=== PATIENT | female | born 1975 | race American Indian/Alaskan Native ===

== ENCOUNTER 2018-09-14 01:53 | Inpatient (IN) | payer SELFPAY ==
--- NOTE | 2018-09-14 02:35 | Emergency Department Report ---
ED Abdominal Pain HPI - General Stated Complaint: N & V Time Seen by Provider: 09/14/18 02:04 - History of Present Illness Initial Comments: 43-year-old presents to ED with complaint of abdominal pain. Patient is accompanied by her mother who is her slot machine mechanic. States patient has history of a learning disability, however no other medical problems. Mother reports patient has been having abdominal pain, had one episode of emesis earlier today. Mother states they were both walking home from a friend's house and patient seemed to become weak and have trouble walking. Denies fever, cough, diarrhea or constipation. Patient is poor historian, able to somewhat answer questions. MD Complaint: abdominal pain -: days(s) (1) Location: suprapubic Quality: other (unable to state) Consistency: other (unable to state) Associated Symptoms: nausea, vomiting. denies: diarrhea, fever, chills, constipation - Related Data Home Medications Medication Instructions Recorded Confirmed Last Taken No Known Home Medications [No 09/14/18 09/14/18 Unknown Reported Home Medications] Allergies Allergy/AdvReac Type Severity Reaction Status Date / Time No Known Allergies Allergy Unverified 09/14/18 02:35 ED Review of Systems ROS: Stated complaint: N & V Other details as noted in HPI Comment: Unobtainable due to pts medical conditions (pt is poor historian) Genitourinary: abnormal menses (mother reports heavy menstrual periods recently) ED Past Medical Hx - Medications Home Medications: Home Medications Medication Instructions Recorded Confirmed Last Taken Type No Known Home Medications [No 09/14/18 09/14/18 Unknown History Reported Home Medications] ED Physical Exam - General General appearance: alert, in no apparent distress - Head Head exam: Present: atraumatic, normocephalic - Eye Eye exam: Present: normal appearance - ENT ENT exam: Present: mucous membranes moist - Neck Neck exam: Present: normal inspection - Respiratory Respiratory exam: Present: normal lung sounds bilaterally. Absent: respiratory distress - Cardiovascular Cardiovascular Exam: Present: regular rate, normal rhythm - GI/Abdominal GI/Abdominal exam: Present: tenderness, other (firm mass palpated in lower abdomen). Absent: distended - Rectal Rectal exam: Present: heme (-) stool - External exam: Present: other (no active bleeding) - Extremities Exam Extremities exam: Present: normal inspection - Neurological Exam Neurological exam: Present: alert, other (moves all extremities) - Skin Skin exam: Present: warm, dry, intact, normal color ED Course Vital Signs 09/14/18 09/14/18 09/14/18 02:25 03:30 05:00 Temperature 97.2 F L 93.3 F L Pulse Rate 81 65 91 H Respiratory 22 20 35 H Rate Blood Pressure 108/72 Blood Pressure 102/60 97/54 [Left] O2 Sat by Pulse 97 99 99 Oximetry 09/14/18 09/14/18 09/14/18 05:56 06:22 06:30 Temperature Pulse Rate 89 94 H 95 H Respiratory 31 H 22 Rate Blood Pressure Blood Pressure 93/53 [Left] O2 Sat by Pulse 99 99 Oximetry ED Medical Decision Making - Lab Data Result diagrams: 09/14/18 20:21 09/14/18 20:21 - Radiology Data Radiology results: report reviewed, image reviewed - Medical Decision Making 43 year old female with weakness and abdominal pain. Patient is poor historian. Mom states no PCP, no history of any medical problems, only a learning disability. On exam patient has firm mass in the suprapubic area. Per CT, this seems to be a fibroid uterus. Mother states patient has been recently having heavy periods. Patient's hemoglobin resulted at 2.7. This was confirmed on repeat. Patient has multiple lab abnormalities including mildly elevated WBCs, severely elevated lactic acid, bicarbonate level of 8. Blood and urine cultures sent, patient covered empirically with antibiotics. Patient resuscitated with IV fluids, 4 units of PRBCs ordered for patient, along with a bicarbonate drip. Patient also has elevated anion gap, however, glucose normal, alcohol level normal, only trace ketones in the urine. Patient also has acute renal failure with creatinine of 1.8. Spoke w/ hospitalist, Dr Leroy, for admission. Requests bridge orders be placed. - Differential Diagnosis fibroids, , constipation Critical Care Time: Yes Critical care time in (mins) excluding proc time.: 60 Critical care attestation.: If time is entered above; I have spent that time in minutes in the direct care of this critically ill patient, excluding procedure time. Critical Care Time: 60 minutes ED Disposition Clinical Impression: Severe anemia, Fibroid uterus, Metabolic acidosis, Acute renal failure, Menorrhagia Disposition: OP ADMIT IP TO THIS HOSP Is pt being admited?: Yes Condition: Critical Time of Disposition: 04:59
[2018-09-14 03:04] LABS: Red Blood Count 1.27 M/mm3 (3.65-5.03)
[2018-09-14 03:05] LABS: Hematocrit 10.4 % (30.3-42.9); Hemoglobin 2.7 gm/dl (10.1-14.3); Mean Corpuscular HGB Conc 26 % (30-34); Mean Corpuscular Volume 82 fl (79-97); Red Cell Distribution Width 31.8 % (13.2-15.2)
[2018-09-14 03:06] LABS: Platelet Count 477 K/mm3 (140-440)
[2018-09-14 03:15] LABS: Amorphous Crystals,Urine 2+; Bilirubin,Urine NEG (Negative); Blood,Urine SM (Negative); Color,Urine Yellow (Yellow); Hyaline Casts,Urine 12 /LPF; Mucus,Urine FEW /HPF; Urobilinogen,Urine < 2.0 mg/dL (<2.0)
[2018-09-14 03:17] LABS: Alanine Aminotransferase 23 units/L (7-56); Albumin 4.1 g/dL (3.9-5); BUN/Creatinine Ratio 8; Blood Urea Nitrogen 17 mg/dL (7-17); Calcium 8.6 mg/dL (8.4-10.2); Hemolysis Index 1
[2018-09-14 03:19] LABS: Bilirubin,Direct < 0.2 mg/dL (0-0.2)
[2018-09-14] MEDS ORDERED: NACL 0.9% 1000 ML IV ONE (03:26)
[2018-09-14 03:55] LABS: INR 1.58 (0.87-1.13); Partial Thromboplastin Time 31.1 Sec. (24.2-36.6)
[2018-09-14 04:04] LABS: Albumin 3.9 g/dL (3.9-5); Calcium 8.7 mg/dL (8.4-10.2)
[2018-09-14 04:08] LABS: Amphetamine Screen,Urine PRESUMPTIVE NEGATIVE; Benzodiazepines Screen,Urine PRESUMPTIVE NEGATIVE; Cannabinoid Screen,Urine PRESUMPTIVE NEGATIVE; Cocaine Screen,Urine PRESUMPTIVE NEGATIVE; Methadone Screen,Urine PRESUMPTIVE NEGATIVE; Opiate Screen,Urine PRESUMPTIVE NEGATIVE
[2018-09-14] MEDS ORDERED: ZOSYN/NS 4.5GM/100ML 4.5 GM/100 ML VIAL IV ONE (04:11)
[2018-09-14 04:13] LABS: Hemoglobin 2.7 gm/dl (10.1-14.3); Red Blood Count 1.28 M/mm3 (3.65-5.03)
[2018-09-14 04:14] LABS: Hematocrit 10.4 % (30.3-42.9); Mean Corpuscular HGB Conc 26 % (30-34); Mean Corpuscular Volume 81 fl (79-97)
[2018-09-14 04:15] LABS: Platelet Count 474 K/mm3 (140-440); Red Cell Distribution Width 33.7 % (13.2-15.2)
--- NOTE | 2018-09-14 04:37 | XRay Report ---
FINAL REPORT PROCEDURE: XR CHEST 1V AP TECHNIQUE: Chest radiograph anteroposterior view. CPT 60623 HISTORY: sob COMPARISON: No prior studies are available for comparison. FINDINGS: Heart: The heart is enlarged Mediastinum/Vessels: Normal. Lungs/Pleural space: The lungs are expanded. There are no infiltrates, effusions or pneumothoraces.. Bony thorax: No acute osseous abnormality. Life support devices: None. IMPRESSION: The heart is enlarged The lungs are expanded. There are no infiltrates, effusions or pneumothoraces.. .
--- NOTE | 2018-09-14 04:39 | Cat Scan Report ---
FINAL REPORT PROCEDURE: CT HEAD/BRAIN WO CON TECHNIQUE: Computerized tomography of the head was performed without contrast material. HISTORY: ams COMPARISON: No prior studies are available for comparison. FINDINGS: Skull and scalp: Normal. Paranasal sinuses: Normal. Ventricles and subarachnoid spaces: Normal. Cerebrum: No evidence of hemorrhage, acute infarction or mass . Cerebellum and brainstem: No evidence of hemorrhage, acute infarction or mass. Vasculature: Normal. Comments: None. IMPRESSION: Normal Examination
--- NOTE | 2018-09-14 04:50 | Cat Scan Report ---
FINAL REPORT PROCEDURE: CT ABDOMEN PELVIS WO CON TECHNIQUE: Computerized axial tomography of the abdomen and pelvis was performed without intravenous contrast. This study is performed without intravascular contrast material and its sensitivity for ab dominal and pelvic pathology, including neoplasms, inflammation, abscess, free fluid, thrombosis, art erial dissection and infarction, is reduced compared with a contrast enhanced study. HISTORY: abd pain COMPARISON: No prior studies are available for comparison. FINDINGS: Visualized lower thorax: No significant abnormality. Liver: Normal size and attenuation. Spleen: Normal size and attenuation. Gallbladder and biliary system: The gallbladder is not discretely visible.. Pancreas: Normal. Adrenals: Normal. Kidneys: There are no kidney stones or ureteral stones. There is no hydronephrosis.. GI tract: There is no bowel obstruction, colitis or enteritis. The appendix is normal.. Lymph nodes and mesentery: Normal. Vasculature: Normal. Bladder: Normal. Reproductive organs: The uterus is enlarged and contains multiple fibroid tumors. The overall size of the uterus including the fibroids is 25 centimeters by 15 centimeters x 11 centimeters. Several fibr oids are partially calcified and necrotic. No discrete ovarian abnormality is identified.. Peritoneum: There is no ascites or free air, abscess or adenopathy.. Musculoskeletal structures: No significant abnormality. IMPRESSION: The gallbladder is not discretely visible. There are no kidney stones or ureteral stones. There is no hydronephrosis. There is no bowel obstruction, colitis or enteritis. The appendix is normal. The uterus is enlarged and contains multiple fibroid tumors. The overall size of the uterus including the fibroids is 25 centimeters by 15 centimeters x 11 centimeters. Several fibroids are partially ca lcified and necrotic. No discrete ovarian abnormality is identified. There is no ascites or free air, abscess or adenopathy.
[2018-09-14] MEDS ORDERED: NACL 0.9% 500 ML 500 ML IV ONE (04:56)
[2018-09-14] MEDS ORDERED: SODIUM BICARBONATE 50 MEQ in NACL 0.9% 1000 ML 1,000 ML IV ONE (04:57)
[2018-09-14 05:11] LABS: Band Neutrophils # (Manual) 0.3 K/mm3; Basophils % (Manual) 0 % (0.0-1.8); Eosinophils % (Manual) 0 % (0.0-4.3); Total Cells Counted 100
[2018-09-14 05:12] LABS: Anisocytosis 2+; Hypochromasia 2+; Ovalocytes Few; Poikilocytosis 1+; Spherocytes Few; Tear Drop Cells Few
[2018-09-14 05:13] LABS: Platelet Estimate Consistent w Auto
[2018-09-14 05:14] LABS: Anisocytosis 2+; Band Neutrophils # (Manual) 0.4 K/mm3; Basophils % (Manual) 0 % (0.0-1.8); Eosinophils % (Manual) 0 % (0.0-4.3); Hypochromasia 2+; Poikilocytosis 1+; Spherocytes Few; Total Cells Counted 100
[2018-09-14 05:15] LABS: Ovalocytes Few; Platelet Estimate Consistent w Auto; Tear Drop Cells Few
--- NOTE | 2018-09-14 07:46 | History and Physical Report ---
History of Present Illness Date of examination: 09/14/18 Date of admission: 09/14/18 05:20 Chief complaint: Nausea vomiting abdominal pain 2 days History of present illness: 43-year-old female patient with significant past medical history of menorrhagia with heavy periods for the last 2-3 months Was brought to the emergency room with nausea and vomiting and abdominal pain of 2-3 days duration Patient and her mother both are poor historians, report that she had about 3-4 episodes of vomiting, denies hematemesis or melena No history of fever, does not have a physician, not on any medications, has noticed heavy periods passing clots for the last 2-3 months Last period ended on 07 of September, no active bleeding today Initial workup in the emergency room is consistent with severe anemia with hemoglobin of 2.7 CT abdomen and pelvis show fibroid uterus 2515 cm Patient also has severe metabolic and lactic acidosis, acute kidney injury, possible sepsis No other history available Patient is receiving second unit of PRBC. Past History Past Medical History: other (menorrhagia) Past Surgical History: tonsillectomy (dictated) Social history: lives with family. denies: smoking, alcohol abuse, prescription drug abuse Family history: hypertension Medications and Allergies Allergies Allergy/AdvReac Type Severity Reaction Status Date / Time No Known Allergies Allergy Unverified 09/14/18 02:35 Home Medications Medication Instructions Recorded Confirmed Last Taken Type No Known Home Medications [No 09/14/18 09/14/18 Unknown History Reported Home Medications] Active Meds: Active Medications Sodium Bicarbonate 50 meq/ (Sodium Chloride) 1,050 mls @ 100 mls/hr IV DIRECT ONE Stop: 09/14/18 15:26 Last Admin: 09/14/18 05:49 Dose: 100 mls/hr Documented by: Review of Systems Constitutional: weakness, no weight loss, no weight gain, no fever, no chills Ears, nose, mouth and throat: no ear discharge, no nasal congestion Cardiovascular: lightheadedness, no chest pain, no palpitations, no shortness of breath Respiratory: no cough with sputum, no hemoptysis, no shortness of breath Gastrointestinal: abdominal pain, nausea, vomiting, no diarrhea, no hematemesis Genitourinary Female: menorrhagia, other (fibroid uterus), no flank pain, no dysuria Menstruation: other (menorrhagia) Musculoskeletal: no myalgias, no arthritis Integumentary: no rash, no lesions Neurological: other (?developmental delay) Psychiatric: no anxiety, no depression Endocrine: no cold intolerance Hematologic/Lymphatic: no easy bruising, no easy bleeding Allergic/Immunologic: no urticaria, no allergic rhinitis Exam - Constitutional Vitals: Temp Pulse Resp BP Pulse Ox 93.3 F L 89 31 H 93/53 99 09/14/18 05:00 09/14/18 05:56 09/14/18 05:56 09/14/18 05:56 09/14/18 05:56 General appearance: Present: no acute distress, well-nourished, other (alert awake responding appropriately) - EENT Eyes: Present: PERRL, EOM intact - Neck Neck: Present: supple, normal ROM - Respiratory Respiratory effort: normal Respiratory: bilateral: diminished, negative: rales, rhonchi, wheezing - Cardiovascular Rhythm: regular Heart Sounds: Present: S1 & S2 - Extremities Extremities: no ischemia, No edema - Abdominal General gastrointestinal: Present: soft, non-tender, non-distended, normal bowel sounds - Integumentary Integumentary: Present: clear, warm - Musculoskeletal Musculoskeletal: strength equal bilaterally, generalized weakness - Psychiatric Psychiatric: appropriate mood/affect, other (slow speech, poor understanding) - Neurologic Neurologic: moves all extremities Results - Labs CBC & Chem 7: 09/14/18 09:20 09/14/18 03:14 Labs: Abnormal lab results 09/14/18 09/14/18 09/14/18 Range/Units 02:42 02:42 03:14 WBC 13.8 H (4.5-11.0) K/mm3 RBC 1.27 L (3.65-5.03) M/mm3 Hgb 2.7 L* (10.1-14.3) gm/dl Hct 10.4 L* (30.3-42.9) % MCH 21 L (28-32) pg MCHC 26 L (30-34) % RDW 31.8 H (13.2-15.2) % Plt Count 477 H (140-440) K/mm3 Seg Neuts % (Manual) 89.0 H (40.0-70.0) % Lymphocytes % (Manual) 7.0 L (13.4-35.0) % Nucleated RBC % 3.0 H (0.0-0.9) % Seg Neutrophils # Man 12.3 H (1.8-7.7) K/mm3 Lymphocytes # (Manual) 1.0 L (1.2-5.4) K/mm3 PT (12.2-14.9) Sec. INR (0.87-1.13) Chloride (98-107) mmol/L Carbon Dioxide 8 L* (22-30) mmol/L Creatinine 2.2 H (0.7-1.2) mg/dL Lactic Acid (0.7-2.0) mmol/L AST 42 H (5-40) units/L Lipase 74 H (13-60) units/L Salicylates (2.8-20.0) mg/dL Acetaminophen (10.0-30.0) ug/mL Crossmatch See Detail 09/14/18 09/14/18 09/14/18 Range/Units 03:14 03:14 03:14 WBC 13.6 H (4.5-11.0) K/mm3 RBC 1.28 L (3.65-5.03) M/mm3 Hgb 2.7 L* (10.1-14.3) gm/dl Hct 10.4 L* (30.3-42.9) % MCH 21 L (28-32) pg MCHC 26 L (30-34) % RDW 33.7 H (13.2-15.2) % Plt Count 474 H (140-440) K/mm3 Seg Neuts % (Manual) 85.0 H (40.0-70.0) % Lymphocytes % (Manual) 7.0 L (13.4-35.0) % Nucleated RBC % 2.0 H (0.0-0.9) % Seg Neutrophils # Man 11.6 H (1.8-7.7) K/mm3 Lymphocytes # (Manual) 1.0 L (1.2-5.4) K/mm3 PT 19.3 H (12.2-14.9) Sec. INR 1.58 H (0.87-1.13) Chloride 97.4 L (98-107) mmol/L Carbon Dioxide 8 L* (22-30) mmol/L Creatinine 1.8 H (0.7-1.2) mg/dL Lactic Acid (0.7-2.0) mmol/L AST 42 H (5-40) units/L Lipase (13-60) units/L Salicylates (2.8-20.0) mg/dL Acetaminophen (10.0-30.0) ug/mL Crossmatch 09/14/18 09/14/18 09/14/18 Range/Units 03:14 04:50 04:50 WBC (4.5-11.0) K/mm3 RBC (3.65-5.03) M/mm3 Hgb (10.1-14.3) gm/dl Hct (30.3-42.9) % MCH (28-32) pg MCHC (30-34) % RDW (13.2-15.2) % Plt Count (140-440) K/mm3 Seg Neuts % (Manual) (40.0-70.0) % Lymphocytes % (Manual) (13.4-35.0) % Nucleated RBC % (0.0-0.9) % Seg Neutrophils # Man (1.8-7.7) K/mm3 Lymphocytes # (Manual) (1.2-5.4) K/mm3 PT (12.2-14.9) Sec. INR (0.87-1.13) Chloride (98-107) mmol/L Carbon Dioxide (22-30) mmol/L Creatinine (0.7-1.2) mg/dL Lactic Acid 17.30 H* (0.7-2.0) mmol/L AST (5-40) units/L Lipase (13-60) units/L Salicylates < 0.3 L (2.8-20.0) mg/dL Acetaminophen < 5.0 L (10.0-30.0) ug/mL Crossmatch 09/14/18 Range/Units 04:50 WBC (4.5-11.0) K/mm3 RBC (3.65-5.03) M/mm3 Hgb (10.1-14.3) gm/dl Hct (30.3-42.9) % MCH (28-32) pg MCHC (30-34) % RDW (13.2-15.2) % Plt Count (140-440) K/mm3 Seg Neuts % (Manual) (40.0-70.0) % Lymphocytes % (Manual) (13.4-35.0) % Nucleated RBC % (0.0-0.9) % Seg Neutrophils # Man (1.8-7.7) K/mm3 Lymphocytes # (Manual) (1.2-5.4) K/mm3 PT (12.2-14.9) Sec. INR (0.87-1.13) Chloride (98-107) mmol/L Carbon Dioxide (22-30) mmol/L Creatinine (0.7-1.2) mg/dL Lactic Acid 15.30 H* (0.7-2.0) mmol/L AST (5-40) units/L Lipase (13-60) units/L Salicylates (2.8-20.0) mg/dL Acetaminophen (10.0-30.0) ug/mL Crossmatch Assessment and Plan --Severe anemia; secondary to menorrhagia due to fibroid uterus Type and cross, transfuse 4 units of PRBC Patient has no active bleeding today --Menorrhagia; secondary to fibroid uterus [facility] evaluation --Acute versus acute on chronic blood loss anemia; Transfuse PRBC, iron profile --History of fibroid uterus; no active bleeding [facility] evaluation --Acute kidney injury; vasomotor nephropathy Gentle IV hydration, avoid nephrotoxins, nephrology evaluation if needed --Lactic acidosis; probably secondary to metabolic acidosis Rule out sepsis, closely monitor --Severe metabolic acidosis; IV hydration, bicarbonate therapy as needed --Possible sepsis; empiric antibiotics Vanco and Zosyn Blood cultures, urine cultures, supportive care --Mild acute pancreatitis; mild elevation of lipase IV fluids, supportive cares --DVT prophylaxis; SCDs No pharmacological anticoagulation in view of severe anemia Closely monitor the patient and adjust management as needed Critical care time 50 minutes Follow critical care [facility] evaluation and recommendations Plan of care is reviewed with the patient, her mother at the bedside as well as her nurse
[2018-09-14] MEDS ORDERED: NACL 0.9% 500 ML 500 ML ONE (07:51)
[2018-09-14] MEDS ORDERED: VANCOMYCIN/NS 1 GM/250 ML 1 GM/250 ML BAG IV SCH (08:00)
[2018-09-14] MEDS ORDERED: NACL 0.9% 1000 ML 1,000 ML IV SCH (08:00)
[2018-09-14 09:47] LABS: Hematocrit 15.1 % (30.3-42.9); Hemoglobin 4.8 gm/dl (10.1-14.3)
[2018-09-14] MEDS ORDERED: LASIX IV ONE ×2 (10:00→12:30)
[2018-09-14] MEDS ORDERED: NACL 0.9% 1000 ML 1,000 ML with SODIUM BICARBONATE 50 MEQ IV SCH (10:00)
[2018-09-14] MEDS ORDERED: PROTONIX IV SCH (10:00)
[2018-09-14] MEDS ORDERED: VANCOMYCIN 1,250 MG in NACL 0.9% 250ML 250 ML IV ONE (11:00)
--- NOTE | 2018-09-14 11:26 | Consultation ---
History of Present Illness Consult date: 09/14/18 Requesting physician: FRANCISCO TODD History of present illness: PULMONARY/CCM CONSULT NOTE (Full dictation # [id number]) Please see dictated notes for full details Past History Past Medical History: other (menorrhagia) Past Surgical History: tonsillectomy (dictated) Social history: lives with family. denies: smoking, alcohol abuse, prescription drug abuse Family history: hypertension Medications and Allergies Allergies Allergy/AdvReac Type Severity Reaction Status Date / Time No Known Allergies Allergy Unverified 09/14/18 02:35 Home Medications Medication Instructions Recorded Confirmed Last Taken Type No Known Home Medications [No 09/14/18 09/14/18 Unknown History Reported Home Medications] Active Meds: Active Medications Piperacillin Sod/Tazobactam Sod (Zosyn/Ns 4.5gm/100ml) 4.5 gm in 100 mls @ 200 mls/hr IV Q8HR RAHEL; Protocol Sodium Bicarbonate 50 meq/ (Sodium Chloride) 1,050 mls @ 75 mls/hr IV DIRECT RAHEL Vancomycin HCl 1,250 mg/ (Sodium Chloride) 275 mls @ 166.667 mls/hr IV ONCE ONE Stop: 09/14/18 12:38 Vancomycin HCl (Vancomycin/Ns 1 Gm/250 Ml) 1 gm in 250 mls @ 167.007 mls/hr IV Q24HR RAHEL Pantoprazole Sodium (Protonix) 40 mg IV QDAY RAHEL Physical Examination Vital signs: Vital Signs Temp Pulse Resp BP Pulse Ox 97.2 F L 81 22 108/72 97 09/14/18 02:25 09/14/18 02:25 09/14/18 02:25 09/14/18 02:25 09/14/18 02:25 Results - Laboratory Findings CBC and BMP: 09/14/18 09:20 09/14/18 03:14 PT/INR, D-dimer PT 19.3 Sec. (12.2-14.9) H 09/14/18 03:14 INR 1.58 (0.87-1.13) H 09/14/18 03:14 Abnormal lab findings: Abnormal Labs 09/14/18 09/14/18 09/14/18 02:42 02:42 03:14 WBC 13.8 H RBC 1.27 L Hgb 2.7 L* Hct 10.4 L* MCH 21 L MCHC 26 L RDW 31.8 H Plt Count 477 H Seg Neuts % (Manual) 89.0 H Lymphocytes % (Manual) 7.0 L Nucleated RBC % 3.0 H Seg Neutrophils # Man 12.3 H Lymphocytes # (Manual) 1.0 L PT INR Chloride Carbon Dioxide 8 L* Creatinine 2.2 H Lactic Acid AST 42 H Lipase 74 H Salicylates Acetaminophen Crossmatch See Detail 09/14/18 09/14/18 09/14/18 03:14 03:14 03:14 WBC 13.6 H RBC 1.28 L Hgb 2.7 L* Hct 10.4 L* MCH 21 L MCHC 26 L RDW 33.7 H Plt Count 474 H Seg Neuts % (Manual) 85.0 H Lymphocytes % (Manual) 7.0 L Nucleated RBC % 2.0 H Seg Neutrophils # Man 11.6 H Lymphocytes # (Manual) 1.0 L PT 19.3 H INR 1.58 H Chloride 97.4 L Carbon Dioxide 8 L* Creatinine 1.8 H Lactic Acid AST 42 H Lipase Salicylates Acetaminophen Crossmatch 09/14/18 09/14/18 09/14/18 03:14 04:50 04:50 WBC RBC Hgb Hct MCH MCHC RDW Plt Count Seg Neuts % (Manual) Lymphocytes % (Manual) Nucleated RBC % Seg Neutrophils # Man Lymphocytes # (Manual) PT INR Chloride Carbon Dioxide Creatinine Lactic Acid 17.30 H* AST Lipase Salicylates < 0.3 L Acetaminophen < 5.0 L Crossmatch 09/14/18 09/14/18 04:50 09:20 WBC RBC Hgb 4.8 L* Hct 15.1 L* MCH MCHC RDW Plt Count Seg Neuts % (Manual) Lymphocytes % (Manual) Nucleated RBC % Seg Neutrophils # Man Lymphocytes # (Manual) PT INR Chloride Carbon Dioxide Creatinine Lactic Acid 15.30 H* AST Lipase Salicylates Acetaminophen Crossmatch
[2018-09-14] MEDS ORDERED: ZOSYN/NS 4.5GM/100ML 4.5 GM/100 ML VIAL IV SCH (14:00)
[2018-09-14] MEDS ORDERED: NACL 0.9% 500 ML 500 ML IV NR (14:33)
[2018-09-14] MEDS: ZOSYN/NS 2.25 GM/50ML 2.25 GM/50 ML BAG IV SCH ×2 (14:40→22:30)
--- NOTE | 2018-09-14 16:38 | Consultation ---
PULMONARY CRITICAL CARE CONSULTATION CONSULTING PHYSICIAN: Dr. Pierre, Emergency Room physician. REASON FOR CONSULTATION: Critical care management, severe symptomatic anemia, hemoglobin 2.7. CHIEF COMPLAINT AND HISTORY OF PRESENT ILLNESS: The patient is a 43-year-old -[place]aysian female with mild mental retardation otherwise and a history of menorrhagia with heavy periods. According to the mother, this was diagnosed early last year. She denies significantly heavy periods of late. Her history has been back and forth, but she told other physicians that she has had heavy periods for the last 2-3 months. She told me that her most recent period lasted 6 days instead of 3 days. She described as having clots during the period. She denies any hematochezia, melena, hematemesis, hemoptysis, or gross hematuria. She was brought into the Emergency Room secondary to nausea, vomiting, and abdominal pain that had been going on for about 2-3 days. In the initial workup, she was found to have a serum hemoglobin of 2.[address] abdomen and pelvis showed a fibroid uterus with the largest one of about 25 x 15 cm. She was found to have a severe metabolic acidosis and anion gap metabolic acidosis with a significant lactic acidosis also. She was admitted with early sepsis and we are asked to assist with management. When I stopped by to see the patient, she was feeling better. She had received 2 units of PRBC and was on her third unit. She did seem to also mention some chest pain. She denied any fevers or chills otherwise. The patient is a nonsmoker. That really is as much of the history of this presentation as I have. PAST MEDICAL HISTORY: Menorrhagia. PAST SURGICAL HISTORY: Tonsillectomy. MEDICATIONS: She was on at the time I stopped by to see her were reviewed. Pertinent medications included the following: Protonix 40 mg IV daily, Zosyn 2.25 grams IV q. 8 hours, sodium bicarbonate drip 50 mEq per liter of normal saline running at 75 mL per hour, also vancomycin 1 gram IV q. 24 hours. ALLERGIES: No known drug allergies. DIET: Well-built lady. Family denies acute weight loss or gain in the preceding few weeks to months. FAMILY AND SOCIAL HISTORY: Lives with her mother. Denies alcohol, tobacco, or illicit drug use or abuse. Family history, otherwise significant only for hypertension. REVIEW OF SYSTEMS: Difficult to obtain secondary to the patient's mental status. Otherwise, it is as in the body of the history above. She has had no seizures since she has been over here and no loss of consciousness. PHYSICAL EXAMINATION: VITAL SIGNS: At presentation in the emergency room, she was initially 97.2 Fahrenheit, but dropped to 93.3 degrees Fahrenheit with a pulse of 91, respiratory rate of 35, and blood pressure 97/54 with O2 sats of 99%, inspired oxygen concentration at that time was not recorded. When I stopped her, she was 100% on 2 liters nasal cannula. GENERAL: She is a well-built, middle-aged -Malaysian female with facies of mental retardation, resting peacefully in bed with a normal respiratory effort at rest. HEAD, EYES, EARS, NOSE, AND THROAT: She is anicteric. No conjunctival erythema. Oropharynx is moist. She is partially dentulous. No gross jugular venous distention, no thyromegaly. Grossly, no palpable lymph nodes in the supraclavicular or submandibular lymph node chains. LUNGS: Auscultation of both lung [place] unremarkable. Lungs are clear bilaterally. HEART: Heart sounds 1 and 2 are heard. They were regular in rate and rhythm at the time of my evaluation, without rubs or murmurs. ABDOMEN: Soft. It is protuberant. There is infraumbilical swelling that probably is related to the fibroid in question. It is mildly tender. EXTREMITIES: Without overt digital clubbing or cyanosis. No pedal edema. Dorsalis pedis pulses are palpable bilaterally. NEUROLOGIC: Pupils are equal, round, about 3 mm. Extraocular muscle movements are intact. They are reactive to light. She moves all 4 extremities spontaneously. SKIN: The skin is of normal turgor without cellulitis or rash. LABORATORY DATA: From my review are as follows: Admission white cell count 13,600 with a hemoglobin of 2.7, hematocrit of 10.4, platelet count of 474. No significant band forms reported. INR is elevated at 1.58. Serum sodium is 138, potassium 3.9, chloride 97, bicarbonate 8, BUN 17, creatinine 1.8, glucose was 82. Anion gap of 37 with a lactic acid level of 17.3 at that time. Liver function test: AST 42, otherwise essentially within normal limits. Lipase was slightly elevated at 74. Urinalysis was negative for leukocyte esterase and nitrites. Urine drug screen was negative. Aspirin, Tylenol, and alcohol levels were within expected limits. Two sets of blood cultures, no growth to date. A chest x-ray was done. I have reviewed the chest x-ray. I have also reviewed the radiologist's interpretation. I do agree there is gross cardiomegaly. There is slight increase in interstitial markings, nothing major. Perhaps mild interstitial edema, no gross pneumothorax, no gross bony fracture. A CT scan was also done of the abdomen and pelvis essentially reports the fibroid in question, describing it as 25 x 15 x 11 cm. There are multiple fibroids that are partially calcified necrotic. No discrete ovarian abnormality otherwise, no abscess, no hydronephrosis. A CT scan also of her head was done and that was read as being normal examination. ASSESSMENT: 1. Severe symptomatic anemia, probably secondary to menorrhagia, probably secondary to multiple uterine fibroids. 2. Menorrhagia. 3. Multiple uterine fibroids. 4. Acute blood loss anemia with a normal MCV, I doubt we are dealing with a chronic anemia. 5. Acute kidney injury, possibly vasomotor nephropathy. 6. Lactic acidosis. 7. Systemic inflammatory response syndrome. 8. Severe metabolic acidosis. 9. Early sepsis. 10. Possible pancreatitis. 11. Mild mental retardation. 12. Leukocytosis. 13. Elevated serum INR. PLAN: I do feel also we need to rule out the ingestion of any occult fluid that may actually cause this high anion gap metabolic acidosis. I will order a serum osmolality just to make sure we are not dealing with a high osmolar gap acidosis. We will continue blood transfusions. She will also get platelets and cryoprecipitate. ROAD TRAFFIC CONTROLLER consultation will be in order, as with this degree of anemia she might benefit from a fibroidectomy or perhaps even a hysterectomy. Oxygen will be supplemented to keep sats greater than or equal to about 90%. She will be on GI and DVT prophylaxis. I will repeat a lactic acid level to ensure that we are headed in the right direction. We will continue empiric antibiotic therapy for now, but I will also get a CRP level to help need a clinical decision making and antibiotic de-escalation. Flu and pneumonia vaccination will be addressed per protocol. Hematology consultation has been placed. Thank you very much for the consult. We will follow along. We will make further recommendations as picture progresses/becomes clearer. Hopefully, she tolerates the blood transfusions. She is looking much better and she can hopefully be transferred to a telemetry floor later today. JOB# [id number] DEBBY/WOO RAMIRES
[2018-09-14 20:44] LABS: Hematocrit 23.8 % (30.3-42.9); Hemoglobin 7.5 gm/dl (10.1-14.3); Mean Corpuscular HGB Conc 32 % (30-34); Mean Corpuscular Volume 82 fl (79-97); Platelet Count 329 K/mm3 (140-440); Red Blood Count 2.91 M/mm3 (3.65-5.03)
[2018-09-14 20:49] LABS: Red Cell Distribution Width 23.6 % (13.2-15.2)
[2018-09-14 20:57] LABS: Calcium 7.9 mg/dL (8.4-10.2)
[2018-09-14 21:31] LABS: Basophils % (Manual) 0 % (0.0-1.8); Eosinophils % (Manual) 0 % (0.0-4.3); Total Cells Counted 100
[2018-09-14 21:32] LABS: Platelet Estimate Consistent w Auto
[2018-09-14 21:33] LABS: Anisocytosis 1+; Ovalocytes Rare; Poikilocytosis 1+; Tear Drop Cells Rare
[2018-09-14 21:34] LABS: Spherocytes Rare
[2018-09-15 00:42] LABS: BUN/Creatinine Ratio 13; Blood Urea Nitrogen 14 mg/dL (7-17); Calcium 7.8 mg/dL (8.4-10.2); Hemolysis Index 1
[2018-09-15 00:50] LABS: Hematocrit 23.7 % (30.3-42.9); Hemoglobin 7.5 gm/dl (10.1-14.3)
[2018-09-15 05:48] LABS: Alanine Aminotransferase 48 units/L (7-56); Albumin 3.4 g/dL (3.9-5); BUN/Creatinine Ratio 12; Blood Urea Nitrogen 13 mg/dL (7-17); Calcium 7.8 mg/dL (8.4-10.2); Hemolysis Index 0
[2018-09-15 05:51] LABS: Hemoglobin 8.1 gm/dl (10.1-14.3); Mean Corpuscular HGB Conc 32 % (30-34); Mean Corpuscular Volume 82 fl (79-97); Platelet Count 310 K/mm3 (140-440); Red Blood Count 3.06 M/mm3 (3.65-5.03)
[2018-09-15 05:56] LABS: Red Cell Distribution Width 23.8 % (13.2-15.2)
[2018-09-15] MEDS: SODIUM BICARBONATE 50 MEQ in NACL 0.9% 1000 ML 1,000 ML IV SCH ×2 (07:00→18:13)
[2018-09-15 07:14] LABS: Anisocytosis 1+; Band Neutrophils # (Manual) 0.2 K/mm3; Basophils % (Manual) 0 % (0.0-1.8); Eosinophils % (Manual) 0 % (0.0-4.3); Total Cells Counted 100
[2018-09-15 07:15] LABS: Ovalocytes Few; Platelet Estimate Consistent w Auto; Spherocytes Rare
--- NOTE | 2018-09-15 08:42 | Progress Note ---
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 versus outpatient --History of fibroid uterus; no active bleeding, Out pt ARCHITECTURAL WOOD MODEL MAKER evaluation --Acute kidney injury; vasomotor nephropathy Resolved, gentle hydration and closely monitor renal function --Lactic acidosis; probably secondary to metabolic acidosis Rule out sepsis, lactic acid trending down --Severe metabolic acidosis; IV hydration, significant improvement Symptoms improved --Possible sepsis; empiric antibiotics Vanco and Zosyn Blood cultures, urine cultures, supportive care --Mild acute pancreatitis; mild elevation of lipase IV fluids, supportive cares --DVT prophylaxis; SCDs No pharmacological anticoagulation in view of severe anemia Possible discharge in 1-2 days if stable Critical care time 31 min Plan of care is reviewed with the patient, her mother at the bedside as well as her nurse Patient is stable to be transferred out of ICU to medical floor History Interval history: Patient seen and examined medical records reviewed No new events reported by the nursing Patient's hemoglobin significantly improved after 4 units of transfusion No active bleeding, Patient is comfortable Vital signs noted Hospitalist Physical - Constitutional Vitals: Temp Pulse Resp BP Pulse Ox 98.4 F 65 19 119/62 100 09/15/18 03:48 09/15/18 06:50 09/15/18 06:50 09/15/18 06:50 09/15/18 06:50 General appearance: Present: no acute distress, well-nourished, other (alert awake responding appropriately) - EENT Eyes: Present: PERRL, EOM intact - Neck Neck: Present: supple, normal ROM - Respiratory Respiratory effort: normal Respiratory: bilateral: diminished, negative: rales, rhonchi, wheezing - Cardiovascular Rhythm: regular Heart Sounds: Present: S1 & S2 - Extremities Extremities: no ischemia, No edema - Abdominal General gastrointestinal: soft, non-tender, non-distended, normal bowel sounds - Integumentary Integumentary: Present: clear, warm - Psychiatric Psychiatric: appropriate mood/affect, cooperative - Neurologic Neurologic: moves all extremities Results - Labs CBC & Chem 7: 09/15/18 04:07 09/15/18 04:07 Labs: Laboratory Last Values WBC 12.3 K/mm3 (4.5-11.0) H 09/15/18 04:07 RBC 3.06 M/mm3 (3.65-5.03) L 09/15/18 04:07 Hgb 8.1 gm/dl (10.1-14.3) L 09/15/18 04:07 Hct 25.0 % (30.3-42.9) L 09/15/18 04:07 MCV 82 fl (79-97) 09/15/18 04:07 MCH 26 pg (28-32) L 09/15/18 04:07 MCHC 32 % (30-34) 09/15/18 04:07 RDW 23.8 % (13.2-15.2) H 09/15/18 04:07 Plt Count 310 K/mm3 (140-440) 09/15/18 04:07 Lymph % (Auto) Ignition Specialist 09/14/18 03:14 [place] % (Auto) Ignition Specialist 09/14/18 03:14 Eos % (Auto) Ignition Specialist 09/14/18 03:14 Baso % (Auto) Ignition Specialist 09/14/18 03:14 Lymph # Ignition Specialist 09/14/18 03:14 [place] # Ignition Specialist 09/14/18 03:14 Eos # Ignition Specialist 09/14/18 03:14 Baso # Ignition Specialist 09/14/18 03:14 Add Manual Diff Complete 09/15/18 04:07 Total Counted 100 09/15/18 04:07 Seg Neutrophils % Ignition Specialist 09/14/18 03:14 Seg Neuts % (Manual) 85.0 % (40.0-70.0) H 09/15/18 04:07 Band Neutrophils % 2.0 % 09/15/18 04:07 Lymphocytes % (Manual) 9.0 % (13.4-35.0) L 09/15/18 04:07 Reactive Lymphs % (Man) 0 % 09/15/18 04:07 Monocytes % (Manual) 4.0 % (0.0-7.3) 09/15/18 04:07 Eosinophils % (Manual) 0 % (0.0-4.3) 09/15/18 04:07 Basophils % (Manual) 0 % (0.0-1.8) 09/15/18 04:07 Metamyelocytes % 0 % 09/15/18 04:07 Myelocytes % 0 % 09/15/18 04:07 Promyelocytes % 0 % 09/15/18 04:07 Blast Cells % 0 % 09/15/18 04:07 Nucleated RBC % 5.0 % (0.0-0.9) H 09/15/18 04:07 Seg Neutrophils # Ignition Specialist 09/14/18 03:14 Seg Neutrophils # Man 10.5 K/mm3 (1.8-7.7) H 09/15/18 04:07 Band Neutrophils # 0.2 K/mm3 09/15/18 04:07 Lymphocytes # (Manual) 1.1 K/mm3 (1.2-5.4) L 09/15/18 04:07 Abs React Lymphs (Man) 0.0 K/mm3 09/15/18 04:07 Monocytes # (Manual) 0.5 K/mm3 (0.0-0.8) 09/15/18 04:07 Eosinophils # (Manual) 0.0 K/mm3 (0.0-0.4) 09/15/18 04:07 Basophils # (Manual) 0.0 K/mm3 (0.0-0.1) 09/15/18 04:07 Metamyelocytes # 0.0 K/mm3 09/15/18 04:07 Myelocytes # 0.0 K/mm3 09/15/18 04:07 Promyelocytes # 0.0 K/mm3 09/15/18 04:07 Blast Cells # 0.0 K/mm3 09/15/18 04:07 WBC Morphology Not Reportable 09/15/18 04:07 Hypersegmented Neuts Not Reportable 09/15/18 04:07 Hyposegmented Neuts Not Reportable 09/15/18 04:07 Hypogranular Neuts Not Reportable 09/15/18 04:07 Smudge Cells Not Reportable 09/15/18 04:07 Toxic Granulation Not Reportable 09/15/18 04:07 Toxic Vacuolation Not Reportable 09/15/18 04:07 Dohle Bodies Not Reportable 09/15/18 04:07 Pelger-Huet Anomaly Not Reportable 09/15/18 04:07 Mendel Rods Not Reportable 09/15/18 04:07 Platelet Estimate Consistent w auto 09/15/18 04:07 Clumped Platelets Not Reportable 09/15/18 04:07 Plt Clumps, EDTA Not Reportable 09/15/18 04:07 Large Platelets Not Reportable 09/15/18 04:07 Giant Platelets Not Reportable 09/15/18 04:07 Platelet Satelliting Not Reportable 09/15/18 04:07 Plt Morphology Comment Not Reportable 09/15/18 04:07 RBC Morphology Not Reportable 09/15/18 04:07 Dimorphic RBCs Not Reportable 09/15/18 04:07 Polychromasia Not Reportable 09/15/18 04:07 Hypochromasia Not Reportable 09/15/18 04:07 Poikilocytosis Not Reportable 09/15/18 04:07 Anisocytosis 1+ 09/15/18 04:07 Microcytosis Not Reportable 09/15/18 04:07 Macrocytosis Not Reportable 09/15/18 04:07 Spherocytes Rare 09/15/18 04:07 Pappenheimer Bodies Not Reportable 09/15/18 04:07 Sickle Cells Not Reportable 09/15/18 04:07 Target Cells Not Reportable 09/15/18 04:07 Tear Drop Cells Not Reportable 09/15/18 04:07 Ovalocytes Few 09/15/18 04:07 Helmet Cells Not Reportable 09/15/18 04:07 [place] Bodies Not Reportable 09/15/18 04:07 [place] Rings Not Reportable 09/15/18 04:07 Carla Cells Not Reportable 09/15/18 04:07 Bite Cells Not Reportable 09/15/18 04:07 Crenated Cell Not Reportable 09/15/18 04:07 Elliptocytes Rare 09/15/18 04:07 Acanthocytes (Spur) Not Reportable 09/15/18 04:07 Rouleaux Not Reportable 09/15/18 04:07 Hemoglobin C Crystals Not Reportable 09/15/18 04:07 Schistocytes Not Reportable 09/15/18 04:07 Malaria parasites Not Reportable 09/15/18 04:07 Macho Bodies Not Reportable 09/15/18 04:07 Hem Pathologist Commnt No 09/15/18 04:07 PT 19.3 Sec. (12.2-14.9) H 09/14/18 03:14 INR 1.58 (0.87-1.13) H 09/14/18 03:14 APTT 31.1 Sec. (24.2-36.6) 09/14/18 03:14 POC ABG pH 7.356 (7.35-7.45) 09/14/18 12:39 POC ABG pCO2 30.6 (35-45) L 09/14/18 12:39 POC ABG pO2 41 (80-105) L 09/14/18 12:39 POC ABG HCO3 17.1 09/14/18 12:39 POC ABG Total CO2 18 09/14/18 12:39 POC ABG O2 Sat 75 09/14/18 12:39 POC ABG Base Excess -8 09/14/18 12:39 FiO2 28 % 09/14/18 12:39 Sodium 145 mmol/L (137-145) 09/15/18 04:07 Potassium 3.8 mmol/L (3.6-5.0) 09/15/18 04:07 Chloride 117.4 mmol/L (98-107) H 09/15/18 04:07 Carbon Dioxide 21 mmol/L (22-30) L 09/15/18 04:07 Anion Gap 10 mmol/L 09/15/18 04:07 BUN 13 mg/dL (7-17) 09/15/18 04:07 Creatinine 1.1 mg/dL (0.7-1.2) 09/15/18 04:07 Estimated GFR > 60 ml/min 09/15/18 04:07 BUN/Creatinine Ratio 12 % 09/15/18 04:07 Glucose 79 mg/dL (65-100) 09/15/18 04:07 Osmolality 308 Mosm/kg 09/14/18 04:50 Lactic Acid 1.90 mmol/L (0.7-2.0) 09/14/18 22:49 Calcium 7.8 mg/dL (8.4-10.2) L 09/15/18 04:07 Phosphorus 1.80 mg/dL (2.5-4.5) L 09/15/18 04:07 Magnesium 1.90 mg/dL (1.7-2.3) 09/15/18 04:07 Total Bilirubin 0.80 mg/dL (0.1-1.2) 09/15/18 04:07 Direct Bilirubin < 0.2 mg/dL (0-0.2) 09/14/18 02:42 AST 64 units/L (5-40) H 09/15/18 04:07 ALT 48 units/L (7-56) 09/15/18 04:07 Alkaline Phosphatase 60 units/L (35-129) 09/15/18 04:07 C-Reactive Protein 1.20 mg/dL (0.00-1.30) 09/14/18 04:50 Total Protein 6.6 g/dL (6.3-8.2) 09/15/18 04:07 Albumin 3.4 g/dL (3.9-5) L 09/15/18 04:07 Albumin/Globulin Ratio 1.1 % 09/15/18 04:07 Lipase 74 units/L (13-60) H 09/14/18 02:42 HCG, Quant < 2 mIU/mL (0-4) 09/14/18 02:42 Urine Color Yellow (Yellow) 09/14/18 02:25 Urine Turbidity Slightly-cloudy (Clear) 09/14/18 02:25 Urine pH 5.0 (5.0-7.0) 09/14/18 02:25 Ur Specific [place] 1.008 (1.003-1.030) 09/14/18 02:25 Urine Protein 30 mg/dl mg/dL (Negative) 09/14/18 02:25 Urine Glucose (UA) Neg mg/dL (Negative) 09/14/18 02:25 Urine Ketones Tr mg/dL (Negative) 09/14/18 02:25 Urine Blood Sm (Negative) 09/14/18 02:25 Urine Nitrite Neg (Negative) 09/14/18 02:25 Urine Bilirubin Neg (Negative) 09/14/18 02:25 Urine Urobilinogen < 2.0 mg/dL (<2.0) 09/14/18 02:25 Ur Leukocyte Esterase Neg (Negative) 09/14/18 02:25 Urine WBC (Auto) 1.0 /HPF (0.0-6.0) 09/14/18 02:25 Urine RBC (Auto) 1.0 /HPF (0.0-6.0) 09/14/18 02:25 U Epithel Cells (Auto) 3.0 /HPF (0-13.0) 09/14/18 02:25 Amorphous Crystals 2+ 09/14/18 02:25 Hyaline Casts 12 /LPF 09/14/18 02:25 Urine Mucus Few /HPF 09/14/18 02:25 Salicylates < 0.3 mg/dL (2.8-20.0) L 09/14/18 04:50 Urine Opiates Screen Presumptive negative 09/14/18 03:17 Urine Methadone Screen Presumptive negative 09/14/18 03:17 Acetaminophen < 5.0 ug/mL (10.0-30.0) L 09/14/18 04:50 Ur Barbiturates Screen Presumptive negative 09/14/18 03:17 Ur Phencyclidine Scrn Presumptive negative 09/14/18 03:17 Ur Amphetamines Screen Presumptive negative 09/14/18 03:17 U Benzodiazepines Scrn Presumptive negative 09/14/18 03:17 Urine Cocaine Screen Presumptive negative 09/14/18 03:17 U Marijuana (THC) Screen Presumptive negative 09/14/18 03:17 Drugs of Abuse Note Disclamer 09/14/18 03:17 Plasma/Serum Alcohol < 0.01 % (0-0.07) 09/14/18 04:50 Blood Type B POSITIVE 09/14/18 03:14 Antibody Screen Negative 09/14/18 03:14 Crossmatch See Detail 09/14/18 03:14
[2018-09-15] MEDS ORDERED: KPHOS 40 MMOL in NACL 0.9% 500 ML 500 ML IV ONE (09:00)
[2018-09-15] MEDS: PROTONIX PO SCH (09:37)
[2018-09-15] MEDS: VANCOMYCIN/NS 1 GM/250 ML 1 GM/250 ML BAG IV SCH (09:58)
--- NOTE | 2018-09-15 12:23 | Progress Note ---
Assessment and Plan Severe symptomatic anemia, probably secondary to menorrhagia, probablysecondary to multiple uterine fibroids. Menorrhagia. Multiple uterine fibroids. Acute blood loss anemia with a normal MCV Acute kidney injury, possibly vasomotor nephropathy. Lactic acidosis. Systemic inflammatory response syndrome. Severe metabolic acidosis. Early sepsis. Possible pancreatitis. Mild mental retardation. 1Leukocytosis. Elevated serum INR. Subjective Date of service: 09/15/18 Objective Vital Signs - 12hr 09/15/18 09/15/18 09/15/18 00:30 00:40 00:50 Temperature Pulse Rate 68 71 66 Respiratory 18 17 15 Rate Blood Pressure 118/77 118/77 118/77 O2 Sat by Pulse 100 100 100 Oximetry 09/15/18 09/15/18 09/15/18 01:00 01:10 01:20 Temperature Pulse Rate 71 69 70 Respiratory 19 20 20 Rate Blood Pressure 108/70 108/70 108/70 O2 Sat by Pulse 100 98 99 Oximetry 09/15/18 09/15/18 09/15/18 01:30 01:40 01:50 Temperature Pulse Rate 71 70 69 Respiratory 18 19 21 Rate Blood Pressure 110/64 110/64 110/64 O2 Sat by Pulse 99 98 99 Oximetry 09/15/18 09/15/18 09/15/18 02:00 02:10 02:20 Temperature Pulse Rate 64 68 65 Respiratory 20 21 18 Rate Blood Pressure 110/71 110/71 110/71 O2 Sat by Pulse 97 97 97 Oximetry 09/15/18 09/15/18 09/15/18 02:30 02:40 02:50 Temperature Pulse Rate 66 68 73 Respiratory 21 18 25 H Rate Blood Pressure 113/68 113/68 113/68 O2 Sat by Pulse 97 99 96 Oximetry 09/15/18 09/15/18 09/15/18 03:00 03:10 03:20 Temperature Pulse Rate 71 71 80 Respiratory 19 25 H 16 Rate Blood Pressure 113/68 125/101 125/101 O2 Sat by Pulse 97 94 95 Oximetry 09/15/18 09/15/18 09/15/18 03:30 03:40 03:48 Temperature 98.4 F Pulse Rate 73 69 Respiratory 25 H 12 Rate Blood Pressure 111/75 111/75 O2 Sat by Pulse 98 98 Oximetry 01/26/19 01/26/19 01/26/19 03:50 04:00 04:10 Temperature Pulse Rate 68 66 73 Respiratory 12 22 17 Rate Blood Pressure 111/75 113/68 113/68 O2 Sat by Pulse 94 100 99 Oximetry 09/15/18 09/15/18 09/15/18 04:20 04:30 04:40 Temperature Pulse Rate 68 69 68 Respiratory 24 22 19 Rate Blood Pressure 113/68 128/57 128/57 O2 Sat by Pulse 97 100 99 Oximetry 09/15/18 09/15/18 09/15/18 04:50 05:00 05:10 Temperature Pulse Rate 67 68 67 Respiratory 18 20 19 Rate Blood Pressure 128/57 121/75 121/75 O2 Sat by Pulse 99 100 100 Oximetry 09/15/18 09/15/18 09/15/18 05:20 05:30 05:40 Temperature Pulse Rate 74 Respiratory 21 Rate Blood Pressure 121/75 117/63 117/63 O2 Sat by Pulse 100 99 100 Oximetry 09/15/18 09/15/18 09/15/18 05:50 06:00 06:10 Temperature Pulse Rate 71 72 68 Respiratory 23 30 H 25 H Rate Blood Pressure 117/63 122/72 117/63 O2 Sat by Pulse 100 100 100 Oximetry 09/15/18 09/15/18 09/15/18 06:20 06:30 06:40 Temperature Pulse Rate 67 69 66 Respiratory 21 22 21 Rate Blood Pressure 117/63 119/62 119/62 O2 Sat by Pulse 100 100 99 Oximetry 09/15/18 09/15/18 09/15/18 06:50 07:00 08:00 Temperature Pulse Rate 65 69 63 Respiratory 19 17 19 Rate Blood Pressure 119/62 115/72 113/71 O2 Sat by Pulse 100 100 100 Oximetry 09/15/18 09/15/18 09/15/18 09:00 10:00 11:00 Temperature Pulse Rate 72 71 81 Respiratory 25 H 24 22 Rate Blood Pressure 121/82 120/81 123/87 O2 Sat by Pulse 100 99 100 Oximetry 09/15/18 11:25 Temperature 98.6 F Pulse Rate Respiratory Rate Blood Pressure O2 Sat by Pulse Oximetry CBC and BMP: 09/15/18 04:07 09/15/18 04:07 ABG, PT/INR, D-dimer: ABG POC ABG pH 7.356 (7.35-7.45) 09/14/18 12:39 POC ABG pCO2 30.6 (35-45) L 09/14/18 12:39 POC ABG pO2 41 (80-105) L 09/14/18 12:39 POC ABG HCO3 17.1 09/14/18 12:39 POC ABG Total CO2 18 09/14/18 12:39 POC ABG O2 Sat 75 09/14/18 12:39 PT/INR, D-dimer PT 19.3 Sec. (12.2-14.9) H 09/14/18 03:14 INR 1.58 (0.87-1.13) H 09/14/18 03:14 Abnormal lab findings: Abnormal Labs 09/14/18 09/14/18 09/14/18 02:42 02:42 03:14 WBC 13.8 H RBC 1.27 L Hgb 2.7 L* Hct 10.4 L* MCH 21 L MCHC 26 L RDW 31.8 H Plt Count 477 H Seg Neuts % (Manual) 89.0 H Lymphocytes % (Manual) 7.0 L Nucleated RBC % 3.0 H Seg Neutrophils # Man 12.3 H Lymphocytes # (Manual) 1.0 L PT INR POC ABG pCO2 POC ABG pO2 Chloride Carbon Dioxide 8 L* Creatinine 2.2 H Glucose Lactic Acid Calcium Phosphorus AST 42 H Albumin Lipase 74 H Salicylates Acetaminophen Crossmatch See Detail 09/14/18 09/14/18 09/14/18 03:14 03:14 03:14 WBC 13.6 H RBC 1.28 L Hgb 2.7 L* Hct 10.4 L* MCH 21 L MCHC 26 L RDW 33.7 H Plt Count 474 H Seg Neuts % (Manual) 85.0 H Lymphocytes % (Manual) 7.0 L Nucleated RBC % 2.0 H Seg Neutrophils # Man 11.6 H Lymphocytes # (Manual) 1.0 L PT 19.3 H INR 1.58 H POC ABG pCO2 POC ABG pO2 Chloride 97.4 L Carbon Dioxide 8 L* Creatinine 1.8 H Glucose Lactic Acid Calcium Phosphorus AST 42 H Albumin Lipase Salicylates Acetaminophen Crossmatch 09/14/18 09/14/18 09/14/18 03:14 04:50 04:50 WBC RBC Hgb Hct MCH MCHC RDW Plt Count Seg Neuts % (Manual) Lymphocytes % (Manual) Nucleated RBC % Seg Neutrophils # Man Lymphocytes # (Manual) PT INR POC ABG pCO2 POC ABG pO2 Chloride Carbon Dioxide Creatinine Glucose Lactic Acid 17.30 H* Calcium Phosphorus AST Albumin Lipase Salicylates < 0.3 L Acetaminophen < 5.0 L Crossmatch 09/14/18 09/14/18 09/14/18 04:50 09:20 12:39 WBC RBC Hgb 4.8 L* Hct 15.1 L* MCH MCHC RDW Plt Count Seg Neuts % (Manual) Lymphocytes % (Manual) Nucleated RBC % Seg Neutrophils # Man Lymphocytes # (Manual) PT INR POC ABG pCO2 30.6 L POC ABG pO2 41 L Chloride Carbon Dioxide Creatinine Glucose Lactic Acid 15.30 H* Calcium Phosphorus AST Albumin Lipase Salicylates Acetaminophen Crossmatch 09/14/18 09/14/18 09/14/18 20:21 20:21 20:21 WBC 12.4 H RBC 2.91 L Hgb 7.5 L Hct 23.8 L D MCH 26 L MCHC RDW 23.6 H Plt Count Seg Neuts % (Manual) 89.0 H Lymphocytes % (Manual) 7.0 L Nucleated RBC % Seg Neutrophils # Man 11.0 H Lymphocytes # (Manual) 0.9 L PT INR POC ABG pCO2 POC ABG pO2 Chloride 109.3 H Carbon Dioxide 20 L D Creatinine 1.4 H Glucose 107 H Lactic Acid 2.70 H* Calcium 7.9 L Phosphorus AST Albumin Lipase Salicylates Acetaminophen Crossmatch 09/14/18 09/15/18 09/15/18 22:49 00:14 04:07 WBC 12.3 H RBC 3.06 L Hgb 7.5 L 8.1 L Hct 23.7 L 25.0 L MCH 26 L MCHC RDW 23.8 H Plt Count Seg Neuts % (Manual) 85.0 H Lymphocytes % (Manual) 9.0 L Nucleated RBC % 5.0 H Seg Neutrophils # Man 10.5 H Lymphocytes # (Manual) 1.1 L PT INR POC ABG pCO2 POC ABG pO2 Chloride 115.3 H Carbon Dioxide 20 L Creatinine Glucose Lactic Acid Calcium 7.8 L Phosphorus AST Albumin Lipase Salicylates Acetaminophen Crossmatch 09/15/18 04:07 WBC RBC Hgb Hct MCH MCHC RDW Plt Count Seg Neuts % (Manual) Lymphocytes % (Manual) Nucleated RBC % Seg Neutrophils # Man Lymphocytes # (Manual) PT INR POC ABG pCO2 POC ABG pO2 Chloride 117.4 H Carbon Dioxide 21 L Creatinine Glucose Lactic Acid Calcium 7.8 L Phosphorus 1.80 L AST 64 H Albumin 3.4 L Lipase Salicylates Acetaminophen Crossmatch
--- NOTE | 2018-09-15 15:46 | Event Note ---
Date: 09/15/18 [id number]
[2018-09-15] MEDS: ZOSYN/NS 4.5GM/100ML 4.5 GM/100 ML VIAL IV SCH ×2 (17:07→22:17)
[2018-09-15 17:22] LABS: Iron 12 ug/dL (37-170); Total Iron Binding Capacity 341 mcg/dL (250-450)
[2018-09-15] MEDS ORDERED: FERRLECIT 125 MG in NACL 0.9% 100 ML IV ONE (19:00)
--- NOTE | 2018-09-16 01:35 | Consultation ---
REFERRED BY: Araceli Parish MD REASON FOR CONSULTATION: Severe anemia. HISTORY OF PRESENT ILLNESS: I saw the patient, a 43-year-old female in the medical floor. The patient has history of menorrhagia with heavy cycles for the last few months. She came to the hospital because of nausea, vomiting. She was also feeling weak. No history of fever. During this admission, hemoglobin was found to be 2.7 and radiology showed a 25 cm x 15 cm fibroid uterus. I have been asked to evaluate the patient for anemia. The patient has been given blood transfusion. At this time, the patient says she is feeling better. The patient's mother was also present during the discussion. At this time, no headache, no visual disturbances, no ear discharge, no chest pain, no palpitations, and no vomiting, but history of vomiting present. Has a history of heavy cycles. No hematemesis, no hematochezia, no hematuria. PAST MEDICAL HISTORY: As above. SURGICAL HISTORY: Tonsil surgery. SOCIAL HISTORY: Lives with family members. No history of tobacco or alcohol usage. FAMILY HISTORY: Hypertension. ALLERGIES: None. HOME MEDICATIONS: Reviewed. PHYSICAL EXAMINATION: VITAL SIGNS: Temperature 98, pulse 81, respiration 26, BP 145/92. HEENT: Pallor present. No icterus. NECK: No neck lymph nodes. HEART: S1, S2. LUNGS: Clear to auscultation. ABDOMEN: Soft. Pelvic was palpable. NEUROLOGIC: Alert, awake, follows commands. EXTREMITIES: No calf tenderness. LABORATORY DATA: White cells 12, hemoglobin 8, MCV 82, platelet is 310. Potassium 3.8, creatinine 1.1, calcium 7.8, B12 of 1076, folate 11, serum iron low at 12, ferritin 20. At admission, hemoglobin was 2.7. ASSESSMENT: 1. Severe anemia, likely secondary to menorrhagia. The patient received blood transfusion. 2. Low iron. We will look into giving iron infusion. 3. BONE GRINDER evaluation will help. 4. History of menorrhagia. 5. Uterine fibroids. 6. Renal impairment history. 7. History of lactic acidosis. 8. History of elevated lipase. I will follow the patient during inpatient stay and then in the clinic setting. JOB# [id number] NM/WOO REYNOLDSD
[2018-09-16 05:15] LABS: Hematocrit 23.6 % (30.3-42.9); Hemoglobin 7.5 gm/dl (10.1-14.3); Mean Corpuscular HGB Conc 32 % (30-34); Mean Corpuscular Volume 82 fl (79-97); Platelet Count 286 K/mm3 (140-440); Red Blood Count 2.89 M/mm3 (3.65-5.03)
[2018-09-16 05:21] LABS: Red Cell Distribution Width 24.2 % (13.2-15.2)
[2018-09-16 05:36] LABS: BUN/Creatinine Ratio 10; Blood Urea Nitrogen 9 mg/dL (7-17); Calcium 7.4 mg/dL (8.4-10.2); Hemolysis Index 1
[2018-09-16] MEDS: ZOSYN/NS 4.5GM/100ML 4.5 GM/100 ML VIAL IV SCH ×3 (06:59→23:12)
[2018-09-16 08:16] LABS: Band Neutrophils # (Manual) 0.1 K/mm3; Basophils % (Manual) 0 % (0.0-1.8); Eosinophils % (Manual) 0 % (0.0-4.3); Total Cells Counted 100
[2018-09-16 08:17] LABS: Hypochromasia Few; Target Cells Few
[2018-09-16 08:18] LABS: Large Platelets Few; Platelet Estimate Consistent w Auto
[2018-09-16] MEDS: VANCOMYCIN/NS 1 GM/250 ML 1 GM/250 ML BAG IV SCH (11:09)
[2018-09-16] MEDS: PROTONIX PO SCH (11:10)
[2018-09-16] MEDS: SODIUM BICARBONATE 50 MEQ in NACL 0.9% 1000 ML 1,000 ML IV SCH (15:31)
--- NOTE | 2018-09-16 17:43 | Progress Note ---
Assessment and Plan Assessment and plan: --Hypo phosphatemia : Corrected --Severe anemia; secondary to menorrhagia due to fibroid uterus s/p 4 units of PRBC, hemoglobin improved from 4.8-8.1-7.5 today Patient has no active bleeding today --Acute versus acute on chronic blood loss anemia; Status post 4 unit PRBC transfusion, improved --Menorrhagia; secondary to fibroid uterus APPLIED PSYCHOLOGY PROFESSOR evaluation inpatient versus outpatient --History of fibroid uterus; no active bleeding, Out pt APPLIED PSYCHOLOGY PROFESSOR evaluation --Acute kidney injury; vasomotor nephropathy, Resolved, gentle hydration and closely monitor renal function --Lactic acidosis; probably secondary to metabolic acidosis Resolved --Severe metabolic acidosis; IV hydration, significant improvement --Possible sepsis; empiric antibiotics Vanco and Zosyn Blood cultures, urine cultures, negative to date --Mild acute pancreatitis; mild elevation of lipase Comes improved --DVT prophylaxis; SCDs No pharmacological anticoagulation in view of severe anemia Possible discharge tomorrow if stable Plan of care is reviewed with the patient, her mother at the bedside as well as her nurse Patient is stable to be transferred out of ICU to medical floor History Interval history: Patient seen and examined medical records reviewed Patient feels slightly better Hematology oncology evaluated the patient Recommended and patient received iron infusion No new events reported by the nursing Vital signs reviewed Hospitalist Physical - Constitutional Vitals: Temp Pulse Resp BP Pulse Ox 98.7 F 81 19 123/84 98 09/16/18 11:36 09/16/18 11:36 09/16/18 11:36 09/16/18 11:36 09/16/18 11:36 General appearance: Present: no acute distress, well-nourished, other (alert awake responding appropriately) - EENT Eyes: Present: PERRL, EOM intact - Neck Neck: Present: supple, normal ROM - Respiratory Respiratory effort: normal Respiratory: bilateral: diminished, negative: rales, rhonchi, wheezing - Cardiovascular Rhythm: regular Heart Sounds: Present: S1 & S2 - Extremities Extremities: no ischemia, pulses intact - Abdominal General gastrointestinal: soft, non-tender, non-distended, normal bowel sounds - Integumentary Integumentary: Present: clear, warm - Psychiatric Psychiatric: appropriate mood/affect, cooperative - Neurologic Neurologic: CNII-XII intact, moves all extremities Results - Labs CBC & Chem 7: 09/16/18 04:30 09/16/18 04:30 Labs: Laboratory Last Values WBC 12.5 K/mm3 (4.5-11.0) H 09/16/18 04:30 RBC 2.89 M/mm3 (3.65-5.03) L 09/16/18 04:30 Hgb 7.5 gm/dl (10.1-14.3) L 09/16/18 04:30 Hct 23.6 % (30.3-42.9) L 09/16/18 04:30 MCV 82 fl (79-97) 09/16/18 04:30 MCH 26 pg (28-32) L 09/16/18 04:30 MCHC 32 % (30-34) 09/16/18 04:30 RDW 24.2 % (13.2-15.2) H 09/16/18 04:30 Plt Count 286 K/mm3 (140-440) 09/16/18 04:30 Lymph % (Auto) Hostess 09/14/18 03:14 [place] % (Auto) Hostess 09/14/18 03:14 Eos % (Auto) Hostess 09/14/18 03:14 Baso % (Auto) Hostess 09/14/18 03:14 Lymph # Hostess 09/14/18 03:14 [place] # Hostess 09/14/18 03:14 Eos # Hostess 09/14/18 03:14 Baso # Hostess 09/14/18 03:14 Add Manual Diff Complete 09/16/18 04:30 Total Counted 100 09/16/18 04:30 Seg Neutrophils % Hostess 09/14/18 03:14 Seg Neuts % (Manual) 93.0 % (40.0-70.0) H 09/16/18 04:30 Band Neutrophils % 1.0 % 09/16/18 04:30 Lymphocytes % (Manual) 5.0 % (13.4-35.0) L 09/16/18 04:30 Reactive Lymphs % (Man) 0 % 09/16/18 04:30 Monocytes % (Manual) 1.0 % (0.0-7.3) 09/16/18 04:30 Eosinophils % (Manual) 0 % (0.0-4.3) 09/16/18 04:30 Basophils % (Manual) 0 % (0.0-1.8) 09/16/18 04:30 Metamyelocytes % 0 % 09/16/18 04:30 Myelocytes % 0 % 09/16/18 04:30 Promyelocytes % 0 % 09/16/18 04:30 Blast Cells % 0 % 09/16/18 04:30 Nucleated RBC % Not Reportable 09/16/18 04:30 Seg Neutrophils # Hostess 09/14/18 03:14 Seg Neutrophils # Man 11.6 K/mm3 (1.8-7.7) H 09/16/18 04:30 Band Neutrophils # 0.1 K/mm3 09/16/18 04:30 Lymphocytes # (Manual) 0.6 K/mm3 (1.2-5.4) L 09/16/18 04:30 Abs React Lymphs (Man) 0.0 K/mm3 09/16/18 04:30 Monocytes # (Manual) 0.1 K/mm3 (0.0-0.8) 09/16/18 04:30 Eosinophils # (Manual) 0.0 K/mm3 (0.0-0.4) 09/16/18 04:30 Basophils # (Manual) 0.0 K/mm3 (0.0-0.1) 09/16/18 04:30 Metamyelocytes # 0.0 K/mm3 09/16/18 04:30 Myelocytes # 0.0 K/mm3 09/16/18 04:30 Promyelocytes # 0.0 K/mm3 09/16/18 04:30 Blast Cells # 0.0 K/mm3 09/16/18 04:30 WBC Morphology Not Reportable 09/16/18 04:30 Hypersegmented Neuts Not Reportable 09/16/18 04:30 Hyposegmented Neuts Not Reportable 09/16/18 04:30 Hypogranular Neuts Not Reportable 09/16/18 04:30 Smudge Cells Not Reportable 09/16/18 04:30 Toxic Granulation Not Reportable 09/16/18 04:30 Toxic Vacuolation Not Reportable 09/16/18 04:30 Dohle Bodies Not Reportable 09/16/18 04:30 Pelger-Huet Anomaly Not Reportable 09/16/18 04:30 Mendel Rods Not Reportable 09/16/18 04:30 Platelet Estimate Consistent w auto 09/16/18 04:30 Clumped Platelets Not Reportable 09/16/18 04:30 Plt Clumps, EDTA Not Reportable 09/16/18 04:30 Large Platelets Few 09/16/18 04:30 Giant Platelets Not Reportable 09/16/18 04:30 Platelet Satelliting Not Reportable 09/16/18 04:30 Plt Morphology Comment Not Reportable 09/16/18 04:30 RBC Morphology Not Reportable 09/16/18 04:30 Dimorphic RBCs Not Reportable 09/16/18 04:30 Polychromasia Not Reportable 09/16/18 04:30 Hypochromasia Few 09/16/18 04:30 Poikilocytosis Not Reportable 09/16/18 04:30 Anisocytosis Not Reportable 09/16/18 04:30 Microcytosis Not Reportable 09/16/18 04:30 Macrocytosis Not Reportable 09/16/18 04:30 Spherocytes Not Reportable 09/16/18 04:30 Pappenheimer Bodies Not Reportable 09/16/18 04:30 Sickle Cells Not Reportable 09/16/18 04:30 Target Cells Few 09/16/18 04:30 Tear Drop Cells Not Reportable 09/16/18 04:30 Ovalocytes Not Reportable 09/16/18 04:30 Helmet Cells Not Reportable 09/16/18 04:30 Monique-[place] Bodies Not Reportable 09/16/18 04:30 Wisner Rings Not Reportable 09/16/18 04:30 Vest Cells Not Reportable 09/16/18 04:30 Bite Cells Not Reportable 09/16/18 04:30 Crenated Cell Not Reportable 09/16/18 04:30 Elliptocytes Not Reportable 09/16/18 04:30 Acanthocytes (Spur) Not Reportable 09/16/18 04:30 Rouleaux Not Reportable 09/16/18 04:30 Hemoglobin C Crystals Not Reportable 09/16/18 04:30 Schistocytes Not Reportable 09/16/18 04:30 Malaria parasites Not Reportable 09/16/18 04:30 Macho Bodies Not Reportable 09/16/18 04:30 Hem Pathologist Commnt No 09/16/18 04:30 PT 19.3 Sec. (12.2-14.9) H 09/14/18 03:14 INR 1.58 (0.87-1.13) H 09/14/18 03:14 APTT 31.1 Sec. (24.2-36.6) 09/14/18 03:14 POC ABG pH 7.356 (7.35-7.45) 09/14/18 12:39 POC ABG pCO2 30.6 (35-45) L 09/14/18 12:39 POC ABG pO2 41 (80-105) L 09/14/18 12:39 POC ABG HCO3 17.1 09/14/18 12:39 POC ABG Total CO2 18 09/14/18 12:39 POC ABG O2 Sat 75 09/14/18 12:39 POC ABG Base Excess -8 09/14/18 12:39 FiO2 28 % 09/14/18 12:39 Sodium 141 mmol/L (137-145) 09/16/18 04:30 Potassium 3.6 mmol/L (3.6-5.0) 09/16/18 04:30 Chloride 109.5 mmol/L (98-107) H 09/16/18 04:30 Carbon Dioxide 22 mmol/L (22-30) 09/16/18 04:30 Anion Gap 13 mmol/L 09/16/18 04:30 BUN 9 mg/dL (7-17) 09/16/18 04:30 Creatinine 0.9 mg/dL (0.7-1.2) 09/16/18 04:30 Estimated GFR > 60 ml/min 09/16/18 04:30 BUN/Creatinine Ratio 10 % 09/16/18 04:30 Glucose 78 mg/dL (65-100) 09/16/18 04:30 Osmolality 308 Mosm/kg 09/14/18 04:50 Lactic Acid 1.90 mmol/L (0.7-2.0) 09/14/18 22:49 Calcium 7.4 mg/dL (8.4-10.2) L 09/16/18 04:30 Phosphorus 2.80 mg/dL (2.5-4.5) D 09/16/18 04:30 Magnesium 1.70 mg/dL (1.7-2.3) 09/16/18 04:30 Iron 12 ug/dL (37-170) L 09/15/18 16:42 TIBC 341 mcg/dL (250-450) 09/15/18 16:42 Ferritin 20.0 ng/mL (13.0-400.0) 09/15/18 16:48 Total Bilirubin 0.80 mg/dL (0.1-1.2) 09/15/18 04:07 Direct Bilirubin < 0.2 mg/dL (0-0.2) 09/14/18 02:42 AST 64 units/L (5-40) H 09/15/18 04:07 ALT 48 units/L (7-56) 09/15/18 04:07 Alkaline Phosphatase 60 units/L (35-129) 09/15/18 04:07 C-Reactive Protein 1.20 mg/dL (0.00-1.30) 09/14/18 04:50 Total Protein 6.6 g/dL (6.3-8.2) 09/15/18 04:07 Albumin 3.4 g/dL (3.9-5) L 09/15/18 04:07 Albumin/Globulin Ratio 1.1 % 09/15/18 04:07 Lipase 74 units/L (13-60) H 09/14/18 02:42 Vitamin B12 1076 pg/mL (211-911) H 09/15/18 16:49 Folate 11.58 ng/mL (7.3-26.0) 09/15/18 16:42 HCG, Quant < 2 mIU/mL (0-4) 09/14/18 02:42 Urine Color Yellow (Yellow) 09/14/18 02:25 Urine Turbidity Slightly-cloudy (Clear) 09/14/18 02:25 Urine pH 5.0 (5.0-7.0) 09/14/18 02:25 Ur Specific Somis 1.008 (1.003-1.030) 09/14/18 02:25 Urine Protein 30 mg/dl mg/dL (Negative) 09/14/18 02:25 Urine Glucose (UA) Neg mg/dL (Negative) 09/14/18 02:25 Urine Ketones Tr mg/dL (Negative) 09/14/18 02:25 Urine Blood Sm (Negative) 09/14/18 02:25 Urine Nitrite Neg (Negative) 09/14/18 02:25 Urine Bilirubin Neg (Negative) 09/14/18 02:25 Urine Urobilinogen < 2.0 mg/dL (<2.0) 09/14/18 02:25 Ur Leukocyte Esterase Neg (Negative) 09/14/18 02:25 Urine WBC (Auto) 1.0 /HPF (0.0-6.0) 09/14/18 02:25 Urine RBC (Auto) 1.0 /HPF (0.0-6.0) 09/14/18 02:25 U Epithel Cells (Auto) 3.0 /HPF (0-13.0) 09/14/18 02:25 Amorphous Crystals 2+ 09/14/18 02:25 Hyaline Casts 12 /LPF 09/14/18 02:25 Urine Mucus Few /HPF 09/14/18 02:25 Salicylates < 0.3 mg/dL (2.8-20.0) L 09/14/18 04:50 Urine Opiates Screen Presumptive negative 09/14/18 03:17 Urine Methadone Screen Presumptive negative 09/14/18 03:17 Acetaminophen < 5.0 ug/mL (10.0-30.0) L 09/14/18 04:50 Ur Barbiturates Screen Presumptive negative 09/14/18 03:17 Ur Phencyclidine Scrn Presumptive negative 09/14/18 03:17 Ur Amphetamines Screen Presumptive negative 09/14/18 03:17 U Benzodiazepines Scrn Presumptive negative 09/14/18 03:17 Urine Cocaine Screen Presumptive negative 09/14/18 03:17 U Marijuana (THC) Screen Presumptive negative 09/14/18 03:17 Drugs of Abuse Note Disclamer 09/14/18 03:17 Plasma/Serum Alcohol < 0.01 % (0-0.07) 09/14/18 04:50 Blood Type B POSITIVE 09/14/18 03:14 Antibody Screen Negative 09/14/18 03:14 Crossmatch See Detail 09/14/18 03:14
--- NOTE | 2018-09-16 21:58 | Hem/Onc Progress Note ---
Assessment and Plan 1. Severe anemia, likely secondary to menorrhagia. The patient received blood transfusion. 2. Low iron. iron infusion. 3. TOBACCO CLASSER evaluation will help. 4. History of menorrhagia. 5. Uterine fibroids. 6. Renal impairment history. 7. History of lactic acidosis. 8. History of elevated lipase. I will follow the patient during inpatient stay and then in the clinic setting. s/p iv iron - Patient Problems (1) Severe anemia Current Visit: Yes Status: Acute Subjective Date of service: 09/16/18 Principal diagnosis: anemia Objective - Constitutional Vitals: Last Vital Signs Temp 98.8 F 09/16/18 17:13 Pulse 82 09/16/18 17:13 Resp 18 09/16/18 17:13 BP 138/89 09/16/18 17:13 Pulse Ox 100 09/16/18 17:13 Pain Intensity (0-10): denies any pain General appearance: no acute distress Performance status: 3-limited selfcare - EENT ENT: edentulous (partially) - Respiratory Respiratory effort: Positive: normal Respiratory: bilateral: CTA - Cardiovascular Heart Sounds: Present: S1 & S2 Extremities: No edema - Gastrointestinal General gastrointestinal: Present: soft, other (pelvic mass) Rectal Exam: deferred - Genitourinary Female genitourinary: Present: deferred - Integumentary Integumentary: warm - Neurologic Neurologic: moves all extremities - Labs Lab Results: Laboratory Results - last 24 hr 09/16/18 09/16/18 04:30 04:30 WBC 12.5 H RBC 2.89 L Hgb 7.5 L Hct 23.6 L MCV 82 MCH 26 L MCHC 32 RDW 24.2 H Plt Count 286 Add Manual Diff Complete Total Counted 100 Seg Neuts % (Manual) 93.0 H Band Neutrophils % 1.0 Lymphocytes % (Manual) 5.0 L Reactive Lymphs % (Man) 0 Monocytes % (Manual) 1.0 Eosinophils % (Manual) 0 Basophils % (Manual) 0 Metamyelocytes % 0 Myelocytes % 0 Promyelocytes % 0 Blast Cells % 0 Nucleated RBC % Not Reportable Seg Neutrophils # Man 11.6 H Band Neutrophils # 0.1 Lymphocytes # (Manual) 0.6 L Abs React Lymphs (Man) 0.0 Monocytes # (Manual) 0.1 Eosinophils # (Manual) 0.0 Basophils # (Manual) 0.0 Metamyelocytes # 0.0 Myelocytes # 0.0 Promyelocytes # 0.0 Blast Cells # 0.0 WBC Morphology Not Reportable Hypersegmented Neuts Not Reportable Hyposegmented Neuts Not Reportable Hypogranular Neuts Not Reportable Smudge Cells Not Reportable Toxic Granulation Not Reportable Toxic Vacuolation Not Reportable Dohle Bodies Not Reportable Pelger-Huet Anomaly Not Reportable Mendel Rods Not Reportable Platelet Estimate Consistent w auto Clumped Platelets Not Reportable Plt Clumps, EDTA Not Reportable Large Platelets Few Giant Platelets Not Reportable Platelet Satelliting Not Reportable Plt Morphology Comment Not Reportable RBC Morphology Not Reportable Dimorphic RBCs Not Reportable Polychromasia Not Reportable Hypochromasia Few Poikilocytosis Not Reportable Anisocytosis Not Reportable Microcytosis Not Reportable Macrocytosis Not Reportable Spherocytes Not Reportable Pappenheimer Bodies Not Reportable Sickle Cells Not Reportable Target Cells Few Tear Drop Cells Not Reportable Ovalocytes Not Reportable Helmet Cells Not Reportable Mon[place] Bodies Not Reportable [place] Rings Not Reportable Carla Cells Not Reportable Bite Cells Not Reportable Crenated Cell Not Reportable Elliptocytes Not Reportable Acanthocytes (Spur) Not Reportable Rouleaux Not Reportable Hemoglobin C Crystals Not Reportable Schistocytes Not Reportable Malaria parasites Not Reportable Macho Bodies Not Reportable Hem Pathologist Commnt No Sodium 141 Potassium 3.6 Chloride 109.5 H Carbon Dioxide 22 Anion Gap 13 BUN 9 Creatinine 0.9 Estimated GFR > 60 BUN/Creatinine Ratio 10 Glucose 78 Calcium 7.4 L Phosphorus 2.80 D Magnesium 1.70 Medications & Allergies - Medications Allergies/Adverse Reactions: Allergies No Known Allergies Allergy (Unverified 09/14/18 02:35) Home Medications: Home Medications Medication Instructions Recorded Confirmed Last Taken Type RX: Ferrous Sulfate [Feosol 325 MG 325 mg PO BID #60 tablet 09/17/18 Unknown Rx tab] Active Medications: Generic Name Dose Route Start Last Admin Trade Name Freq PRN Reason Stop Dose Admin Sodium Bicarbonate 50 meq/ 1,050 mls @ 75 mls/hr 09/14/18 10:00 09/16/18 15:31 Sodium Chloride IV 75 mls/hr DIRECT RAHEL Administration Piperacillin Sod/Tazobactam Sod 4.5 gm in 100 mls @ 200 mls/hr 09/15/18 14:00 09/16/18 14:10 Zosyn/Ns 4.5gm/100ml IV 200 mls/hr Q8HR RAHEL Administration Vancomycin HCl 1 gm in 250 mls @ 167.007 mls/hr 09/17/18 00:00 Vancomycin/Ns 1 Gm/250 Ml IV Q12H RAHEL Pantoprazole Sodium 40 mg 09/15/18 10:00 09/16/18 11:10 Protonix PO 40 mg DAILY RAHEL Administration
--- NOTE | 2018-09-16 22:09 | Event Note ---
Date: 09/16/18 H&H holding No bleeding Clinically stable .... will see prn
[2018-09-17] MEDS: VANCOMYCIN/NS 1 GM/250 ML 1 GM/250 ML BAG IV SCH ×2 (00:12→12:00)
[2018-09-17 04:31] LABS: Hematocrit 22.5 % (30.3-42.9); Hemoglobin 7.3 gm/dl (10.1-14.3); Mean Corpuscular HGB Conc 32 % (30-34); Mean Corpuscular Volume 82 fl (79-97); Platelet Count 280 K/mm3 (140-440); Red Blood Count 2.77 M/mm3 (3.65-5.03)
[2018-09-17 04:33] LABS: Red Cell Distribution Width 24.8 % (13.2-15.2)
[2018-09-17 04:41] LABS: BUN/Creatinine Ratio 7; Blood Urea Nitrogen 6 mg/dL (7-17); Calcium 7.8 mg/dL (8.4-10.2); Hemolysis Index 7
[2018-09-17] MEDS: ZOSYN/NS 4.5GM/100ML 4.5 GM/100 ML VIAL IV SCH ×2 (05:24→13:59)
[2018-09-17] MEDS: SODIUM BICARBONATE 50 MEQ in NACL 0.9% 1000 ML 1,000 ML IV SCH (06:07)
[2018-09-17 06:15] LABS: Anisocytosis 1+; Band Neutrophils # (Manual) 0.1 K/mm3; Basophils % (Manual) 0 % (0.0-1.8); Hypochromasia Few; Total Cells Counted 100
[2018-09-17 06:16] LABS: Ovalocytes Few
--- NOTE | 2018-09-17 07:49 | Discharge Summary ---
Providers - Providers Date of Admission: 09/14/18 05:20 Date of discharge: 09/17/18 Attending physician: JUANIS DOUGLAS 09/14/18 05:24 Consult to Physician [CONS] Stat Comment: Answering service notified @ [id number] Consulting Provider: JEAN-PIERRE STARR Physician Instructions: accidently ordered as stat suppose to be routine Reason For Exam: critical care 09/14/18 08:06 Consult to Physician [CONS] Routine Comment: Consulting Provider: MAYO YANG Physician Instructions: Reason For Exam: Severe anemia Hb 2.7/h/o fibroid uterus 09/14/18 11:51 Consult to Physician [CONS] Routine Comment: Consulting Provider: MELISSA ESCALANTE Physician Instructions: Reason For Exam: severe anemia Primary care physician: HENRIQUE CUBA Hospitalization Reason for admission: Nausea and vomiting, generalized weakness/severe anemia Condition: Stable Pertinent studies: Echocardiogram; 45-50% ejection fraction, systolic function lower limits of normal CT head; no acute abnormality CT abdomen and pelvis; uterus is enlarged, multiple fibroids, hold all size of the uterus including fibroids is 25 cm 15 cm 11 cm, several fibroids have partially calcified and necrotic Chest x-ray; cardiomegaly Procedures: s/p 4 units PRBC transfusion Hospital course: 43-year-old female patient with significant past medical history of menorrhagia with heavy periods for the last 2-3 months Was admitted through emergency room with nausea , vomiting and abdominal pain of 2-3 days duration Patient and her mother both are poor historians, report that she had about 3-4 episodes of vomiting, denies hematemesis or melena No history of fever, does not have a physician, not on any medications, has noticed heavy periods passing clots for the last 2-3 months Last period ended on 07 of September, no active bleeding today Initial workup in the emergency room is consistent with severe anemia with hemoglobin of 2.7 CT abdomen and pelvis show fibroid uterus 2515 cm Patient also has severe metabolic and lactic acidosis, acute kidney injury, possible sepsis admitted to ICU Symptomatically managed, received 4 units of PRBC,emperic antibiotics and IV hydration Patient also received bicarb with significant improvement. Blood cultures neg to date,Stabilised and transferred to floor,hematology evaluated and pt received iron transfusion. Patient is comfortable in no new complaints vital signs stable Patient did not have any active bleeding during this admission, advised to see by the HOME DAY CARE PROVIDER For further evaluation of menorrhagia and fibroid uterus upon discharge Patient and mother verbalized understanding Patient is hemodynamically and clinically stable at discharge Discharge diagnosis; --Severe anemia; secondary to menorrhagia due to fibroid uterus s/p 4 units of PRBC, hemoglobin improved from 2.7- 4.8-8.1-7.5-7.3 today Patient has no active bleeding --Menorrhagia; secondary to fibroid uterus HOME DAY CARE PROVIDER evaluation outpatient,as patient has no active bleeding --History of fibroid uterus; no active bleeding, Out pt HOME DAY CARE PROVIDER evaluation --Acute kidney injury; vasomotor nephropathy, Resolved, --Lactic acidosis; probably secondary to metabolic acidosis, resolved --Hypo phosphatemia : Corrected --Severe metabolic acidosis; IV hydration, significant improvement --Possible sepsis; empiric antibiotics Vanco and Zosyn Cultures negative to date -mild malnutrition Disposition: - TO HOME OR SELFCARE Time spent for discharge: 32 min Core Measure Documentation - Palliative Care Palliative Care/ Comfort Measures: Not Applicable - Core Measures Any of the following diagnoses?: none Exam - Constitutional Vitals: Temp Pulse Resp BP Pulse Ox 99.8 F H 72 20 148/86 98 09/17/18 00:09/17/18 00:09/17/18 00:09/17/18 00:09/17/18 00:09 General appearance: Present: no acute distress, well-nourished - EENT Eyes: Present: PERRL, EOM intact - Neck Neck: Present: supple, normal ROM - Respiratory Respiratory effort: normal Respiratory: bilateral: diminished, negative: rales, rhonchi, wheezing - Cardiovascular Rhythm: regular Heart Sounds: Present: S1 & S2 - Extremities Extremities: no ischemia, No edema - Abdominal General gastrointestinal: Present: soft, non-tender, non-distended, normal bowel sounds - Integumentary Integumentary: Present: clear, warm - Musculoskeletal Musculoskeletal: strength equal bilaterally - Psychiatric Psychiatric: appropriate mood/affect, cooperative - Neurologic Neurologic: CNII-XII intact, moves all extremities Plan Activity: advance as tolerated Diet: regular Additional Instructions: Advised to see Private HOME DAY CARE PROVIDER for further evaluation of fibroid uterus and menorrhagia Follow up with: HENRIQUE CUBA DO [Primary Care Provider] - 3-5 Days MAYO YANG MD [Staff Physician] - 7 Days Prescriptions: Ferrous Sulfate [Feosol 325 MG tab] 325 mg PO BID #60 tablet
--- NOTE | 2018-09-17 08:16 | Hem/Onc Progress Note ---
Assessment and Plan 1. Severe anemia, likely secondary to menorrhagia. The patient received blood transfusion. 2. Low iron. iron infusion. 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 4. History of menorrhagia. 5. Uterine fibroids. 6. Renal impairment history. 7. History of lactic acidosis. 8. History of elevated lipase. I will follow the patient during inpatient stay and then in the clinic setting. s/p iv iron oral iron OP follow up - Patient Problems (1) Severe anemia Status: Acute Subjective Date of service: 09/17/18 Principal diagnosis: anemia Interval history: feeling better Objective - Constitutional Vitals: Last Vital Signs Temp 98.9 F 09/17/18 05:56 Pulse 68 09/17/18 05:56 Resp 18 09/17/18 05:56 BP 144/70 09/17/18 05:56 Pulse Ox 99 09/17/18 05:56 Pain Intensity (0-10): denies any pain General appearance: no acute distress Performance status: 3-limited selfcare - EENT ENT: edentulous (partial) Lymph node exam: negative cervical, negative supraclavicular - Respiratory Respiratory effort: Positive: normal Respiratory: bilateral: CTA - Cardiovascular Heart Sounds: Present: S1 & S2 Extremities: No edema - Gastrointestinal General gastrointestinal: Present: soft, other (pelvic mass) Rectal Exam: deferred - Genitourinary Female genitourinary: Present: deferred - Integumentary Integumentary: warm - Musculoskeletal Musculoskeletal: strength equal bilaterally - Neurologic Neurologic: moves all extremities - Labs Lab Results: Laboratory Results - last 24 hr 09/16/18 09/17/18 09/17/18 04:30 03:56 03:56 WBC 10.6 RBC 2.77 L Hgb 7.3 L Hct 22.5 L MCV 82 MCH 26 L MCHC 32 RDW 24.8 H Plt Count 280 Add Manual Diff Complete Complete Total Counted 100 100 Seg Neuts % (Manual) 93.0 H 80.0 H Band Neutrophils % 1.0 1.0 Lymphocytes % (Manual) 5.0 L 14.0 Reactive Lymphs % (Man) 0 0 Monocytes % (Manual) 1.0 3.0 Eosinophils % (Manual) 0 2.0 Basophils % (Manual) 0 0 Metamyelocytes % 0 0 Myelocytes % 0 0 Promyelocytes % 0 0 Blast Cells % 0 0 Nucleated RBC % Not Reportable Not Reportable Seg Neutrophils # Man 11.6 H 8.5 H Band Neutrophils # 0.1 0.1 Lymphocytes # (Manual) 0.6 L 1.5 Abs React Lymphs (Man) 0.0 0.0 Monocytes # (Manual) 0.1 0.3 Eosinophils # (Manual) 0.0 0.2 Basophils # (Manual) 0.0 0.0 Metamyelocytes # 0.0 0.0 Myelocytes # 0.0 0.0 Promyelocytes # 0.0 0.0 Blast Cells # 0.0 0.0 WBC Morphology Not Reportable Not Reportable Hypersegmented Neuts Not Reportable Not Reportable Hyposegmented Neuts Not Reportable Not Reportable Hypogranular Neuts Not Reportable Not Reportable Smudge Cells Not Reportable Not Reportable Toxic Granulation Not Reportable Not Reportable Toxic Vacuolation Not Reportable Not Reportable Dohle Bodies Not Reportable Not Reportable Pelger-Huet Anomaly Not Reportable Not Reportable Mendel Rods Not Reportable Not Reportable Platelet Estimate Consistent w auto Appears normal Clumped Platelets Not Reportable Not Reportable Plt Clumps, EDTA Not Reportable Not Reportable Large Platelets Few Not Reportable Giant Platelets Not Reportable Not Reportable Platelet Satelliting Not Reportable Not Reportable Plt Morphology Comment Not Reportable Not Reportable RBC Morphology Not Reportable Not Reportable Dimorphic RBCs Not Reportable Not Reportable Polychromasia Not Reportable 1+ Hypochromasia Few Few Poikilocytosis Not Reportable Not Reportable Anisocytosis Not Reportable 1+ Microcytosis Not Reportable Not Reportable Macrocytosis Not Reportable Not Reportable Spherocytes Not Reportable Not Reportable Pappenheimer Bodies Not Reportable Not Reportable Sickle Cells Not Reportable Not Reportable Target Cells Few Not Reportable Tear Drop Cells Not Reportable Not Reportable Ovalocytes Not Reportable Few Helmet Cells Not Reportable Not Reportable [place] Bodies Not Reportable Not Reportable [place] Rings Not Reportable Not Reportable Carla Cells Not Reportable Not Reportable Bite Cells Not Reportable Not Reportable Crenated Cell Not Reportable Not Reportable Elliptocytes Not Reportable Rare Acanthocytes (Spur) Not Reportable Not Reportable Rouleaux Not Reportable Not Reportable Hemoglobin C Crystals Not Reportable Not Reportable Schistocytes Not Reportable Not Reportable Malaria parasites Not Reportable Not Reportable [place] Bodies Not Reportable Not Reportable Hem Pathologist Commnt No No Sodium 142 Potassium 3.5 L Chloride 110.6 H Carbon Dioxide 23 Anion Gap 12 BUN 6 L Creatinine 0.9 Estimated GFR > 60 BUN/Creatinine Ratio 7 Glucose 78 Calcium 7.8 L Medications & Allergies - Medications Allergies/Adverse Reactions: Allergies No Known Allergies Allergy (Unverified 09/14/18 02:35) Home Medications: Home Medications Medication Instructions Recorded Confirmed Last Taken Type RX: Ferrous Sulfate [Feosol 325 MG 325 mg PO BID #60 tablet 09/17/18 Unknown Rx tab] Active Medications: Generic Name Dose Route Start Last Admin Trade Name Freq PRN Reason Stop Dose Admin Sodium Bicarbonate 50 meq/ 1,050 mls @ 75 mls/hr 09/14/18 10:00 09/17/18 06:07 Sodium Chloride IV 75 mls/hr DIRECT RAHEL Administration Piperacillin Sod/Tazobactam Sod 4.5 gm in 100 mls @ 200 mls/hr 09/15/18 14:00 09/17/18 05:24 Zosyn/Ns 4.5gm/100ml IV 200 mls/hr Q8HR RAHEL Administration Vancomycin HCl 1 gm in 250 mls @ 167.007 mls/hr 09/17/18 00:00 09/17/18 00:12 Vancomycin/Ns 1 Gm/250 Ml IV 167.007 mls/hr Q12H RAHEL Administration Pantoprazole Sodium 40 mg 09/15/18 10:00 09/16/18 11:10 Protonix PO 40 mg DAILY RAHEL Administration
[2018-09-17] MEDS ORDERED: FEOSOL PO SCH (10:00)
[2018-09-17] MEDS: PROTONIX PO SCH (10:20)
[2018-09-17 12:44] VITALS: BP 142/87
--- NOTE | 2018-09-17 14:04 | Progress Note ---
Assessment and Plan - Patient Problems (1) Metabolic acidosis Current Visit: Yes Status: Acute (2) Acute renal failure Current Visit: Yes Status: Acute (3) Severe anemia Current Visit: Yes Status: Acute (4) Menorrhagia Current Visit: Yes Status: Acute Subjective Date of service: 09/17/18 Principal diagnosis: anemia Objective Vital Signs - 12hr 09/17/18 09/17/18 05:56 11:39 Temperature 98.9 F 99.0 F Pulse Rate 68 71 Respiratory 18 16 Rate Blood Pressure 144/70 142/87 O2 Sat by Pulse 99 99 Oximetry CBC and BMP: 09/17/18 03:56 09/17/18 03:56 ABG, PT/INR, D-dimer: ABG POC ABG pH 7.356 (7.35-7.45) 09/14/18 12:39 POC ABG pCO2 30.6 (35-45) L 09/14/18 12:39 POC ABG pO2 41 (80-105) L 09/14/18 12:39 POC ABG HCO3 17.1 09/14/18 12:39 POC ABG Total CO2 18 09/14/18 12:39 POC ABG O2 Sat 75 09/14/18 12:39 PT/INR, D-dimer PT 19.3 Sec. (12.2-14.9) H 09/14/18 03:14 INR 1.58 (0.87-1.13) H 09/14/18 03:14 Abnormal lab findings: Abnormal Labs 09/14/18 09/14/18 09/14/18 02:42 02:42 03:14 WBC 13.8 H RBC 1.27 L Hgb 2.7 L* Hct 10.4 L* MCH 21 L MCHC 26 L RDW 31.8 H Plt Count 477 H Seg Neuts % (Manual) 89.0 H Lymphocytes % (Manual) 7.0 L Nucleated RBC % 3.0 H Seg Neutrophils # Man 12.3 H Lymphocytes # (Manual) 1.0 L PT INR POC ABG pCO2 POC ABG pO2 Potassium Chloride Carbon Dioxide 8 L* BUN Creatinine 2.2 H Glucose Lactic Acid Calcium Phosphorus Iron AST 42 H Albumin Lipase 74 H Vitamin B12 Salicylates Acetaminophen Crossmatch See Detail 09/14/18 09/14/18 09/14/18 03:14 03:14 03:14 WBC 13.6 H RBC 1.28 L Hgb 2.7 L* Hct 10.4 L* MCH 21 L MCHC 26 L RDW 33.7 H Plt Count 474 H Seg Neuts % (Manual) 85.0 H Lymphocytes % (Manual) 7.0 L Nucleated RBC % 2.0 H Seg Neutrophils # Man 11.6 H Lymphocytes # (Manual) 1.0 L PT 19.3 H INR 1.58 H POC ABG pCO2 POC ABG pO2 Potassium Chloride 97.4 L Carbon Dioxide 8 L* BUN Creatinine 1.8 H Glucose Lactic Acid Calcium Phosphorus Iron AST 42 H Albumin Lipase Vitamin B12 Salicylates Acetaminophen Crossmatch 09/14/18 09/14/18 09/14/18 03:14 04:50 04:50 WBC RBC Hgb Hct MCH MCHC RDW Plt Count Seg Neuts % (Manual) Lymphocytes % (Manual) Nucleated RBC % Seg Neutrophils # Man Lymphocytes # (Manual) PT INR POC ABG pCO2 POC ABG pO2 Potassium Chloride Carbon Dioxide BUN Creatinine Glucose Lactic Acid 17.30 H* Calcium Phosphorus Iron AST Albumin Lipase Vitamin B12 Salicylates < 0.3 L Acetaminophen < 5.0 L Crossmatch 09/14/18 09/14/18 09/14/18 04:50 09:20 12:39 WBC RBC Hgb 4.8 L* Hct 15.1 L* MCH MCHC RDW Plt Count Seg Neuts % (Manual) Lymphocytes % (Manual) Nucleated RBC % Seg Neutrophils # Man Lymphocytes # (Manual) PT INR POC ABG pCO2 30.6 L POC ABG pO2 41 L Potassium Chloride Carbon Dioxide BUN Creatinine Glucose Lactic Acid 15.30 H* Calcium Phosphorus Iron AST Albumin Lipase Vitamin B12 Salicylates Acetaminophen Crossmatch 09/14/18 09/14/18 09/14/18 20:21 20:21 20:21 WBC 12.4 H RBC 2.91 L Hgb 7.5 L Hct 23.8 L D MCH 26 L MCHC RDW 23.6 H Plt Count Seg Neuts % (Manual) 89.0 H Lymphocytes % (Manual) 7.0 L Nucleated RBC % Seg Neutrophils # Man 11.0 H Lymphocytes # (Manual) 0.9 L PT INR POC ABG pCO2 POC ABG pO2 Potassium Chloride 109.3 H Carbon Dioxide 20 L D BUN Creatinine 1.4 H Glucose 107 H Lactic Acid 2.70 H* Calcium 7.9 L Phosphorus Iron AST Albumin Lipase Vitamin B12 Salicylates Acetaminophen Crossmatch 09/14/18 09/15/18 09/15/18 22:49 00:14 04:07 WBC 12.3 H RBC 3.06 L Hgb 7.5 L 8.1 L Hct 23.7 L 25.0 L MCH 26 L MCHC RDW 23.8 H Plt Count Seg Neuts % (Manual) 85.0 H Lymphocytes % (Manual) 9.0 L Nucleated RBC % 5.0 H Seg Neutrophils # Man 10.5 H Lymphocytes # (Manual) 1.1 L PT INR POC ABG pCO2 POC ABG pO2 Potassium Chloride 115.3 H Carbon Dioxide 20 L BUN Creatinine Glucose Lactic Acid Calcium 7.8 L Phosphorus Iron AST Albumin Lipase Vitamin B12 Salicylates Acetaminophen Crossmatch 09/15/18 09/15/18 09/15/18 04:07 16:42 16:49 WBC RBC Hgb Hct MCH MCHC RDW Plt Count Seg Neuts % (Manual) Lymphocytes % (Manual) Nucleated RBC % Seg Neutrophils # Man Lymphocytes # (Manual) PT INR POC ABG pCO2 POC ABG pO2 Potassium Chloride 117.4 H Carbon Dioxide 21 L BUN Creatinine Glucose Lactic Acid Calcium 7.8 L Phosphorus 1.80 L Iron 12 L AST 64 H Albumin 3.4 L Lipase Vitamin B12 1076 H Salicylates Acetaminophen Crossmatch 09/16/18 09/16/18 09/17/18 04:30 04:30 03:56 WBC 12.5 H RBC 2.89 L 2.77 L Hgb 7.5 L 7.3 L Hct 23.6 L 22.5 L MCH 26 L 26 L MCHC RDW 24.2 H 24.8 H Plt Count Seg Neuts % (Manual) 93.0 H 80.0 H Lymphocytes % (Manual) 5.0 L Nucleated RBC % Seg Neutrophils # Man 11.6 H 8.5 H Lymphocytes # (Manual) 0.6 L PT INR POC ABG pCO2 POC ABG pO2 Potassium Chloride 109.5 H Carbon Dioxide BUN Creatinine Glucose Lactic Acid Calcium 7.4 L Phosphorus Iron AST Albumin Lipase Vitamin B12 Salicylates Acetaminophen Crossmatch 09/17/18 03:56 WBC RBC Hgb Hct MCH MCHC RDW Plt Count Seg Neuts % (Manual) Lymphocytes % (Manual) Nucleated RBC % Seg Neutrophils # Man Lymphocytes # (Manual) PT INR POC ABG pCO2 POC ABG pO2 Potassium 3.5 L Chloride 110.6 H Carbon Dioxide BUN 6 L Creatinine Glucose Lactic Acid Calcium 7.8 L Phosphorus Iron AST Albumin Lipase Vitamin B12 Salicylates Acetaminophen Crossmatch
== END 2018-09-17 14:30 | disposition home or self-care (01) | DRG 871 ==
LOC: ED 01:53 → CC1 05:20 → 3A 09-15 13:01
PROVIDERS: ADMIT Internal Medicine; ATTEND Internal Medicine
PROC: 30233N1 Transfusion of Nonautologous Red Blood Cells into Peripheral Vein, Percutaneous Approach (ICD-10-PCS; principal; 2018-09-14)
PROC: 30233K1 Transfusion of Nonautologous Frozen Plasma into Peripheral Vein, Percutaneous Approach (ICD-10-PCS; 2018-09-14)
PROC: 4A033R1 Measurement of Arterial Saturation, Peripheral, Percutaneous Approach (ICD-10-PCS; 2018-09-14)
DX: A41.9 Sepsis, unspecified organism (principal); N17.0 Acute kidney failure with tubular necrosis; K85.90 Acute pancreatitis without necrosis or infection, unspecified; E87.2 Acidosis; E44.1 Mild protein-calorie malnutrition; D62 Acute posthemorrhagic anemia; N92.0 Excessive and frequent menstruation with regular cycle; D64.9 Anemia, unspecified; D25.9 Leiomyoma of uterus, unspecified; F70 Mild intellectual disabilities; E83.39 Other disorders of phosphorus metabolism; Z68.24 Body mass index [BMI] 24.0-24.9, adult; Z82.49 Family history of ischemic heart disease and other diseases of the circulatory system
CPT/HCPCS: 36415; 36430; 36600; 70450; 71045; 74176; 80048; 80053; 80076; 80307; 80320; 81001; 82140; 82607; 82728; 82747; 82803; 83550; 83690; 83735; 83930; 84100; 84702; 85007; 85014; 85018; 85025; 85610; 85730; 86140; 86850; 86900; 86901; 86920; 87040; 87086; 93306; G0378; C9113; G0480; J2543; J2916; J3370; J7030; J7040; J7050; P9016; P9017

== ENCOUNTER 2019-11-03 00:41 | Inpatient (IN) | payer SELFPAY ==
[2019-11-03 02:14] LABS: Hemoglobin 2.1 gm/dl (10.1-14.3)
[2019-11-03 02:15] LABS: Hematocrit 6.9 % (30.3-42.9); Mean Corpuscular HGB Conc 31 % (30-34); Mean Corpuscular Volume 70 fl (79-97); Platelet Count 124 K/mm3 (140-440); Red Cell Distribution Width 27.3 % (13.2-15.2)
[2019-11-03] MEDS ORDERED: SODIUM CHLORIDE 0.9% 500 ML 500 ML IV ONE ×2 (02:36→05:41)
[2019-11-03] MEDS ORDERED: SODIUM CHLORIDE 0.9% 1000 ML 1,000 ML IV ONE ×2 (02:37→05:00)
[2019-11-03] MEDS ORDERED: SODIUM CHLORIDE 0.9% 1000 ML 1,000 ML ONE (02:39)
--- NOTE | 2019-11-03 02:42 | Emergency Department Report ---
HPI - General Chief Complaint: Vaginal Bleeding Time Seen by Provider: 11/03/19 02:27 - HPI HPI: Room 7 The patient is a 44-year-old female present with a chief complaint of heavy menses. The patient's mother states the patient has a history of uterine fibroids and heavy menses. The patient states the patient cycle began 10/27/2019, lasted for 3 days and stopped. The mother states the patient was going through approximately 3 pads per day. The mother states the cycle returned today and was again heavy. Mother states the patient stayed in bed all day signaling that she is fatigued. The patient has a history of developmental delay and did not answer my questions. ED Past Medical Hx - Past Medical History Previous Medical History?: Yes Additional medical history: developmental disorder, fibroids - Surgical History Past Surgical History?: Yes Additional Surgical History: tonsillectomy - Family History Family history: no significant - Social History Smoking Status: Never Smoker Substance Use Type: None - Medications Home Medications: Home Medications Medication Instructions Recorded Confirmed Last Taken Type Ferrous Sulfate [Feosol 325 MG tab] 325 mg PO BID #60 tablet 09/17/18 Unknown Rx ED Review of Systems ROS: Stated complaint: GENERAL WEAKNESS Other details as noted in HPI Comment: Unobtainable due to pts medical conditions Physical Exam - Physical Exam Vital Signs: Vital Signs 11/03/19 01:11 Temperature 99.9 F H Pulse Rate 119 H Respiratory 18 Rate Blood Pressure 102/54 O2 Sat by Pulse 99 Oximetry Physical Exam: GENERAL: The patient is well-nourished female lying on stretcher not appearing to be in acute distress HEENT: Normocephalic. Atraumatic. Extraocular motions are intact. Patient has moist mucous membranes. NECK: Supple. Trachea midline CHEST/LUNGS: Clear to auscultation. There is no respiratory distress noted. HEART/CARDIOVASCULAR: Regular. There is tachycardia. There is no gallop rub or murmur. ABDOMEN: Abdomen is soft, nontender. Patient has normal bowel sounds. There is no abdominal distention. SKIN: There is no rash. There is no edema. There is no diaphoresis. NEURO: The patient is awake and alert. The patient is cooperative. The patient has normal speech MUSCULOSKELETAL: There is no evidence of acute injury. ED Course Vital Signs 11/03/19 01:11 Temperature 99.9 F H Pulse Rate 119 H Respiratory 18 Rate Blood Pressure 102/54 O2 Sat by Pulse 99 Oximetry ED Medical Decision Making - Lab Data Result diagrams: 11/03/19 01:33 11/03/19 02:50 Laboratory Tests 11/03/19 11/03/19 11/03/19 01:33 01:33 01:33 WBC 7.2 RBC 1.00 L Hgb 2.1 L* Hct 6.9 L* MCV 70 L MCH 21 L MCHC 31 RDW 27.3 H Plt Count 124 L Lymph % (Auto) Subscription Clerk [place] % (Auto) Subscription Clerk Eos % (Auto) Subscription Clerk Baso % (Auto) Subscription Clerk Lymph # Subscription Clerk [place] # Subscription Clerk Eos # Subscription Clerk Baso # Subscription Clerk Add Manual Diff Complete Total Counted 100 Seg Neutrophils % Subscription Clerk Seg Neuts % (Manual) 86.0 H Band Neutrophils % 0 Lymphocytes % (Manual) 12.0 L Reactive Lymphs % (Man) 0 Monocytes % (Manual) 2.0 Eosinophils % (Manual) 0 Basophils % (Manual) 0 Metamyelocytes % 0 Myelocytes % 0 Promyelocytes % 0 Blast Cells % 0 Nucleated RBC % Not Reportable Seg Neutrophils # Subscription Clerk Seg Neutrophils # Man 6.2 Band Neutrophils # 0.0 Lymphocytes # (Manual) 0.9 L Abs React Lymphs (Man) 0.0 Monocytes # (Manual) 0.1 Eosinophils # (Manual) 0.0 Basophils # (Manual) 0.0 Metamyelocytes # 0.0 Myelocytes # 0.0 Promyelocytes # 0.0 Blast Cells # 0.0 WBC Morphology Not Reportable Hypersegmented Neuts Not Reportable Hyposegmented Neuts Not Reportable Hypogranular Neuts Not Reportable Smudge Cells Not Reportable Toxic Granulation Not Reportable Toxic Vacuolation Not Reportable Dohle Bodies Not Reportable Pelger-Huet Anomaly Not Reportable Mendel Rods Not Reportable Platelet Estimate Not Reportable Clumped Platelets Not Reportable Plt Clumps, EDTA Not Reportable Large Platelets Not Reportable Giant Platelets Not Reportable Platelet Satelliting Not Reportable Plt Morphology Comment Not Reportable RBC Morphology Not Reportable Dimorphic RBCs Not Reportable Polychromasia Rare Hypochromasia 3+ Poikilocytosis Not Reportable Anisocytosis 2+ Microcytosis 1+ Macrocytosis 1+ Spherocytes Not Reportable Pappenheimer Bodies Not Reportable Sickle Cells Not Reportable Target Cells Not Reportable Tear Drop Cells Not Reportable Ovalocytes Few Helmet Cells Not Reportable [place] Bodies Not Reportable [place] Rings Not Reportable Carla Cells Not Reportable Bite Cells Not Reportable Crenated Cell Not Reportable Elliptocytes Rare Acanthocytes (Spur) Not Reportable Rouleaux Not Reportable Hemoglobin C Crystals Not Reportable Schistocytes Not Reportable Malaria parasites Not Reportable [place] Bodies Not Reportable Hem Pathologist Commnt No Sodium Potassium Chloride Carbon Dioxide Anion Gap BUN Creatinine Estimated GFR BUN/Creatinine Ratio Glucose Calcium HCG, Quant < 2 Urine Color Urine Turbidity Urine pH Ur Specific [place] Urine Protein Urine Glucose (UA) Urine Ketones Urine Blood Urine Nitrite Urine Bilirubin Urine Urobilinogen Ur Leukocyte Esterase Urine WBC (Auto) Urine RBC (Auto) U Epithel Cells (Auto) Blood Type B POSITIVE Antibody Screen Crossmatch 11/03/19 11/03/19 11/03/19 02:50 02:55 04:16 WBC RBC Hgb Hct MCV MCH MCHC RDW Plt Count Lymph % (Auto) [place] % (Auto) Eos % (Auto) Baso % (Auto) Lymph # [place] # Eos # Baso # Add Manual Diff Total Counted Seg Neutrophils % Seg Neuts % (Manual) Band Neutrophils % Lymphocytes % (Manual) Reactive Lymphs % (Man) Monocytes % (Manual) Eosinophils % (Manual) Basophils % (Manual) Metamyelocytes % Myelocytes % Promyelocytes % Blast Cells % Nucleated RBC % Seg Neutrophils # Seg Neutrophils # Man Band Neutrophils # Lymphocytes # (Manual) Abs React Lymphs (Man) Monocytes # (Manual) Eosinophils # (Manual) Basophils # (Manual) Metamyelocytes # Myelocytes # Promyelocytes # Blast Cells # WBC Morphology Hypersegmented Neuts Hyposegmented Neuts Hypogranular Neuts Smudge Cells Toxic Granulation Toxic Vacuolation Dohle Bodies Pelger-Huet Anomaly Mendel Rods Platelet Estimate Clumped Platelets Plt Clumps, EDTA Large Platelets Giant Platelets Platelet Satelliting Plt Morphology Comment RBC Morphology Dimorphic RBCs Polychromasia Hypochromasia Poikilocytosis Anisocytosis Microcytosis Macrocytosis Spherocytes Pappenheimer Bodies Sickle Cells Target Cells Tear Drop Cells Ovalocytes Helmet Cells [place] Bodies [place] Rings Carla Cells Bite Cells Crenated Cell Elliptocytes Acanthocytes (Spur) Rouleaux Hemoglobin C Crystals Schistocytes Malaria parasites [place] Bodies Hem Pathologist Commnt Sodium 139 Potassium 4.3 Chloride 101.2 Carbon Dioxide 16 L Anion Gap 26 BUN 13 Creatinine 1.2 Estimated GFR 59 BUN/Creatinine Ratio 11 Glucose 113 H Calcium 8.5 HCG, Quant Urine Color Yellow Urine Turbidity Slightly-cloudy Urine pH 5.0 Ur Specific [place] 1.011 Urine Protein 100 mg/dl Urine Glucose (UA) Neg Urine Ketones Neg Urine Blood Mod Urine Nitrite Neg Urine Bilirubin Neg Urine Urobilinogen < 2.0 Ur Leukocyte Esterase Neg Urine WBC (Auto) 4.0 Urine RBC (Auto) 65.0 U Epithel Cells (Auto) 4.0 Blood Type B POSITIVE Antibody Screen Negative Crossmatch See Detail - Radiology Data Radiology results: report reviewed (Pelvic ultrasound), image reviewed (Pelvic ultrasound) Pelvic ultrasound (read by radiologist)-uterine fibroids - Differential Diagnosis Menorrhagia, symptomatic anemia Critical care attestation.: If time is entered above; I have spent that time in minutes in the direct care of this critically ill patient, excluding procedure time. ED Disposition Clinical Impression: Menorrhagia, Fibroid uterus, Symptomatic anemia Disposition: 09 OP ADMIT IP TO THIS HOSP Is pt being admited?: Yes Does the pt Need Aspirin: No Condition: Fair Referrals: PRIMARY CARE, [Primary Care Provider] - 3-5 Days Time of Disposition: 04:51 (Hospitalist notified (Dr. Verito De Leon))
[2019-11-03 03:01] LABS: Anisocytosis 2+; Basophils % (Manual) 0 % (0.0-1.8); Eosinophils % (Manual) 0 % (0.0-4.3); Macrocytosis 1+; Total Cells Counted 100
[2019-11-03 03:02] LABS: Hypochromasia 3+
[2019-11-03 03:05] LABS: Ovalocytes Few
[2019-11-03 03:44] LABS: Calcium 8.5 mg/dL (8.4-10.2)
--- NOTE | 2019-11-03 04:40 | Ultrasound Report ---
CLINICAL DATA: Menorrhagia TECHNICAL DATA: Ultrasound, pelvic (nonobstetric), real-time with image documentation; transabdominal imaging with Do ppler was performed. FINDINGS: The uterus measures 17.3 x 9.5 x 12.3 cm Multiple uterine fibroids are present largest measuring 7.8 cm. The right and left ovaries cannot be identified. There is no significant quantity of free fluid depen dently within the pelvis. IMPRESSION: Large uterus with multiple uterine fibroids GUIDELINES FOR IMAGING OF OVARIAN--ADNEXAL CYST: WOMEN OF REPRODUCTIVE AGE: 1. Cysts <=3 cm: Normal physiologic findings; at the discretion of the interpreting physician whether or not to describe them in the imaging report; do not need follow-up. 2. Cysts >3 and <=5 cm: Should be described in the imaging report with a statement that they are almo st certainly benign; do not need follow-up. 3. Cysts >5 and <=7 cm: Should be described in the imaging report with a statement that they are almo st certainly benign; yearly follow-up with US recommended. 4. Cysts >7 cm: Since these may be difficult to assess completely with US, further imaging with magne tic resonance (MR) or surgical evaluation should be considered. POSTMENOPAUSAL WOMEN: 1. Cysts <=1 cm: Are clinically inconsequential; at the discretion of the interpreting physician whet her or not to describe them in the imaging report; do not need follow-up. 2. Cysts >1 and <=7 cm: Should be described in the imaging report with statement that they are almost certainly benign; yearly follow-up, at least initially, with US recommended. Some practices may opt to increase the lower size threshold for follow-up from 1 cm to as high as 3 cm. One may opt to fadia nue follow-up annually or to decrease the frequency of follow-up once stability or decrease in size h as been confirmed. Cysts in the larger end of this range should still generally be followed on a regu lar basis. 3. Cysts >7 cm: Since these may be difficult to assess completely with US, further imaging with MR or surgical evaluation should be considered. Signer Name: Juaquin Nayak MD Signed: 11/03/2019 4:36 AM Workstation Name: [id number]
[2019-11-03 04:48] LABS: Bilirubin,Urine NEG (Negative); Blood,Urine MOD (Negative); Color,Urine Yellow (Yellow); Urobilinogen,Urine < 2.0 mg/dL (<2.0)
[2019-11-03] MEDS ORDERED: medroxyPROGESTERone ACETATE 5 MG TAB PO ONE (04:51)
[2019-11-03] MEDS ORDERED: ONDANSETRON 4 MG/2 ML INJ ONE (05:05)
[2019-11-03] MEDS ORDERED: ONDANSETRON 4 MG/2 ML INJ IV ONE (05:15)
[2019-11-03 05:33] LABS: Hematocrit 8.4 % (30.3-42.9); Hemoglobin 2.7 gm/dl (10.1-14.3)
[2019-11-03] MEDS ORDERED: ONDANSETRON 4 MG/2 ML INJ IV PRN (05:43)
--- NOTE | 2019-11-03 05:49 | History and Physical Report ---
History of Present Illness History of present illness: 44-year-old woman with a history of fibroid, menorrhagia, developmental delay comes emergency room with complaints of generalized weakness, fatigue. Mother at bedside states that started her. Last week Monday which continued until . Her. Then started back on Monday, she has heavy cycles. At home she difficulty doing her ADLs. Patient was supposed to follow-up with [facility] outpatient from the last admission, they have not done so. Patient will be admitted for anemia, menorrhagia Review Of Systems: Constitutional: no weight loss, fever, chills Ears, eyes, nose, mouth and throat: no nasal congestion, no nasal discharge, no sinus pressure, blurry vision, diplopia Neck: No neck pain or rigidity. Cardiovascular: No palpitations, chest pain Respiratory: No shortness of breath, cough Gastrointestinal: No hematochezia Genitourinary : no dysuria, frequency Musculoskeletal: no muscle ache , joint pain Integumentary: no rash, no pruritis Neurological: no parathesias, focal weakness Endocrine: no cold or heat intolerance, no polyuria or polydipsia Hematologic/Lymphatic: no easy bruising, no easy bleeding, no gland swelling Allergic/Immunologic: no urticaria, no angioedema. PAST MEDICAL HISTORY: ibroid, menorrhagia, developmental delay PAST SURGICAL HISTORY: Tonsillectomy SOCIAL HISTORY: Denies alcohol, tobacco, drugs FAMILY HISTORY: Hypertension Medications and Allergies Allergies Allergy/AdvReac Type Severity Reaction Status Date / Time No Known Allergies Allergy Unverified 09/14/18 02:35 Home Medications Medication Instructions Recorded Confirmed Last Taken Type Ferrous Sulfate [Feosol 325 MG tab] 325 mg PO BID #60 tablet 09/17/18 Unknown Rx Active Meds: Active Medications Sodium Chloride (Nacl 0.9% 1000 Ml) 1,000 mls @ 999 mls/hr IV BOLUS ONE Stop: 11/03/19 06:00 Last Admin: 11/03/19 05:20 Dose: 999 mls/hr Documented by: Sodium Chloride (Nacl 0.9% 500 Ml) 500 mls @ 0 mls/hr IV ONCE ONE Stop: 11/03/19 05:42 Exam - Physical Exam Narrative exam: Gen. appearance: Patient lying in bed, no apparent distress HEENT: Normocephalic, atraumatic, pupils equally round and reactive to light, extraocular movement intact, and no sclericterus,. No JVD or thyromegaly or nodule,neck supple, no carotid bruit ,mucous membranes moist, no exudate or erythema Heart: S1, S2, regular rate and rhythm Lungs: Clear bilaterally, breathing comfortable Abdomen: Positive bowel sounds, nontender, nondistended, no organomegaly Extremity: no edema, cyanosis, clubbing Skin: No rash, nodules, warm, dry Neuro: speech is fluent, moves extremities, sensory intact - Constitutional Vitals: Temp Pulse Resp BP Pulse Ox 98.2 F 105 H 24 127/111 100 11/03/19 04:35 11/03/19 05:20 11/03/19 05:20 11/03/19 05:20 11/03/19 05:20 Results - Labs CBC & Chem 7: 11/03/19 05:09 11/03/19 02:50 Labs: Abnormal lab results 11/03/19 11/03/19 11/03/19 Range/Units 01:33 02:50 02:55 RBC 1.00 L (3.65-5.03) M/mm3 Hgb 2.1 L* (10.1-14.3) gm/dl Hct 6.9 L* (30.3-42.9) % MCV 70 L (79-97) fl MCH 21 L (28-32) pg RDW 27.3 H (13.2-15.2) % Plt Count 124 L (140-440) K/mm3 Seg Neuts % (Manual) 86.0 H (40.0-70.0) % Lymphocytes % (Manual) 12.0 L (13.4-35.0) % Lymphocytes # (Manual) 0.9 L (1.2-5.4) K/mm3 Carbon Dioxide 16 L (22-30) mmol/L Glucose 113 H (65-100) mg/dL Crossmatch See Detail 11/03/19 Range/Units 05:09 RBC (3.65-5.03) M/mm3 Hgb 2.7 L* (10.1-14.3) gm/dl Hct 8.4 L* (30.3-42.9) % MCV (79-97) fl MCH (28-32) pg RDW (13.2-15.2) % Plt Count (140-440) K/mm3 Seg Neuts % (Manual) (40.0-70.0) % Lymphocytes % (Manual) (13.4-35.0) % Lymphocytes # (Manual) (1.2-5.4) K/mm3 Carbon Dioxide (22-30) mmol/L Glucose (65-100) mg/dL Crossmatch Assessment and Plan Pelvic ultrasound reviewed Assessment Severe anemia secondary to menorrhagia/fibroids Transfuse packed red blood cells, consult C.O.D. CLERK Thrombocytopenia, continue to monitor DVT prophylaxis
--- NOTE | 2019-11-03 09:52 | Event Note ---
Date: 11/03/19 Brief progress note Patient seen and examined This is the second IMS visit of the day Vital signs and lab results reviewed Discussed with patient's mother Patient is hypotensive with map of 2 liters of normal saline bolus Discussed with Dr. Bernal We will transfer patient to ICU Consult placed with Dr. Bernal Patient is typed and crossmatched for 4 units of PRBC Will give additional 500 units of IV normal saline bolus
--- NOTE | 2019-11-03 12:44 | Consultation ---
History of Present Illness Consult date: 11/03/19 Requesting physician: CARLEY AGUILAR Reason for consult: menorrhagia History of present illness: Pt is a 44 year old nulligravida LMP 10/27/19 presents with symptoms of weakness and fatigue for the past week. The history is obtained from the patient's mother as the patient is minimally verbal. She reports that the patient has had heavy periods once a month for the last year but only began to have the present symptoms 1 week ago. She is tired walking from her bed to the bathroom. She has never been to a questioned documents examiner, nor has she ever had a Pap smear. The patient's mother has the information for [facility] which she plans to call once the patient is discharged. Past History Past Medical History: hematologic disorders (severe anemia, thrombocytopenia ) Past Surgical History: no surgical history [employer] History: fibroids Family/Genetic History: heart disease Social history: no significant social history - Obstetrical History : 0 Medications and Allergies Allergies Allergy/AdvReac Type Severity Reaction Status Date / Time No Known Allergies Allergy Unverified 09/14/18 02:35 Home Medications Medication Instructions Recorded Confirmed Last Taken Type Ferrous Sulfate [Feosol 325 MG tab] 325 mg PO BID #60 tablet 09/17/18 Unknown Rx Active Meds: Active Medications Acetaminophen (Tylenol) 650 mg PO Q4H PRN PRN Reason: Pain MILD(1-3)/Fever >100.5/TOBAR Ondansetron HCl (Zofran) 4 mg IV Q8H PRN PRN Reason: Nausea And Vomiting Sodium Chloride (Sodium Chloride Flush Syringe 10 Ml) 10 ml IV BID RAHEL Sodium Chloride (Sodium Chloride Flush Syringe 10 Ml) 10 ml IV PRN PRN PRN Reason: LINE FLUSH Review of Systems All systems: negative - Vital Signs Vital signs: Vital Signs Pulse Resp BP Pulse Ox 118 H 18 102/54 100 11/03/19 01:05 11/03/19 01:05 11/03/19 01:05 11/03/19 01:05 Temp Pulse Resp BP Pulse Ox 98.9 F 77 18 105/70 100 11/03/19 12:20 11/03/19 12:20 11/03/19 12:20 11/03/19 12:20 11/03/19 12:20 - Physical Exam Breasts: Positive: deferred Abdomen: Positive: soft (abdominal mass present ) Uterus: Positive: enlarged Extremities: Positive: normal Results Result Diagrams: 11/03/19 05:09 11/03/19 02:50 Abnormal lab results 11/03/19 11/03/19 11/03/19 Range/Units 01:33 02:50 02:55 RBC 1.00 L (3.65-5.03) M/mm3 Hgb 2.1 L* (10.1-14.3) gm/dl Hct 6.9 L* (30.3-42.9) % MCV 70 L (79-97) fl MCH 21 L (28-32) pg RDW 27.3 H (13.2-15.2) % Plt Count 124 L (140-440) K/mm3 Seg Neuts % (Manual) 86.0 H (40.0-70.0) % Lymphocytes % (Manual) 12.0 L (13.4-35.0) % Lymphocytes # (Manual) 0.9 L (1.2-5.4) K/mm3 Carbon Dioxide 16 L (22-30) mmol/L Glucose 113 H (65-100) mg/dL Crossmatch See Detail 11/03/19 Range/Units 05:09 RBC (3.65-5.03) M/mm3 Hgb 2.7 L* (10.1-14.3) gm/dl Hct 8.4 L* (30.3-42.9) % MCV (79-97) fl MCH (28-32) pg RDW (13.2-15.2) % Plt Count (140-440) K/mm3 Seg Neuts % (Manual) (40.0-70.0) % Lymphocytes % (Manual) (13.4-35.0) % Lymphocytes # (Manual) (1.2-5.4) K/mm3 Carbon Dioxide (22-30) mmol/L Glucose (65-100) mg/dL Crossmatch All other labs normal. Assessment and Plan A: Severe Symptomatic Anemia Menorrhagia Thrombocytopenia Fibroid Uterus Developmental Delay P: Pt has know history of menorrhagia, anemia requiring blood transfusion and ut erine fibroids. Once she has been transfused and stabilized medically, she needs to follow up in the outpatient for endometrial biopsy, discussion of surgical management of her fibroid uterus. Thank you for allowing me to help care for this patient.
[2019-11-03] MEDS ORDERED: SODIUM CHLORIDE 0.9% 500 ML 500 ML ONE (15:41)
[2019-11-03 21:52] LABS: Hematocrit 21.6 % (30.3-42.9); Hemoglobin 7.1 gm/dl (10.1-14.3); Mean Corpuscular HGB Conc 33 % (30-34); Mean Corpuscular Volume 85 fl (79-97); Red Blood Count 2.56 M/mm3 (3.65-5.03)
[2019-11-03 21:55] LABS: Platelet Count 62 K/mm3 (140-440); Red Cell Distribution Width 23.1 % (13.2-15.2)
[2019-11-04 05:37] LABS: Mean Corpuscular HGB Conc 34 % (30-34); Mean Corpuscular Volume 83 fl (79-97); Red Blood Count 2.25 M/mm3 (3.65-5.03)
[2019-11-04 05:38] LABS: Platelet Count 51 K/mm3 (140-440); Red Cell Distribution Width 23.1 % (13.2-15.2)
[2019-11-04 05:40] LABS: Hematocrit 18.6 % (30.3-42.9); Hemoglobin 6.3 gm/dl (10.1-14.3)
[2019-11-04 06:17] LABS: BUN/Creatinine Ratio 13; Blood Urea Nitrogen 12 mg/dL (7-17); Calcium 7.8 mg/dL (8.4-10.2); Hemolysis Index 4
[2019-11-04 06:35] LABS: Basophils % (Manual) 0 % (0.0-1.8); Monocytes % (Manual) 0 % (0.0-7.3); Total Cells Counted 100
[2019-11-04 06:36] LABS: Anisocytosis 1+; Hypochromasia 1+; Target Cells Rare
[2019-11-04 06:37] LABS: Platelet Estimate Consistent w Auto; Schistocytes Rare
[2019-11-04 08:11] LABS: Hemoglobin 6.4 gm/dl (10.1-14.3); Mean Corpuscular HGB Conc 33 % (30-34); Mean Corpuscular Volume 83 fl (79-97); Red Blood Count 2.31 M/mm3 (3.65-5.03)
[2019-11-04] MEDS ORDERED: SODIUM CHLORIDE 0.9% 500 ML 500 ML IV ONE (08:20)
--- NOTE | 2019-11-04 08:42 | Progress Note ---
Assessment and Plan - Patient Problems (1) Fibroid uterus Current Visit: Yes Status: Acute Plan to address problem: Treatment options for the patient's dysfunctional uterine bleeding and uterine fibroids included uterine fibroid embolization and a total abdominal hysterectomy. These options were discussed with the parent. We will follow-up with the parents in the next few hours to solidify treatment plan. Transferred to mother-baby unit (2) Menorrhagia Current Visit: Yes Status: Acute (3) Symptomatic anemia Current Visit: Yes Status: Acute (4) Severe anemia Current Visit: No Status: Acute Subjective - Subjective Date of service: 11/04/19 Interval history: 44y/o G0 with dysfunctional uterine bleeding resulting in severe iron deficiency anemia. The patient was admitted and was transfused packed red blood cells. Pelvic ultrasound was performed that demonstrated elevated dense of an enlarged fibroid uterus with a total uterine length greater than 17 cm. The patient is mentally delayed and nonverbal. The history was obtained from the patient's mother. The parents noted that the patient has been having abnormal bleeding for over a year. Today the patient has had decreased vaginal bleeding. Patient reports: appetite normal, pain well controlled Objective - Vital Signs Latest vital signs: Vital Signs Temp Pulse Pulse Pulse Resp BP Pulse Ox 11/04/19 07:00 65 13 104/58 100 11/04/19 06:30 61 16 115/68 98 11/04/19 06:00 57 L 17 118/75 97 11/04/19 05:30 58 L 13 119/86 100 11/04/19 05:00 58 L 12 107/74 97 11/04/19 04:30 64 11 L 99/60 98 11/04/19 04:00 65 65 65 14 107/71 99 11/04/19 03:30 61 12 108/66 99 11/04/19 03:20 98.8 F 11/04/19 03:00 61 17 112/83 11/04/19 02:30 67 15 112/79 97 11/04/19 02:00 62 15 109/70 97 11/04/19 01:30 70 16 112/68 98 11/04/19 01:00 76 17 104/67 98 11/04/19 00:30 76 19 121/75 98 11/04/19 00:15 71 15 116/81 100 11/04/19 00:00 98.6 F 72 70 70 16 118/55 100 11/03/19 23:46 68 20 118/55 100 11/03/19 23:30 69 21 116/77 99 11/03/19 23:15 88 18 131/91 100 11/03/19 23:13 98.6 F 11/03/19 23:00 70 15 127/78 100 11/03/19 22:46 96 H 22 107/73 96 11/03/19 22:30 67 22 125/80 99 11/03/19 22:15 68 20 123/81 100 11/03/19 22:10 71 18 130/74 100 11/03/19 22:00 76 21 131/84 100 11/03/19 21:59 75 21 100 11/03/19 21:54 99.1 F 11/03/19 21:36 76 24 100 11/03/19 21:15 74 22 110/69 100 11/03/19 21:00 72 18 106/71 100 11/03/19 20:45 71 17 106/74 100 11/03/19 20:30 69 20 112/69 100 11/03/19 20:16 18 101/48 82 L 11/03/19 20:00 73 18 97/62 100 11/03/19 19:45 69 17 105/65 100 11/03/19 19:30 75 20 100/57 63 L 11/03/19 19:15 76 20 108/72 92 11/03/19 19:00 76 10 L 93/52 100 11/03/19 18:46 75 14 114/65 100 11/03/19 18:30 72 10 L 97/75 100 11/03/19 18:16 72 11 L 93/75 76 L 11/03/19 18:00 75 21 110/68 100 11/03/19 17:46 85 13 110/68 50 L 11/03/19 17:39 98.8 F 73 12 115/81 99 11/03/19 17:30 69 15 115/81 100 11/03/19 17:15 69 14 102/67 99 11/03/19 17:09 98.5 F 69 18 102/67 99 11/03/19 17:00 72 17 108/73 100 11/03/19 16:45 72 19 92/60 100 11/03/19 16:40 90/55 100 03/15/20 16:39 98.0 F 71 20 90/55 100 03/15/20 16:36 90/55 100 0315/20 16:30 90/55 100 03/15/20 16:26 109/70 100 03/15/20 16:20 78 17 109/70 100 15/20 16:16 72 12 109/70 100 0315/20 16:10 82 18 109/72 100 031520 16:09 98.7 F 73 20 109/70 100 1520 16:06 76 18 109/72 100 1520 16:00 71 23 109/72 100 0315/20 15:56 77 19 103/68 100 0315/20 15:54 98.5 F 77 18 103/68 100 1520 15:50 76 12 103/68 100 15/20 15:45 75 16 103/68 100 20 15:40 93 H 19 104/48 98 20 15:36 83 17 104/48 100 1520 15:30 86 14 103/71 98 1520 15:26 78 15 103/71 100 15/20 15:20 88 19 109/72 100 15/20 15:15 82 21 109/72 100 15/20 15:10 83 17 103/71 100 1520 15:06 76 18 103/71 100 1520 15:00 75 15 103/71 100 /15/20 14:56 75 15 106/70 100 15/20 14:50 78 15 106/70 100 1520 14:45 73 15 106/70 100 15/20 14:40 75 18 100/62 100 0315/20 14:36 82 20 100/62 100 03/15/20 14:30 80 17 100/62 100 0315/20 14:26 90 19 97/60 100 0315/20 14:20 87 17 97/60 100 0315/20 14:15 81 17 97/60 100 15/20 14:10 81 15 105/66 100 03/15/20 14:06 80 16 105/66 100 031520 14:00 79 16 105/66 100 1520 13:56 82 17 116/74 100 11/03/19 13:50 77 19 114/72 93 11/03/19 13:45 99.3 F 75 19 114/72 100 11/03/19 13:40 85 14 116/74 100 11/03/19 13:36 79 16 116/74 100 11/03/19 13:30 80 20 116/74 100 11/03/19 13:26 77 9 L 102/69 92 11/03/19 13:20 98.8 F 81 20 102/69 100 11/03/19 13:16 85 13 102/69 100 11/03/19 13:10 85 18 120/79 100 11/03/19 13:06 85 11 L 120/79 100 11/03/19 13:00 83 23 120/79 99 11/03/19 12:56 87 27 H 126/75 89 11/03/19 12:50 98.6 F 113 H 30 H 88/37 100 11/03/19 12:46 89 18 110/70 92 11/03/19 12:40 81 14 110/70 100 11/03/19 12:20 98.9 F 77 18 105/70 100 11/03/19 12:05 98.0 F 84 23 107/64 100 11/03/19 12:00 86 16 107/64 100 11/03/19 11:45 84 20 100/64 61 L 11/03/19 11:30 84 17 107/68 99 11/03/19 11:26 98.5 F 93 H 12 112/70 100 11/03/19 11:15 96 H 19 112/70 91 11/03/19 11:00 103 H 17 103/61 83 L 11/03/19 10:56 98.3 F 81 14 103/53 100 11/03/19 10:45 86 21 103/61 100 11/03/19 10:30 85 19 84/43 100 11/03/19 10:26 86 20 85/45 100 11/03/19 10:15 84/46 100 11/03/19 10:00 90 23 87/45 100 11/03/19 09:56 98.5 F 88 20 85/47 100 11/03/19 09:45 88 22 76/39 100 11/03/19 09:40 99.0 F 86 19 76/39 100 11/03/19 09:30 98.6 F 101 H 14 82/45 100 11/03/19 09:04 92/55 Intake and Output 11/03/19 11/04/19 11/04/19 22:59 06:59 14:59 Intake Total 250 250 Balance 250 250 Intake: Oral 250 Blood Product 250 Leukoreduced Red Blood 250 Cells Unit [id number] Other: Total, Intake Amount 250 Voiding Method Bedside Commode # Voids Void 2 # Bowel Movements 1 Weight 53.7 kg - Exam Abdomen: Present: other (Uterus is palpable above the umbilicus.) - Labs Labs: Abnormal lab results 11/03/19 11/03/19 11/04/19 Range/Units 02:55 21:41 05:19 WBC 4.4 L (4.5-11.0) K/mm3 RBC 2.56 L 2.25 L (3.65-5.03) M/mm3 Hgb 7.1 L D 6.3 L (10.1-14.3) gm/dl Hct 21.6 L D 18.6 L* (30.3-42.9) % RDW 23.1 H 23.1 H (13.2-15.2) % Plt Count 62 L 51 L (140-440) K/mm3 Chloride (98-107) mmol/L Carbon Dioxide (22-30) mmol/L Calcium (8.4-10.2) mg/dL Crossmatch See Detail 11/04/19 Range/Units 05:19 WBC (4.5-11.0) K/mm3 RBC (3.65-5.03) M/mm3 Hgb (10.1-14.3) gm/dl Hct (30.3-42.9) % RDW (13.2-15.2) % Plt Count (140-440) K/mm3 Chloride 107.6 H (98-107) mmol/L Carbon Dioxide 19 L (22-30) mmol/L Calcium 7.8 L (8.4-10.2) mg/dL Crossmatch
[2019-11-04 09:08] LABS: BUN/Creatinine Ratio 11; Blood Urea Nitrogen 11 mg/dL (7-17); Calcium 7.9 mg/dL (8.4-10.2); Hemolysis Index 6
[2019-11-04 09:20] LABS: Platelet Count 54 K/mm3 (140-440); Red Cell Distribution Width 22.8 % (13.2-15.2)
[2019-11-04 09:22] LABS: Hematocrit 19.1 % (30.3-42.9)
--- NOTE | 2019-11-04 09:22 | Consultation ---
History of Present Illness - Reason for Consult Consult date: 11/04/19 Anemia Requesting physician: ESTRADA PALMER - History of Present Illness 44 y/o female with known menorrhagia and severe fibroids admitted with acute blood loss anemia. Called by IMS yesterday in regards to patient BP. Asked to see if she would meet criteria for ICU. Patient typed and crossed for blood transfusion. Patient remained admitted to the IMCU and was transfused overnight. Mental status is fine. BP is stable. Remainder is negative. Past History Past Medical History: other (fibroids) Social history: no significant social history Family history: no significant family history Medications and Allergies Allergies Allergy/AdvReac Type Severity Reaction Status Date / Time No Known Allergies Allergy Unverified 09/14/18 02:35 Home Medications Medication Instructions Recorded Confirmed Last Taken Type Ferrous Sulfate [Feosol 325 MG tab] 325 mg PO BID #60 tablet 09/17/18 Unknown Rx Active Meds: Active Medications Acetaminophen (Tylenol) 650 mg PO Q4H PRN PRN Reason: Pain MILD(1-3)/Fever >100.5/TOBAR Ondansetron HCl (Zofran) 4 mg IV Q8H PRN PRN Reason: Nausea And Vomiting Sodium Chloride (Sodium Chloride Flush Syringe 10 Ml) 10 ml IV BID RAHEL Last Admin: 11/04/19 00:40 Dose: 10 ml Documented by: Sodium Chloride (Sodium Chloride Flush Syringe 10 Ml) 10 ml IV PRN PRN PRN Reason: LINE FLUSH Exam - Constitutional Vitals: Temp Pulse Resp BP Pulse Ox 98.8 F 65 13 104/58 100 11/04/19 03:20 11/04/19 07:00 11/04/19 07:00 11/04/19 07:00 11/04/19 07:00 General appearance: Present: no acute distress - EENT Eyes: Present: PERRL, EOM intact ENT: hearing intact, clear oral mucosa, dentition normal - Respiratory Respiratory effort: normal Respiratory: bilateral: CTA - Cardiovascular Rhythm: regular Results - Labs CBC & Chem 7: 11/04/19 05:19 11/04/19 07:10 Labs: Abnormal lab results 11/03/19 11/03/19 11/04/19 Range/Units 02:55 21:41 05:19 WBC 4.4 L (4.5-11.0) K/mm3 RBC 2.56 L 2.25 L (3.65-5.03) M/mm3 Hgb 7.1 L D 6.3 L (10.1-14.3) gm/dl Hct 21.6 L D 18.6 L* (30.3-42.9) % RDW 23.1 H 23.1 H (13.2-15.2) % Plt Count 62 L 51 L (140-440) K/mm3 Chloride (98-107) mmol/L Carbon Dioxide (22-30) mmol/L Calcium (8.4-10.2) mg/dL Crossmatch See Detail 11/04/19 11/04/19 Range/Units 05:19 07:10 WBC (4.5-11.0) K/mm3 RBC (3.65-5.03) M/mm3 Hgb (10.1-14.3) gm/dl Hct (30.3-42.9) % RDW (13.2-15.2) % Plt Count (140-440) K/mm3 Chloride 107.6 H (98-107) mmol/L Carbon Dioxide 19 L 19 L (22-30) mmol/L Calcium 7.8 L 7.9 L (8.4-10.2) mg/dL Crossmatch Assessment and Plan 44 y/o female with severe menorrhagia and acute blood loss anemia. 1. Tranfuse for HgB below 7 2. Would have a 2-3 units typed and crossed at all times 3. Clearly this is chronic and patient has become somewhat tolerant to low HgB's. BP is stable 4. Stable for transfer out of ICU
--- NOTE | 2019-11-04 09:49 | Progress Note ---
Hospitalist Physical - Constitutional Vitals: Temp Pulse Resp BP Pulse Ox 98.8 F 65 13 104/58 100 11/04/19 03:20 11/04/19 07:00 11/04/19 07:00 11/04/19 07:00 11/04/19 07:00 General appearance: Present: no acute distress Results - Labs CBC & Chem 7: 11/04/19 07:10 11/04/19 07:10 Labs: Laboratory Last Values WBC 4.3 K/mm3 (4.5-11.0) L 11/04/19 07:10 RBC 2.31 M/mm3 (3.65-5.03) L 11/04/19 07:10 Hgb 6.4 gm/dl (10.1-14.3) L 11/04/19 07:10 Hct 19.1 % (30.3-42.9) L* 11/04/19 07:10 MCV 83 fl (79-97) 11/04/19 07:10 MCH 28 pg (28-32) 11/04/19 07:10 MCHC 33 % (30-34) 11/04/19 07:10 RDW 22.8 % (13.2-15.2) H 11/04/19 07:10 Plt Count 54 K/mm3 (140-440) L 11/04/19 07:10 Lymph % (Auto) Automobile Sales Representative 11/03/19 01:33 [place] % (Auto) Automobile Sales Representative 11/03/19 01:33 Eos % (Auto) Automobile Sales Representative 11/03/19 01:33 Baso % (Auto) Automobile Sales Representative 11/03/19 01:33 Lymph # Automobile Sales Representative 11/03/19 01:33 [place] # Automobile Sales Representative 11/03/19 01:33 Eos # Automobile Sales Representative 11/03/19 01:33 Baso # Automobile Sales Representative 11/03/19 01:33 Add Manual Diff Complete 11/04/19 05:19 Total Counted 100 11/04/19 05:19 Seg Neutrophils % Automobile Sales Representative 11/03/19 01:33 Seg Neuts % (Manual) 70.0 % (40.0-70.0) 11/04/19 05:19 Band Neutrophils % 0 % 11/04/19 05:19 Lymphocytes % (Manual) 29.0 % (13.4-35.0) 11/04/19 05:19 Reactive Lymphs % (Man) 0 % 11/04/19 05:19 Monocytes % (Manual) 0 % (0.0-7.3) 11/04/19 05:19 Eosinophils % (Manual) 1.0 % (0.0-4.3) 11/04/19 05:19 Basophils % (Manual) 0 % (0.0-1.8) 11/04/19 05:19 Metamyelocytes % 0 % 11/04/19 05:19 Myelocytes % 0 % 11/04/19 05:19 Promyelocytes % 0 % 11/04/19 05:19 Blast Cells % 0 % 11/04/19 05:19 Nucleated RBC % Not Reportable 11/04/19 05:19 Seg Neutrophils # Automobile Sales Representative 11/03/19 01:33 Seg Neutrophils # Man 3.1 K/mm3 (1.8-7.7) 11/04/19 05:19 Band Neutrophils # 0.0 K/mm3 11/04/19 05:19 Lymphocytes # (Manual) 1.3 K/mm3 (1.2-5.4) 11/04/19 05:19 Abs React Lymphs (Man) 0.0 K/mm3 11/04/19 05:19 Monocytes # (Manual) 0.0 K/mm3 (0.0-0.8) 11/04/19 05:19 Eosinophils # (Manual) 0.0 K/mm3 (0.0-0.4) 11/04/19 05:19 Basophils # (Manual) 0.0 K/mm3 (0.0-0.1) 11/04/19 05:19 Metamyelocytes # 0.0 K/mm3 11/04/19 05:19 Myelocytes # 0.0 K/mm3 11/04/19 05:19 Promyelocytes # 0.0 K/mm3 11/04/19 05:19 Blast Cells # 0.0 K/mm3 11/04/19 05:19 WBC Morphology Not Reportable 11/04/19 05:19 Hypersegmented Neuts Not Reportable 11/04/19 05:19 Hyposegmented Neuts Not Reportable 11/04/19 05:19 Hypogranular Neuts Not Reportable 11/04/19 05:19 Smudge Cells Not Reportable 11/04/19 05:19 Toxic Granulation Not Reportable 11/04/19 05:19 Toxic Vacuolation Not Reportable 11/04/19 05:19 Dohle Bodies Not Reportable 11/04/19 05:19 Pelger-Huet Anomaly Not Reportable 11/04/19 05:19 Mendel Rods Not Reportable 11/04/19 05:19 Platelet Estimate Consistent w auto 11/04/19 05:19 Clumped Platelets Not Reportable 11/04/19 05:19 Plt Clumps, EDTA Not Reportable 11/04/19 05:19 Large Platelets Not Reportable 11/04/19 05:19 Giant Platelets Not Reportable 11/04/19 05:19 Platelet Satelliting Not Reportable 11/04/19 05:19 Plt Morphology Comment Not Reportable 11/04/19 05:19 RBC Morphology Not Reportable 11/04/19 05:19 Dimorphic RBCs Not Reportable 11/04/19 05:19 Polychromasia Not Reportable 11/04/19 05:19 Hypochromasia 1+ 11/04/19 05:19 Poikilocytosis Not Reportable 11/04/19 05:19 Anisocytosis 1+ 11/04/19 05:19 Microcytosis Not Reportable 11/04/19 05:19 Macrocytosis Not Reportable 11/04/19 05:19 Spherocytes Not Reportable 11/04/19 05:19 Pappenheimer Bodies Not Reportable 11/04/19 05:19 Sickle Cells Not Reportable 11/04/19 05:19 Target Cells Rare 11/04/19 05:19 Tear Drop Cells Not Reportable 11/04/19 05:19 Ovalocytes Not Reportable 11/04/19 05:19 Helmet Cells Not Reportable 11/04/19 05:19 [place] Bodies Not Reportable 11/04/19 05:19 [place] Rings Not Reportable 11/04/19 05:19 [place] Cells Not Reportable 11/04/19 05:19 Bite Cells Not Reportable 11/04/19 05:19 Crenated Cell Not Reportable 11/04/19 05:19 Elliptocytes Not Reportable 11/04/19 05:19 Acanthocytes (Spur) Not Reportable 11/04/19 05:19 Rouleaux Not Reportable 11/04/19 05:19 Hemoglobin C Crystals Not Reportable 11/04/19 05:19 Schistocytes Rare 11/04/19 05:19 Malaria parasites Not Reportable 11/04/19 05:19 [place]oh Bodies Not Reportable 11/04/19 05:19 Hem Pathologist Commnt No 11/04/19 05:19 Sodium 138 mmol/L (137-145) 11/04/19 07:10 Potassium 4.3 mmol/L (3.6-5.0) 11/04/19 07:10 Chloride 106.9 mmol/L (98-107) 11/04/19 07:10 Carbon Dioxide 19 mmol/L (22-30) L 11/04/19 07:10 Anion Gap 16 mmol/L 11/04/19 07:10 BUN 11 mg/dL (7-17) 11/04/19 07:10 Creatinine 1.0 mg/dL (0.7-1.2) 11/04/19 07:10 Estimated GFR > 60 ml/min 11/04/19 07:10 BUN/Creatinine Ratio 11 % 11/04/19 07:10 Glucose 82 mg/dL (65-100) 11/04/19 07:10 Calcium 7.9 mg/dL (8.4-10.2) L 11/04/19 07:10 HCG, Quant < 2 mIU/mL (0-4) 11/03/19 01:33 Urine Color Yellow (Yellow) 11/03/19 04:16 Urine Turbidity Slightly-cloudy (Clear) 11/03/19 04:16 Urine pH 5.0 (5.0-7.0) 11/03/19 04:16 Ur Specific [place] 1.011 (1.003-1.030) 11/03/19 04:16 Urine Protein 100 mg/dl mg/dL (Negative) 11/03/19 04:16 Urine Glucose (UA) Neg mg/dL (Negative) 11/03/19 04:16 Urine Ketones Neg mg/dL (Negative) 11/03/19 04:16 Urine Blood Mod (Negative) 11/03/19 04:16 Urine Nitrite Neg (Negative) 11/03/19 04:16 Urine Bilirubin Neg (Negative) 11/03/19 04:16 Urine Urobilinogen < 2.0 mg/dL (<2.0) 11/03/19 04:16 Ur Leukocyte Esterase Neg (Negative) 11/03/19 04:16 Urine WBC (Auto) 4.0 /HPF (0.0-6.0) 11/03/19 04:16 Urine RBC (Auto) 65.0 /HPF (0.0-6.0) 11/03/19 04:16 U Epithel Cells (Auto) 4.0 /HPF (0-13.0) 11/03/19 04:16 Blood Type B POSITIVE 11/03/19 02:55 Antibody Screen Negative 11/03/19 02:55 Crossmatch See Detail 11/03/19 02:55 Murphy/IV: Voiding Method Bedside Commode IV Catheter Type [Right Hand] INT / Saline Lock IV Catheter Type [Left INT / Saline Lock Antecubital] Active Medications - Current Medications Current Medications: Generic Name Dose Route Start Last Admin Trade Name Freq PRN Reason Stop Dose Admin Acetaminophen 650 mg 11/03/19 05:43 Tylenol PO Q4H PRN Pain MILD(1-3)/Fever >100.5/TOBAR Ondansetron HCl 4 mg 11/03/19 05:43 Zofran IV Q8H PRN Nausea And Vomiting Sodium Chloride 10 ml 11/03/19 10:00 11/04/19 00:40 Sodium Chloride Flush Syringe 10 Ml IV 10 ml BID RAHEL Administration Sodium Chloride 10 ml 11/03/19 05:43 Sodium Chloride Flush Syringe 10 Ml IV PRN PRN LINE FLUSH
[2019-11-04] MEDS ORDERED: SODIUM CHLORIDE 0.9% 500 ML 500 ML IV SCH (12:00)
--- NOTE | 2019-11-05 05:54 | Hem/Onc Consultation ---
History of Present Illness - Reason for Consult Consult date: 11/05/19 low plt Requesting physician: JEN MOORE - History of Present Illness 44-year-old woman with a history of fibroid, menorrhagia, developmental delay comes emergency room with complaints of generalized weakness, fatigue. Mother at bedside states that started her. Last week Monday which continued until . she has heavy cycles. At home she difficulty doing her ADLs. Patient was supposed to follow-up with [facility] outpatient from the last admission, they have not done so. Patient was admitted for anemia, menorrhagia Review Of Systems: Constitutional: no weight loss, fever, chills Ears, eyes, nose, mouth and throat: no nasal congestion, no nasal discharge, no sinus pressure, blurry vision, diplopia Neck: No neck pain or rigidity. Cardiovascular: No palpitations, chest pain Respiratory: No shortness of breath, cough Gastrointestinal: No hematochezia Genitourinary : no dysuria, frequency Musculoskeletal: no muscle ache , joint pain Integumentary: no rash, no pruritis Neurological: developement delay Endocrine: no cold or heat intolerance, no polyuria or polydipsia Hematologic/Lymphatic: no easy bruising, no easy bleeding, no gland swelling Allergic/Immunologic: no urticaria, no angioedema. PAST MEDICAL HISTORY: ibroid, menorrhagia, developmental delay PAST SURGICAL HISTORY: Tonsillectomy SOCIAL HISTORY: Denies alcohol, tobacco, drugs FAMILY HISTORY: Hypertension consulted as low plt pt received multiple PRBC Past History Past Medical History: other (fibroids) Social history: no significant social history Family history: no significant family history Medications and Allergies Allergies Allergy/AdvReac Type Severity Reaction Status Date / Time No Known Allergies Allergy Unverified 09/14/18 02:35 Home Medications Medication Instructions Recorded Confirmed Last Taken Type Ferrous Sulfate [Feosol 325 MG tab] 325 mg PO BID #60 tablet 09/17/18 11/04/19 Unknown Rx Active Meds: Active Medications Acetaminophen (Tylenol) 650 mg PO Q4H PRN PRN Reason: Pain MILD(1-3)/Fever >100.5/TOBAR Ondansetron HCl (Zofran) 4 mg IV Q8H PRN PRN Reason: Nausea And Vomiting Sodium Chloride (Sodium Chloride Flush Syringe 10 Ml) 10 ml IV PRN PRN PRN Reason: LINE FLUSH Review of Systems Constitutional: fatigue, weakness, lethargy Ears, nose, mouth and throat: no epistaxis Respiratory: no hemoptysis Genitourinary Female: menorrhagia Neurological: no seizures Exam - Exam Narrative Exam: Gen. appearance: Patient lying in bed, no apparent distress HEENT: Normocephalic, atraumatic, pupils equally round and reactive to light, extraocular movement intact, and no sclericterus,. No JVD or thyromegaly or nodule,neck supple, no carotid bruit ,mucous membranes moist, no exudate or erythema Heart: S1, S2, regular rate and rhythm Lungs: Clear bilaterally, breathing comfortable Abdomen: larger fibroids Extremity: no edema, cyanosis, clubbing Skin: No rash, nodules, warm, dry Neuro: awake - follows commands - Constitutional Vitals: Last Vital Signs Temp 98.7 F 11/05/19 04:00 Pulse 74 11/05/19 04:00 Resp 18 11/05/19 04:00 BP 106/72 11/05/19 04:00 Pulse Ox 98 11/04/19 20:05 Results - Labs lab Results: Laboratory Results - last 24 hr 11/03/19 11/04/19 11/04/19 02:55 05:19 05:19 WBC RBC Hgb Hct MCV MCH MCHC RDW Plt Count Add Manual Diff Complete Total Counted 100 Seg Neuts % (Manual) 70.0 Band Neutrophils % 0 Lymphocytes % (Manual) 29.0 Reactive Lymphs % (Man) 0 Monocytes % (Manual) 0 Eosinophils % (Manual) 1.0 Basophils % (Manual) 0 Metamyelocytes % 0 Myelocytes % 0 Promyelocytes % 0 Blast Cells % 0 Nucleated RBC % Not Reportable Seg Neutrophils # Man 3.1 Band Neutrophils # 0.0 Lymphocytes # (Manual) 1.3 Abs React Lymphs (Man) 0.0 Monocytes # (Manual) 0.0 Eosinophils # (Manual) 0.0 Basophils # (Manual) 0.0 Metamyelocytes # 0.0 Myelocytes # 0.0 Promyelocytes # 0.0 Blast Cells # 0.0 WBC Morphology Not Reportable Hypersegmented Neuts Not Reportable Hyposegmented Neuts Not Reportable Hypogranular Neuts Not Reportable Smudge Cells Not Reportable Toxic Granulation Not Reportable Toxic Vacuolation Not Reportable Dohle Bodies Not Reportable Pelger-Huet Anomaly Not Reportable Mendel Rods Not Reportable Platelet Estimate Consistent w auto Clumped Platelets Not Reportable Plt Clumps, EDTA Not Reportable Large Platelets Not Reportable Giant Platelets Not Reportable Platelet Satelliting Not Reportable Plt Morphology Comment Not Reportable RBC Morphology Not Reportable Dimorphic RBCs Not Reportable Polychromasia Not Reportable Hypochromasia 1+ Poikilocytosis Not Reportable Anisocytosis 1+ Microcytosis Not Reportable Macrocytosis Not Reportable Spherocytes Not Reportable Pappenheimer Bodies Not Reportable Sickle Cells Not Reportable Target Cells Rare Tear Drop Cells Not Reportable Ovalocytes Not Reportable Helmet Cells Not Reportable [place] Bodies Not Reportable [place] Rings Not Reportable [place] Cells Not Reportable Bite Cells Not Reportable Crenated Cell Not Reportable Elliptocytes Not Reportable Acanthocytes (Spur) Not Reportable Rouleaux Not Reportable Hemoglobin C Crystals Not Reportable Schistocytes Rare Malaria parasites Not Reportable [place] Bodies Not Reportable Hem Pathologist Commnt No Sodium 138 Potassium 4.4 Chloride 107.6 H Carbon Dioxide 19 L Anion Gap 16 BUN 12 Creatinine 0.9 Estimated GFR > 60 BUN/Creatinine Ratio 13 Glucose 86 Calcium 7.8 L Blood Type B POSITIVE Antibody Screen Negative Crossmatch See Detail 11/04/19 11/04/19 07:10 07:10 WBC 4.3 L RBC 2.31 L Hgb 6.4 L Hct 19.1 L* MCV 83 MCH 28 MCHC 33 RDW 22.8 H Plt Count 54 L Add Manual Diff Total Counted Seg Neuts % (Manual) Band Neutrophils % Lymphocytes % (Manual) Reactive Lymphs % (Man) Monocytes % (Manual) Eosinophils % (Manual) Basophils % (Manual) Metamyelocytes % Myelocytes % Promyelocytes % Blast Cells % Nucleated RBC % Seg Neutrophils # Man Band Neutrophils # Lymphocytes # (Manual) Abs React Lymphs (Man) Monocytes # (Manual) Eosinophils # (Manual) Basophils # (Manual) Metamyelocytes # Myelocytes # Promyelocytes # Blast Cells # WBC Morphology Hypersegmented Neuts Hyposegmented Neuts Hypogranular Neuts Smudge Cells Toxic Granulation Toxic Vacuolation Dohle Bodies Pelger-Huet Anomaly Mendel Rods Platelet Estimate Clumped Platelets Plt Clumps, EDTA Large Platelets Giant Platelets Platelet Satelliting Plt Morphology Comment RBC Morphology Dimorphic RBCs Polychromasia Hypochromasia Poikilocytosis Anisocytosis Microcytosis Macrocytosis Spherocytes Pappenheimer Bodies Sickle Cells Target Cells Tear Drop Cells Ovalocytes Helmet Cells Monique-[place]par[place] Bodies [place] Rings [place] Cells Bite Cells Crenated Cell Elliptocytes Acanthocytes (Spur) Rouleaux Hemoglobin C Crystals Schistocytes Malaria parasites [place]o Bodies Hem Pathologist Commnt Sodium 138 Potassium 4.3 Chloride 106.9 Carbon Dioxide 19 L Anion Gap 16 BUN 11 Creatinine 1.0 Estimated GFR > 60 BUN/Creatinine Ratio 11 Glucose 82 Calcium 7.9 L Blood Type Antibody Screen Crossmatch Assessment and Plan Severe anemia secondary to menorrhagia/fibroids Transfused packed red blood cells, Thrombocytopenia, possible secondary to consumption - this is surprising - as usually NUBIA causes high plt pt was seen in aug 2019 - at that time - b12 - folat was normal iron was low pt got iv iron will give iv iron in aug 2019 - plt were high - she may been on some new meds or the heavy bleeding - causing consumption or a infection may be the cause of low plt now - will follow the trend - Patient Problems (1) Severe anemia Current Visit: No Status: Acute (2) Thrombocytopenia Current Visit: Yes Status: Acute
--- NOTE | 2019-11-05 07:39 | Progress Note ---
Assessment and Plan - Patient Problems (1) Fibroid uterus Current Visit: Yes Status: Acute Plan to address problem: will transfuse 2 units prbcs surgery discussed with parent schedule total abdominal hysterectomy tomorrow (2) Menorrhagia Current Visit: Yes Status: Acute (3) Symptomatic anemia Current Visit: Yes Status: Acute (4) Severe anemia Current Visit: No Status: Acute Subjective - Subjective Date of service: 11/05/19 Principal diagnosis: dysfunctional uterine bleeding; fibroids Interval history: Vaginal bleeding is scant. Patient without symptoms. Discussed with parent with proceeding with hysterectomy. Patient reports: appetite normal, voiding normally, pain well controlled, no dizzy ambulation Objective - Vital Signs Latest vital signs: Vital Signs Temp Pulse Pulse Pulse Resp BP BP 11/05/19 04:00 98.7 F 74 18 106/72 11/05/19 00:00 98.6 F 72 16 117/64 11/04/19 20:05 98.2 F 72 18 99/63 11/04/19 17:03 97.4 F L 62 18 127/79 11/04/19 16:32 97.3 F L 56 L 18 121/68 11/04/19 15:59 98.7 F 65 18 107/66 11/04/19 15:21 97.3 F L 56 L 18 121/68 11/04/19 15:06 97.5 F L 62 18 108/68 11/04/19 14:59 97.4 F L 65 18 106/70 11/04/19 14:01 97.2 F L 65 18 128/78 11/04/19 13:31 97.5 F L 64 18 125/81 11/04/19 13:03 98.1 F 61 18 107/71 11/04/19 13:01 97.5 F L 64 18 125/81 11/04/19 12:31 97.8 F 62 18 107/67 11/04/19 12:16 98.0 F 63 18 111/70 11/04/19 12:13 98.2 F 62 18 118/68 11/04/19 10:45 97.8 F 66 18 117/75 11/04/19 09:30 91 H 17 111/66 11/04/19 09:00 77 15 105/71 11/04/19 08:30 59 L 17 108/68 11/04/19 08:00 97.7 F 58 L 65 65 14 105/64 Pulse Ox 11/05/19 04:00 11/05/19 00:00 11/04/19 20:05 98 11/04/19 17:03 100 11/04/19 16:32 98 11/04/19 15:59 99 11/04/19 15:21 98 11/04/19 15:06 100 11/04/19 14:59 98 11/04/19 14:01 100 11/04/19 13:31 97 11/04/19 13:03 100 11/04/19 13:01 97 11/04/19 12:31 100 11/04/19 12:16 100 11/04/19 12:13 100 11/04/19 10:45 100 11/04/19 09:30 100 11/04/19 09:00 99 11/04/19 08:30 100 11/04/19 08:00 97 Intake and Output 11/04/19 11/05/19 11/05/19 22:59 06:59 14:59 Intake Total 250 300 Balance 250 300 Intake: Intake, Free Water 300 Blood Product 250 Leukoreduced Red Blood 250 Cells Unit [id number] Other: # Voids Void 1 - Exam Abdomen: Present: mass - Labs Labs: Abnormal lab results 11/03/19 11/04/19 11/04/19 Range/Units 02:55 07:10 07:10 WBC 4.3 L (4.5-11.0) K/mm3 RBC 2.31 L (3.65-5.03) M/mm3 Hgb 6.4 L (10.1-14.3) gm/dl Hct 19.1 L* (30.3-42.9) % RDW 22.8 H (13.2-15.2) % Plt Count 54 L (140-440) K/mm3 Carbon Dioxide 19 L (22-30) mmol/L Calcium 7.9 L (8.4-10.2) mg/dL Crossmatch See Detail
[2019-11-05] MEDS ORDERED: SODIUM CHLORIDE 0.9% 500 ML 500 ML IV SCH (09:00)
[2019-11-05] MEDS: FERROUS SULFATE 325 MG TAB PO SCH ×2 (09:21→21:16)
[2019-11-05] MEDS ORDERED: SODIUM FERRIC GLUCON/SUCRO 125 MG in SODIUM CHLORIDE 0.9% 100 ML IV ONE (09:30)
--- NOTE | 2019-11-05 11:59 | Anesthesia Consultation ---
<SHARRON BOWERS - Last Filed: 11/05/19 12:00> Anesthesia Consult and Med Hx Date of service: 11/05/19 - Airway Anesthetic Teeth Evaluation: Poor (multiple missing teeth) ROM Head & Neck: Adequate Mental/Hyoid Distance: Adequate Mallampati Class: Class II Intubation Access Assessment: Probably Good - Pre-Operative Health Status ASA Pre-Surgery Classification: ASA2 Proposed Anesthetic Plan: General - Central Nervous System Hx Psychiatric Problems: Yes (developmental delay) - Hematic Hx Anemia: Yes (critical on admission, s/p transfusion of 7 units of RBCs) <TONI DONALDSON - Last Filed: 11/06/19 10:18> Anesthesia Consult and Med Hx - Additional Comments Anesthesia Medical History Comments: Examined immediately prior to surgery. Labs significant for thromcytopenia with plt 50. Platelets ordered but not in-house and have been advised by blood bank of national shortage of platelets. No active bleeding at this time. Discussed with surgeon. Will crossmatch for additional pRBCs and consider platelet transfusion as necessary. Mother consented to TAP block which will be performed post op prior to emergence.
--- NOTE | 2019-11-05 12:22 | Event Note ---
Date: 11/05/19 Patient scheduled to receive 2 units prbcs. Demonstrating evidence of thrombocytopenia. Vaginal bleeding currently scant. Will draw coags and possible transfusion of platelets prior to surgery.
[2019-11-05 19:56] LABS: Basophils % (Auto) 0.6 % (0.0-1.8); Eosinophils % (Auto) 0.6 % (0.0-4.3); Hematocrit 33.1 % (30.3-42.9); Hemoglobin 11.3 gm/dl (10.1-14.3); Lymphocytes # (Auto) 0.3 K/mm3 (1.2-5.4); Lymphocytes % (Auto) 4.1 % (13.4-35.0); Mean Corpuscular HGB Conc 34 % (30-34); Mean Corpuscular Volume 85 fl (79-97); Monocytes # (Auto) 0.5 K/mm3 (0.0-0.8); Monocytes % (Auto) 5.7 % (0.0-7.3); Red Blood Count 3.88 M/mm3 (3.65-5.03); Red Cell Distribution Width 17.5 % (13.2-15.2)
[2019-11-05 19:57] LABS: Platelet Count 51 K/mm3 (140-440)
[2019-11-05 20:12] LABS: INR 1.14 (0.87-1.13); Partial Thromboplastin Time 39.4 Sec. (24.2-36.6)
[2019-11-05] MEDS: ACETAMINOPHEN 325 MG TAB PO PRN (21:15)
[2019-11-06 06:29] LABS: Hematocrit 31.7 % (30.3-42.9); Hemoglobin 10.9 gm/dl (10.1-14.3); Mean Corpuscular HGB Conc 34 % (30-34); Mean Corpuscular Volume 85 fl (79-97); Red Blood Count 3.75 M/mm3 (3.65-5.03); Red Cell Distribution Width 16.8 % (13.2-15.2)
[2019-11-06 06:31] LABS: Platelet Count 50 K/mm3 (140-440)
[2019-11-06 06:42] LABS: INR 1.15 (0.87-1.13)
[2019-11-06 06:43] LABS: Partial Thromboplastin Time 37.7 Sec. (24.2-36.6)
[2019-11-06] MEDS ORDERED: FAMOTIDINE 20 MG/2 ML INJ IV NR (07:00)
[2019-11-06] MEDS ORDERED: SODIUM CHLORIDE 0.9% 1000 ML 1,000 ML IV SCH (07:00)
[2019-11-06 07:29] LABS: Basophils % (Manual) 0 % (0.0-1.8); Total Cells Counted 100
[2019-11-06 07:30] LABS: Schistocytes Few
[2019-11-06 07:32] LABS: Hypochromasia Few; Platelet Estimate Consistent w Auto
[2019-11-06] MEDS ORDERED: ceFAZolin/STERILE WATER 2 GM/20 ML SYRINGE IV NR (09:40)
--- NOTE | 2019-11-06 10:08 | Anesthesia Day of Surgery ---
Anesthesia Day of Surgery - Day of Surgery Patient Examined: Yes Patient H&P Reviewed: Yes Patient is NPO: Yes
[2019-11-06] MEDS ORDERED: propofoL 200 MG/20 ML VIAL IV ONE (10:17)
[2019-11-06] MEDS ORDERED: CELECOXIB 200 MG CAP ONE (10:17)
[2019-11-06] MEDS ORDERED: ONDANSETRON 4 MG/2 ML INJ ONE ×2 (10:17→11:31)
[2019-11-06] MEDS ORDERED: MAGNESIUM OXIDE 400 MG TAB PO ONE (10:17)
[2019-11-06] MEDS ORDERED: ROCURONIUM 50 MG/5 ML INJ IV ONE ×2 (10:17→12:06)
[2019-11-06] MEDS ORDERED: HYDROmorphone 1 MG/1 ML INJ ONE ×2 (10:17→14:10)
[2019-11-06] MEDS ORDERED: LIDOCAINE MPF (2%) 20 MG/1 ML VIAL 5 ML ONE (10:18)
[2019-11-06] MEDS ORDERED: MIDAZOLAM 2 MG/2 ML INJ ONE (10:18)
[2019-11-06] MEDS ORDERED: GABAPENTIN 300 MG CAP ONE (10:18)
--- NOTE | 2019-11-06 10:23 | Progress Note ---
Assessment and Plan Severe Symptomatic Anemia -Due to menorrhagia from fibroid uterus - s/p 8 unit PRBC transfused - hb on admission was 2.1 -Continue to monitor CBC Menorrhagia -Due to fibroid uterus -Currently has scanty vaginal discharge Thrombocytopenia -Monitor for now, coags has been ordered Fibroid Uterus -CLOTH MENDER consulted, surgical options has been discussed Developmental Delay -Continue supportive care DVT prophylaxis, SCD Subjective Date of service: 11/05/19 Principal diagnosis: dysfunctional uterine bleeding; fibroids Objective - Constitutional Vitals: Vital Signs - 12hr 11/06/19 11/06/19 00:00 04:00 Temperature 98.7 F 98.6 F Pulse Rate 77 70 Respiratory 18 16 Rate Blood Pressure 121/78 102/78 [Left] - Labs CBC & Chem 7: 11/06/19 06:15 11/04/19 07:10 Labs: Abnormal lab results 11/03/19 11/05/19 11/05/19 Range/Units 02:55 19:13 19:13 RDW 17.5 H (13.2-15.2) % Plt Count 51 L (140-440) K/mm3 Lymph % (Auto) 4.1 L (13.4-35.0) % Lymph # 0.3 L (1.2-5.4) K/mm3 Seg Neutrophils % 89.0 H (40.0-70.0) % Lymphocytes % (Manual) (13.4-35.0) % INR 1.14 H (0.87-1.13) APTT 39.4 H (24.2-36.6) Sec. Crossmatch See Detail 11/06/19 11/06/19 Range/Units 06:15 06:15 RDW 16.8 H (13.2-15.2) % Plt Count 50 L (140-440) K/mm3 Lymph % (Auto) (13.4-35.0) % Lymph # (1.2-5.4) K/mm3 Seg Neutrophils % (40.0-70.0) % Lymphocytes % (Manual) 48.0 H (13.4-35.0) % INR 1.15 H (0.87-1.13) APTT 37.7 H (24.2-36.6) Sec. Crossmatch
--- NOTE | 2019-11-06 10:24 | Progress Note ---
Assessment and Plan Severe Symptomatic Anemia -Due to menorrhagia from fibroid uterus - s/p 8 unit PRBC transfused - hb on admission was 2.1 -Continue to monitor CBC Menorrhagia -Due to fibroid uterus -Currently has scanty vaginal discharge Thrombocytopenia -Monitor for now, coags has been ordered Fibroid Uterus -IMPORT EXPORT CLERK consulted, surgical options has been discussed - plan for hysterectomy today Developmental Delay -Continue supportive care DVT prophylaxis, SCD Subjective Date of service: 11/06/19 Principal diagnosis: dysfunctional uterine bleeding; fibroids Interval history: Patient seen and examined H/H stable, no massive vaginal bleeding Mother at bedside, updated Objective - Constitutional Vitals: Vital Signs - 12hr 11/06/19 11/06/19 00:00 04:00 Temperature 98.7 F 98.6 F Pulse Rate 77 70 Respiratory 18 16 Rate Blood Pressure 121/78 102/78 [Left] General appearance: Present: no acute distress - EENT Eyes: PERRL, EOM intact ENT: hearing intact, clear oral mucosa Ears: bilateral: normal - Neck Neck: supple, normal ROM - Respiratory Respiratory effort: normal Respiratory: bilateral: CTA - Cardiovascular Rhythm: regular Heart Sounds: Present: S1 & S2. Absent: gallop, rub Extremities: pulses intact, No edema, normal color, Full ROM - Gastrointestinal General gastrointestinal: Present: soft, non-tender, non-distended, normal bowel sounds - Integumentary Integumentary: clear, warm, dry - Musculoskeletal Musculoskeletal: 1, strength equal bilaterally - Neurologic Neurologic: moves all extremities - Psychiatric Psychiatric: cooperative - Labs CBC & Chem 7: 11/06/19 16:19 11/04/19 07:10 Labs: Abnormal lab results 11/03/19 11/05/19 11/05/19 Range/Units 02:55 19:13 19:13 RDW 17.5 H (13.2-15.2) % Plt Count 51 L (140-440) K/mm3 Lymph % (Auto) 4.1 L (13.4-35.0) % Lymph # 0.3 L (1.2-5.4) K/mm3 Seg Neutrophils % 89.0 H (40.0-70.0) % Lymphocytes % (Manual) (13.4-35.0) % INR 1.14 H (0.87-1.13) APTT 39.4 H (24.2-36.6) Sec. Crossmatch See Detail 11/06/19 11/06/19 Range/Units 06:15 06:15 RDW 16.8 H (13.2-15.2) % Plt Count 50 L (140-440) K/mm3 Lymph % (Auto) (13.4-35.0) % Lymph # (1.2-5.4) K/mm3 Seg Neutrophils % (40.0-70.0) % Lymphocytes % (Manual) 48.0 H (13.4-35.0) % INR 1.15 H (0.87-1.13) APTT 37.7 H (24.2-36.6) Sec. Crossmatch
[2019-11-06] MEDS ORDERED: CELECOXIB 200 MG CAP PO NR (10:30)
[2019-11-06] MEDS ORDERED: MAGNESIUM OXIDE 400 MG TAB PO NR (10:30)
[2019-11-06] MEDS ORDERED: GABAPENTIN 300 MG CAP PO NR (10:30)
[2019-11-06] MEDS ORDERED: MIDAZOLAM 2 MG/2 ML INJ IV NR (10:30)
[2019-11-06] MEDS ORDERED: CITRIC ACID-SOD CITRATE 500 ML IV ONE (10:46)
[2019-11-06] MEDS ORDERED: LACTATED RINGERS 1,000 ML IV SCH (11:30)
[2019-11-06] MEDS ORDERED: dexAMETHasone 20 MG/5 ML VIAL ONE (11:31)
[2019-11-06] MEDS ORDERED: LACTATED RINGERS 1,000 ML ONE ×2 (12:06→13:17)
[2019-11-06] MEDS ORDERED: SODIUM CHLORIDE 0.9% IRR 1,000 ML BOTTLE IR ONE (12:42)
[2019-11-06] MEDS ORDERED: CITRIC ACID-SOD CITRATE SOLN 500 ML IV SOLN IV ONE (12:42)
[2019-11-06] MEDS ORDERED: BUPIVACAINE/PF (0.25%) 2.5 MG/ML 30 ML VIAL INFILTRATI ONE (12:54)
[2019-11-06] MEDS ORDERED: PHENYLEPHRINE/NS 1,000 MCG/10 ML SYRINGE (OR USE) IV ONE (13:00)
[2019-11-06] MEDS ORDERED: NEOSTIGMINE 10MG/10 ML INJ MDV ONE ×2 (13:27)
[2019-11-06] MEDS ORDERED: GLYCOPYRROLATE 0.4 MG/2 ML INJ ONE (13:27)
[2019-11-06] MEDS: HYDROmorphone 1 MG/1 ML INJ IV PRN ×2 (14:11→14:31)
[2019-11-06] MEDS ORDERED: ONDANSETRON 4 MG/2 ML INJ IV PRN (14:30)
[2019-11-06] MEDS ORDERED: ZOLPIDEM 5 MG TAB PO PRN (15:49)
[2019-11-06] MEDS ORDERED: MORPHINE 4 MG/1 ML INJ IV PRN (15:49)
--- NOTE | 2019-11-06 15:55 | Operative Report ---
Operative Report Operative Report: Date: November 06, 2019 Preoperative diagnosis: Severe iron deficiency anemia; dysfunctional uterine bleeding; leiomyoma Postoperative diagnosis: Same as above Procedure: Total abdominal hysterectomy Surgeon: Moira Artis M.D. Batch Tester: Radha Hinds Anesthesia: General endotracheal anesthesia Estimated blood loss:[default value] Urine output:[default value] IV fluids:[default value] Indication:[default value] Pathology:[default value] Findings:[default value] Procedure: The risk and benefits and indications of the procedure were reviewed with the patient and informed consent was obtained the patient was taken to the operating room. The patient was placed in supine position and given general anesthesia. The patient was prepped and draped in a normal sterile fashion. A Pfannenstiel skin incision was made down to the layer of the fascia which was nicked in the midline and extended laterally with the Bovie cautery. Superior aspect of the rectus fascia was grasped with [place] clamps -2 and the rectus muscles off sharply. This was performed in an inferior fashion as well. The rectus muscle in the midline and the peritoneum entered bluntly. The pelvis was examined with the following findings [default value]. An [place]-O'Leon retractor was placed into the incision and the bowel packed away with moist laparotomy sponges. 2 Gasca clamps were placed on the cornua and used for retraction. The round ligaments on both sides were clamped transected and suture ligated with 0 Vicryl. The anterior leaf of the broad ligament was then incised along the bladder reflection to the midline from both sides the bladder was then gently dissected off the lower uterine segment and the cervix with a sponge stick. The infundibulopelvic ligament on both sides were doubly clamped transected and suture ligated with 0 Vicryl. Hemostasis was assured. The uterine vessels were then skeletonized bilaterally clamped with Harjeet clamps transected and suture ligated with 0 Vicryl. The uterosacral ligaments were clamped similarly on both sides transected and suture ligated. The cervix and the uterus were then amputated from the vaginal cuff. The vaginal cuff edges were closed with a Harjeet fixation stitch and interrupted [id number] stitches in the midline with 0 Vicryl. The pelvis was then copiously irrigated with normal saline. Tissell was applied to the surgical sites. All laparotomy sponges and instruments were then removed from the abdomen. The peritoneum was then reapproximated with 3-0 Vicryl incorporating the rectus muscle. The fascia was then closed in 0 Vicryl in a running fashion. The skin was then reapproximated with 3-0 Monocryl on a Jesús needle subcuticular fashion. Across the incision. Pressure dressing was applied to the incision. All sponge laps and needle counts were correct -2. Patient was then successfully extubated. The patient was taken to the recovery room in stable condition.
[2019-11-06] MEDS ORDERED: D5W/LACTATED RINGERS 1,000 ML IV SCH (16:00)
[2019-11-06] MEDS: KETOROLAC 30 MG/1 ML INJ IV SCH ×2 (16:26→21:54)
--- NOTE | 2019-11-06 16:29 | Post Anesthesia Evaluation ---
- Post Anesthesia Evaluation Patient Participated: Yes (baseline mentation) Airway Patent: Yes Stable Respiratory Function: Yes Nausea/Vomiting: No Temp > 96.8F: Yes Pain Manageable: Yes Adequeate Hydration: Yes Anesthesia Complications: No Other Comments: Patient remained HD stable at preop baseline while in PACU. CBC ordered but not collected prior to transfer to floor.
[2019-11-06 17:02] LABS: Hematocrit 31.2 % (30.3-42.9); Hemoglobin 10.3 gm/dl (10.1-14.3); Mean Corpuscular HGB Conc 33 % (30-34); Mean Corpuscular Volume 87 fl (79-97); Red Blood Count 3.59 M/mm3 (3.65-5.03)
[2019-11-06 17:05] LABS: Platelet Count 55 K/mm3 (140-440)
[2019-11-06] MEDS: IBUPROFEN 600 MG TAB PO SCH (18:07)
[2019-11-06] MEDS: FERROUS SULFATE 325 MG TAB PO SCH (21:53)
[2019-11-06 22:24] LABS: INR 1.23 (0.87-1.13)
[2019-11-06 22:25] LABS: Partial Thromboplastin Time 34.9 Sec. (24.2-36.6)
[2019-11-07] MEDS: IBUPROFEN 600 MG TAB PO SCH ×3 (00:48→16:43)
[2019-11-07] MEDS: ACETAMINOPHEN 325 MG TAB PO PRN (05:53)
[2019-11-07] MEDS: KETOROLAC 30 MG/1 ML INJ IV SCH ×3 (07:04→16:42)
[2019-11-07 07:25] LABS: Basophils % (Auto) 0.3 % (0.0-1.8); Eosinophils % (Auto) 0.4 % (0.0-4.3); Hematocrit 27.2 % (30.3-42.9); Lymphocytes # (Auto) 0.9 K/mm3 (1.2-5.4); Lymphocytes % (Auto) 10.8 % (13.4-35.0); Mean Corpuscular HGB Conc 33 % (30-34); Mean Corpuscular Volume 87 fl (79-97); Monocytes # (Auto) 0.8 K/mm3 (0.0-0.8); Monocytes % (Auto) 9.8 % (0.0-7.3); Red Blood Count 3.14 M/mm3 (3.65-5.03); Red Cell Distribution Width 16.6 % (13.2-15.2)
[2019-11-07 07:35] LABS: Partial Thromboplastin Time 37.2 Sec. (24.2-36.6)
[2019-11-07 07:36] LABS: INR 1.27 (0.87-1.13)
[2019-11-07 07:47] LABS: Platelet Count 73 K/mm3 (140-440)
--- NOTE | 2019-11-07 08:13 | Progress Note ---
Assessment and Plan - Patient Problems (1) Fibroid uterus Current Visit: Yes Status: Acute Plan to address problem: Patient doing well will review labs upon the return If patient remains clinically stable will consider discharge later today. (2) Menorrhagia Current Visit: Yes Status: Acute (3) Symptomatic anemia Current Visit: Yes Status: Acute (4) Severe anemia Current Visit: No Status: Acute Subjective - Subjective Date of service: 11/07/19 Principal diagnosis: dysfunctional uterine bleeding; fibroids Interval history: The patient is without complaints today. CBC is pending this morning. The patient has been sitting up and ambulating in the room. She has been tolerating her clear diet without complication. Her parent reports that the patient has been passing flatus. Patient reports: appetite normal, pain well controlled Objective - Vital Signs Latest vital signs: Vital Signs Temp Pulse Pulse Resp Resp BP BP 11/07/19 06:53 18 11/07/19 05:53 18 11/07/19 05:15 97.3 F L 47 L 14 117/75 11/07/19 00:17 97.3 F L 71 14 118/72 11/06/19 22:24 18 11/06/19 22:00 18 11/06/19 21:54 18 11/06/19 20:36 90 18 11/06/19 20:03 97.3 F L 57 L 16 108/68 11/06/19 16:26 20 11/06/19 16:15 97.9 F 54 L 20 123/71 11/06/19 15:20 97.9 F 54 L 12 133/77 11/06/19 15:07 53 L 12 133/77 11/06/19 14:49 52 L 11 L 127/75 11/06/19 14:41 97.5 F L 53 L 12 128/69 11/06/19 14:31 13 11/06/19 14:30 55 L 12 143/73 11/06/19 14:15 52 L 11 L 146/82 11/06/19 14:11 12 11/06/19 14:00 53 L 13 133/53 11/06/19 13:45 55 L 11 L 144/75 11/06/19 13:40 54 L 11 L 145/71 11/06/19 13:35 97.8 F 57 L 12 137/76 11/06/19 10:25 16 11/06/19 09:30 99.3 F 63 22 133/75 11/06/19 09:15 99.3 F 63 22 133/75 Pulse Ox 11/07/19 06:53 11/07/19 05:53 11/07/19 05:15 99 11/07/19 00:17 96 11/06/19 22:24 11/06/19 22:00 11/06/19 21:54 11/06/19 20:36 11/06/19 20:03 97 11/06/19 16:26 11/06/19 16:15 11/06/19 15:20 100 11/06/19 15:07 98 11/06/19 14:49 97 11/06/19 14:41 99 11/06/19 14:31 11/06/19 14:30 98 11/06/19 14:15 100 11/06/19 14:11 11/06/19 14:00 100 11/06/19 13:45 100 11/06/19 13:40 100 11/06/19 13:35 100 11/06/19 10:25 11/06/19 09:30 99 11/06/19 09:15 99 Intake and Output 11/06/19 11/07/19 11/07/19 22:59 06:59 14:59 Intake Total 180 580 Output Total 0 2350 Balance 180 -1770 Intake: Oral 180 480 Intake, Free Water 100 Output: Urine 0 2350 Indwelling Catheter 0 2350 Other: Total, Intake Amount 90 480 Total, Output Amount 0 750 Voiding Method Indwelling Catheter # Voids Indwelling Catheter 600 - Exam Incision: Present: dressed - Labs Labs: Abnormal lab results 11/06/19 11/06/19 11/06/19 Range/Units 10:00 16:19 21:02 RBC 3.59 L (3.65-5.03) M/mm3 Hgb (10.1-14.3) gm/dl Hct (30.3-42.9) % RDW 17.0 H (13.2-15.2) % Plt Count 55 L (140-440) K/mm3 Lymph % (Auto) (13.4-35.0) % [place] % (Auto) (0.0-7.3) % Lymph # (1.2-5.4) K/mm3 Seg Neutrophils % (40.0-70.0) % PT 15.7 H (12.2-14.9) Sec. INR 1.23 H (0.87-1.13) APTT (24.2-36.6) Sec. Crossmatch See Detail 11/07/19 11/07/19 Range/Units 07:11 07:11 RBC 3.14 L (3.65-5.03) M/mm3 Hgb 9.0 L (10.1-14.3) gm/dl Hct 27.2 L (30.3-42.9) % RDW 16.6 H (13.2-15.2) % Plt Count 73 L (140-440) K/mm3 Lymph % (Auto) 10.8 L (13.4-35.0) % [place] % (Auto) 9.8 H (0.0-7.3) % Lymph # 0.9 L (1.2-5.4) K/mm3 Seg Neutrophils % 78.7 H (40.0-70.0) % PT 16.1 H (12.2-14.9) Sec. INR 1.27 H (0.87-1.13) APTT 37.2 H (24.2-36.6) Sec. Crossmatch
[2019-11-07] MEDS: oxyCODONE /ACETAMINOPHEN 5-325MG TAB PO PRN ×2 (09:19→22:43)
[2019-11-07] MEDS: FERROUS SULFATE 325 MG TAB PO SCH ×2 (09:22→22:46)
--- NOTE | 2019-11-07 14:43 | Discharge Summary ---
Providers - Providers Date of Admission: 11/04/19 14:28 Date of discharge: 11/07/19 Attending physician: GENEVIEVE MOSES 11/03/19 05:43 Consult to Physician [CONS] Routine Comment: Consulting Provider: ZULMA RAMIREZ Physician Instructions: Reason For Exam: f menorrhagia 11/04/19 08:21 Consult to Physician [CONS] Routine Comment: Consulting Provider: MELISSA ESCALANTE Physician Instructions: Reason For Exam: thrombocytopenia Primary care physician: EMBEDDED SYSTEMS SOFTWARE DEVELOPER Hospitalization Condition: Fair Hospital course: This is a 44-year-old -[place] female with a history of developmental delay presented to the hospital with symptoms of weakness and fatigue for 1 week. According to patient mother patient was having heavy periods once a month for the last year. On admission her hemoglobin was noted to be 2.1. She also noted hypotensive. And was transferred to ICU, given IV fluid bolus, transfused total 8 units of packed RBC. FAITH DOCTOR was consulted and recommended total abdominal hysterectomy, which was completed on 11/05. Patient's H&H remained stable following the surgical procedure. Patient tolerated the procedure well, she was then discharged home in stable condition with outpatient follow-up with FAITH DOCTOR. Discharge diagnosis and management. Severe Symptomatic Anemia -Due to menorrhagia from fibroid uterus - s/p 8 unit PRBC transfused - hb on admission was 2.1 and improved to 9.0 following transfusion and hysterectomy -Patient was discharged home with iron supplement Hypertension, present on admission -Due to severe anemia, resolved with packed RBC transfusion and IV fluid Menorrhagia -Due to fibroid uterus -Status post hysterectomy yesterday Thrombocytopenia -Monitor CBC and coag, improved Fibroid Uterus -FAITH DOCTOR consulted, surgical options has been discussed - s/p hysterectomy 11/05 -Patient will continue postop follow-up with FAITH DOCTOR as outpatient Developmental Delay -Continue supportive care DVT prophylaxis, SCD Physical exam: General appearance: Present: no acute distress - EENT Eyes: PERRL, EOM intact ENT: hearing intact, clear oral mucosa Ears: bilateral: normal - Neck Neck: supple, normal ROM - Respiratory Respiratory effort: normal Respiratory: bilateral: CTA - Cardiovascular Rhythm: regular Heart Sounds: Present: S1 & S2. Absent: gallop, rub Extremities: pulses intact, No edema, normal color, Full ROM - Gastrointestinal General gastrointestinal: Present: soft, non-tender, non-distended, normal bowel sounds - Integumentary Integumentary: clear, warm, dry - Musculoskeletal Musculoskeletal: 1, strength equal bilaterally - Neurologic Neurologic: moves all extremities - Psychiatric Psychiatric: cooperative Disposition: DC/[place]-06 HOME UNDER HOME [facility] Time spent for discharge: 34 minutes Core Measure Documentation - Palliative Care Palliative Care/ Comfort Measures: Not Applicable - Core Measures Any of the following diagnoses?: none Exam - Constitutional Vitals: Temp Pulse Resp BP Pulse Ox 97.9 F 53 L 20 123/66 100 11/07/19 12:30 11/07/19 12:30 11/07/19 12:30 11/07/19 12:30 11/07/19 12:30 Plan Activity: fall precautions Weight Bearing Status: Non-Weight Bearing Diet: advance as tolerated Wound: per your surgeon's advice Additional Instructions: F/u with obg/optician in one week Follow up with: PRIMARY CARE, [Primary Care Provider] - 3-5 Days Prescriptions: Docusate Sodium [Colace] 100 mg PO BID PRN #60 capsule PRN Reason: Constipation Ibuprofen [Motrin] 800 mg PO Q8HR PRN #60 tablet PRN Reason: Pain, Mild (1-3) oxyCODONE /ACETAMINOPHEN [Percocet 5/325] 1 tab PO Q6HR PRN #30 tablet PRN Reason: Pain
[2019-11-07] MEDS: MAGNESIUM HYDROXIDE (MOM) ORAL LIQD UDC PO PRN ×2 (17:56→22:44)
[2019-11-08] MEDS: IBUPROFEN 600 MG TAB PO SCH ×2 (01:37→06:12)
[2019-11-08] MEDS: KETOROLAC 30 MG/1 ML INJ IV SCH ×2 (01:38→05:23)
[2019-11-08] MEDS: oxyCODONE /ACETAMINOPHEN 5-325MG TAB PO PRN ×2 (05:24→10:52)
[2019-11-08] MEDS: MAGNESIUM HYDROXIDE (MOM) ORAL LIQD UDC PO PRN (10:52)
[2019-11-08] MEDS: FERROUS SULFATE 325 MG TAB PO SCH ×2 (10:52→12:00)
--- NOTE | 2019-11-08 11:23 | Progress Note ---
Assessment and Plan A/P POD hysterectomy POST op doing well discharge home Subjective - Subjective Date of service: 11/08/19 Principal diagnosis: dysfunctional uterine bleeding; fibroids Patient reports: appetite normal, voiding normally, pain well controlled, flatus, ambulating normally Objective - Vital Signs Latest vital signs: Vital Signs Temp Pulse Pulse Resp Resp BP BP 11/08/19 09:20 98.4 F 51 L 18 138/59 11/08/19 06:24 18 11/08/19 05:24 18 11/08/19 05:06 98.8 F 55 L 14 127/55 11/08/19 00:37 97.3 F L 60 16 137/70 11/07/19 23:43 18 11/07/19 23:00 18 11/07/19 22:43 18 11/07/19 20:47 98.4 F 55 L 20 143/75 11/07/19 20:00 80 18 11/07/19 15:49 97.7 F 63 20 98/51 11/07/19 12:30 97.9 F 53 L 20 123/66 Pulse Ox 11/08/19 09:20 97 11/08/19 06:24 11/08/19 05:24 11/08/19 05:06 96 11/08/19 00:37 97 11/07/19 23:43 11/07/19 23:00 11/07/19 22:43 11/07/19 20:47 100 11/07/19 20:00 11/07/19 15:49 99 11/07/19 12:30 100 Intake and Output 11/07/19 11/08/19 11/08/19 23:59 07:59 15:59 Intake Total 360 Balance 360 Intake: Oral 240 Intake, Free Water 120 Other: Total, Intake Amount 240 Voiding Method Toilet Toilet # Voids Void 1 - Exam Breasts: Present: normal Cardiovascular: Present: Regular rate, Normal S1 Lungs: Present: Clear to auscultation, Normal air movement Abdomen: Present: normal appearance, soft, normal bowel sounds. Absent: distention, tenderness, guarding Uterus: Present: normal, firm. Absent: bogginess, tenderness Extremities: Present: normal Deep Tendon Reflex Grade: Normal +2
--- NOTE | 2019-11-08 11:24 | Discharge Summary ---
Providers - Providers Date of Admission: 11/04/19 14:28 Date of discharge: 11/08/19 Attending physician: GENEVIEVE MOSES 11/03/19 05:43 Consult to Physician [CONS] Routine Comment: Consulting Provider: ZULMA RAMIREZ Physician Instructions: Reason For Exam: f menorrhagia 11/04/19 08:21 Consult to Physician [CONS] Routine Comment: Consulting Provider: MELISSA ESCALANTE Physician Instructions: Reason For Exam: thrombocytopenia Primary care physician: REGIONAL RECRUITER Hospitalization Reason for admission: other Incision: normal, dry, intact Condition at discharge: Good Disposition: DC-01 TO HOME OR SELFCARE Plan - Discharge Medications Prescriptions: Docusate Sodium [Colace] 100 mg PO BID PRN #60 capsule PRN Reason: Constipation Ibuprofen [Motrin] 800 mg PO Q8HR PRN #60 tablet PRN Reason: Pain, Mild (1-3) oxyCODONE /ACETAMINOPHEN [Percocet 5/325] 1 tab PO Q6HR PRN #30 tablet PRN Reason: Pain - Provider Discharge Summary Activity: routine, no sex for 6 weeks, no strenuous exercise Diet: routine Instructions: routine Additional instructions: [] Smoking cessation referral if applicable(refer to patient education folder for contact #) [] Refer to [facility]'s [facility] Booklet Call your doctor immediately for: * Fever > 100.5 * Heavy vaginal bleeding ( >1 pad per hour) * Severe persistent headache * Shortness of breath * Reddened, hot, painful area to leg or breast * Drainage or odor from incision. * Keep incision clean and dry at all times and follow doctor's instructions regarding bathing/showering - Follow up plan Follow up: PRIMARY MD DELICIA [Primary Care Provider] - 14 Days Forms: [facility] Discharge Summary
--- NOTE | 2019-11-08 14:58 | Progress Note ---
Assessment and Plan Severe Symptomatic Anemia -Due to menorrhagia from fibroid uterus - s/p 8 unit PRBC transfused - hb on admission was 2.1 -Continue to monitor CBC Menorrhagia -Due to fibroid uterus -Currently has scanty vaginal discharge Thrombocytopenia -Monitor for now, coags has been ordered Fibroid Uterus -SURVEY TECHNICIAN consulted, surgical options has been discussed - s/p hysterectomy POD 1 Developmental Delay -Continue supportive care DVT prophylaxis, SCD Discharge planning: Per SURVEY TECHNICIAN. Patient is medically stable Physical exam: General appearance: Present: no acute distress - EENT Eyes: PERRL, EOM intact ENT: hearing intact, clear oral mucosa Ears: bilateral: normal - Neck Neck: supple, normal ROM - Respiratory Respiratory effort: normal Respiratory: bilateral: CTA - Cardiovascular Rhythm: regular Heart Sounds: Present: S1 & S2. Absent: gallop, rub Extremities: pulses intact, No edema, normal color, Full ROM - Gastrointestinal General gastrointestinal: Present: soft, non-tender, non-distended, normal bowel sounds - Integumentary Integumentary: clear, warm, dry - Musculoskeletal Musculoskeletal: 1, strength equal bilaterally - Neurologic Neurologic: moves all extremities - Psychiatric Psychiatric: cooperative Subjective Date of service: 11/07/19 Principal diagnosis: dysfunctional uterine bleeding; fibroids Interval history: Patient seen and examined H/H stable, no massive vaginal bleeding Mother at bedside, updated Objective - Constitutional Vitals: Vital Signs - 12hr 11/08/19 11/08/19 11/08/19 05:06 05:24 06:24 Temperature 98.8 F Pulse Rate 55 L Respiratory 14 18 18 Rate Blood Pressure 127/55 Blood Pressure [Left] O2 Sat by Pulse 96 Oximetry 11/08/19 11/08/19 09:20 12:37 Temperature 98.4 F 97.1 F L Pulse Rate 51 L 53 L Respiratory 18 18 Rate Blood Pressure 129/64 Blood Pressure 138/59 [Left] O2 Sat by Pulse 97 100 Oximetry - Labs CBC & Chem 7: 11/07/19 07:11 11/04/19 07:10
--- NOTE | 2019-11-08 15:00 | Progress Note ---
Assessment and Plan Severe Symptomatic Anemia -Due to menorrhagia from fibroid uterus - s/p 8 unit PRBC transfused - hb on admission was 2.1 and improved to 9.0 following transfusion and hysterectomy -Patient was discharged home with iron supplement Hypertension, present on admission -Due to severe anemia, resolved with packed RBC transfusion and IV fluid Menorrhagia -Due to fibroid uterus -Status post hysterectomy yesterday Thrombocytopenia -Monitor CBC and coag, improved Fibroid Uterus -SUPERVISOR HARD CANDY consulted, surgical options has been discussed - s/p hysterectomy 11/05 -Patient will continue postop follow-up with SUPERVISOR HARD CANDY as outpatient Developmental Delay -Continue supportive care DVT prophylaxis, SCD Disposition: Plan to DC today Physical exam: General appearance: Present: no acute distress - EENT Eyes: PERRL, EOM intact ENT: hearing intact, clear oral mucosa Ears: bilateral: normal - Neck Neck: supple, normal ROM - Respiratory Respiratory effort: normal Respiratory: bilateral: CTA - Cardiovascular Rhythm: regular Heart Sounds: Present: S1 & S2. Absent: gallop, rub Extremities: pulses intact, No edema, normal color, Full ROM - Gastrointestinal General gastrointestinal: Present: soft, non-tender, non-distended, normal bowel sounds - Integumentary Integumentary: clear, warm, dry - Musculoskeletal Musculoskeletal: 1, strength equal bilaterally - Neurologic Neurologic: moves all extremities - Psychiatric Psychiatric: cooperative Subjective Date of service: 11/08/19 Principal diagnosis: dysfunctional uterine bleeding; fibroids Interval history: Patient seen and examined H/H stable, no massive vaginal bleeding Mother at bedside, updated Objective - Constitutional Vitals: Vital Signs - 12hr 11/08/19 11/08/19 11/08/19 05:06 05:24 06:24 Temperature 98.8 F Pulse Rate 55 L Respiratory 14 18 18 Rate Blood Pressure 127/55 Blood Pressure [Left] O2 Sat by Pulse 96 Oximetry 11/08/19 11/08/19 09:20 12:37 Temperature 98.4 F 97.1 F L Pulse Rate 51 L 53 L Respiratory 18 18 Rate Blood Pressure 129/64 Blood Pressure 138/59 [Left] O2 Sat by Pulse 97 100 Oximetry - Labs CBC & Chem 7: 11/07/19 07:11 11/04/19 07:10
[2019-11-08 18:28] VITALS: BP 130/71
== END 2019-11-08 16:40 | disposition home or self-care (01) | DRG 742 ==
LOC: ED 00:41 → IMCU 06:00 → CC1 18:57 → OB 11-04 11:08 → OBSVTOIN 11-04 14:28
PROVIDERS: ADMIT Internal Medicine; ATTEND Obstetrics & Gynecology
PROC: 30233N1 Transfusion of Nonautologous Red Blood Cells into Peripheral Vein, Percutaneous Approach (ICD-10-PCS; 2019-11-04)
PROC: 0UT90ZZ Resection of Uterus, Open Approach (ICD-10-PCS; principal; 2019-11-06)
DX: D25.9 Leiomyoma of uterus, unspecified (principal); D62 Acute posthemorrhagic anemia; D69.6 Thrombocytopenia, unspecified; N93.8 Other specified abnormal uterine and vaginal bleeding; I10 Essential (primary) hypertension; N92.0 Excessive and frequent menstruation with regular cycle; Z90.89 Acquired absence of other organs; Z82.49 Family history of ischemic heart disease and other diseases of the circulatory system
CPT/HCPCS: 36415; 36430; 64450; 76856; 80048; 81001; 84702; 85007; 85014; 85018; 85025; 85027; 85610; 85730; 86850; 86900; 86901; 86920; 87116; 88307; 96374; G0378; J1100; J1170; J1885; J2250; J2370; J2405; J2704; J2710; J2916; J7030; J7040; J7120; J7121; P9016